=== PATIENT | male | born 1960 | race Two or more races ===

== ENCOUNTER 2022-11-12 06:23 | Outpatient (REF) | payer MEDICARE, MEDICAID, SELFPAY ==
[2022-11-12 06:33] LABS: MANUAL DIFF FLAG NO
[2022-11-12 07:38] LABS: Basophils Percent Auto 0.5 % (0-2); Eosinophils Absolute Auto 0.2 X10*3/uL (0.0-0.4); Eosinophils Percent Auto 2.9 % (0-4); Hematocrit 43.6 % (42.0-52.0); Hemoglobin 14.5 g/dl (14.0-18.0); Imm Gran Abs Auto 0.03 X10*3/uL (0.00-0.03); Imm Gran Pct Auto 0.4 % (0.0-0.4); Lymphocytes Absolute Auto 1.2 X10*3/uL (1.2-4.9); Lymphocytes Percent Auto 14.3 % (20-40); Mean Corpuscular HGB Conc 33.3 g/dl (31.0-36.0); Mean Corpuscular Hemoglobin 29.8 pg (27.0-33.0); Mean Corpuscular Volume 89.5 fL (80.0-98.0); Mean Platelet Volume 11.5 fL (9.4-12.4); Monocytes Absolute Auto 0.8 X10*3/uL (0.1-1.2); Monocytes Percent Auto 9.9 % (2-11); Neutrophils Absolute Auto 6.1 x10*3/uL (2.0-8.3); Platelet Count 221 X10*3/uL (160-400); Red Blood Count 4.87 X10*6/uL (4.60-5.80); Red Cell Distribution Width 12.8 % (11.0-16.0); White Blood Count 8.4 X10*3/uL (4.8-10.8)
[2022-11-12 07:51] LABS: Estimated Average Glucose 131 mg/dL; Hemoglobin A1c % 6.2 %
[2022-11-12 08:23] LABS: Alanine Aminotransferase 27 U/L (0-40); Alkaline Phosphatase 59 U/L (39-117); Anion Gap 17 (12-20); Aspartate Amino Transferase 33 U/L (5-37); Bilirubin Total 0.9 mg/dL (0.0-1.0); Blood Urea Nitrogen 14 mg/dL (9-16); Calcium 9.6 mg/dL (8.4-10.2); Carbon Dioxide 27 mmol/L (22-29); Chloride 103 mmol/L (96-108); Cholesterol 212 mg/dL; Estimated Glomerular Filt Rate 44; Glucose Random 134 mg/dL (60-115); HDL Cholesterol 50 mg/dL; LDL Cholesterol Calculated 118 mg/dl; Sodium 142 mmol/L (135-145); Total Protein 7.6 g/dL (6.5-8.0); Triglycerides 220 mg/dL
[2022-11-12 08:31] LABS: PSA,Total (Free>4and<10) 1.32 ng/mL (0.00-4.00); TSH reflex Free T4 > 100.00 uIU/mL (0.32-4.0); Vitamin D 25-OH Total 23.8 ng/mL (>30)
[2022-11-12 09:23] LABS: Free T4 (Free Thyroxine) < 0.42 ng/dL (0.71-1.85)
== END 2022-11-12 06:24 | disposition home or self-care (01) ==
LOC: HO.LAB 06:23
PROVIDERS: PCP Nurse Practitioner Family; Visit Provider Nurse Practitioner Family
DX: E03.9 Hypothyroidism, unspecified (principal); E55.9 Vitamin D deficiency, unspecified; E78.5 Hyperlipidemia, unspecified; E11.9 Type 2 diabetes mellitus without complications; I10 Essential (primary) hypertension; Z13.0 Encounter for screening for diseases of the blood and blood-forming organs and certain disorders involving the immune mechanism; Z12.5 Encounter for screening for malignant neoplasm of prostate
CPT/HCPCS: 36415; 80053; 80061; 82306; 83036; 84153; 84439; 84443; 85025

== ENCOUNTER 2022-12-10 07:52 | Outpatient (REF) | payer MEDICARE, MEDICAID, SELFPAY ==
[2022-12-10 09:22] LABS: Alanine Aminotransferase 18 U/L (0-40); Albumin Level 4.5 g/dL (3.5-5.0); Alkaline Phosphatase 42 U/L (39-117); Anion Gap 13 (12-20); Aspartate Amino Transferase 20 U/L (5-37); Blood Urea Nitrogen 17 mg/dL (9-16); Calcium 9.3 mg/dL (8.4-10.2); Carbon Dioxide 27 mmol/L (22-29); Chloride 105 mmol/L (96-108); Estimated Glomerular Filt Rate 53; Glucose Random 133 mg/dL (60-115); Potassium 5.1 mmol/L (3.3-5.1); Sodium 140 mmol/L (135-145); TSH reflex Free T4 1.18 uIU/mL (0.32-4.0)
== END 2022-12-10 07:53 | disposition home or self-care (01) ==
LOC: HO.LAB 07:52
PROVIDERS: PCP Nurse Practitioner Family; Visit Provider Nurse Practitioner Family
DX: R79.89 Other specified abnormal findings of blood chemistry (principal); E03.9 Hypothyroidism, unspecified
CPT/HCPCS: 36415; 80053; 84443

== ENCOUNTER → 2023-02-18 13:54 | Outpatient (BNVA) | payer OTHER, SELFPAY | PROVIDERS: PCP Nurse Practitioner Family; Visit Provider Nurse Practitioner Family ==

== ENCOUNTER 2023-02-28 00:27 | Emergency (ER) | payer OTHER, SELFPAY ==
[2023-02-28 00:36] VITALS: BP 111/81; PULSE 92; RESP 24; TEMP 37.1; O2SAT 96; BMI 30.3
--- NOTE | 2023-02-28 01:10 | ECG_ITS ---
Test Reason : SOB Blood Pressure : / mmHG Vent. Rate : 097 BPM Atrial Rate : 097 BPM P-R Int : 146 ms QRS Dur : 074 ms QT Int : 328 ms P-R-T Axes : 064 007 047 degrees QTc Int : 416 ms Normal sinus rhythm Normal ECG No previous ECGs available Referred By: Generic ED Physician Electronically Signed By:Mio Charles
[2023-02-28 01:25] LABS: MANUAL DIFF FLAG NO
[2023-02-28 01:30] LABS: Basophils Percent Auto 0.3 % (0-2); Eosinophils Absolute Auto 0.1 X10*3/uL (0.0-0.4); Eosinophils Percent Auto 1.1 % (0-4); Hematocrit 41.4 % (42.0-52.0); Hemoglobin 13.8 g/dl (14.0-18.0); Imm Gran Abs Auto 0.03 X10*3/uL (0.00-0.03); Imm Gran Pct Auto 0.5 % (0.0-0.4); Lymphocytes Absolute Auto 1.1 X10*3/uL (1.2-4.9); Lymphocytes Percent Auto 16.8 % (20-40); Mean Corpuscular HGB Conc 33.3 g/dl (31.0-36.0); Mean Corpuscular Hemoglobin 28.8 pg (27.0-33.0); Mean Corpuscular Volume 86.3 fL (80.0-98.0); Mean Platelet Volume 10.7 fL (9.4-12.4); Monocytes Absolute Auto 0.6 X10*3/uL (0.1-1.2); Monocytes Percent Auto 9.5 % (2-11); Neutrophils Absolute Auto 4.6 x10*3/uL (2.0-8.3); Neutrophils Percent Auto 71.8 % (45-73); Platelet Count 267 X10*3/uL (160-400); Red Cell Distribution Width 11.7 % (11.0-16.0); White Blood Count 6.4 X10*3/uL (4.8-10.8)
[2023-02-28 01:38] LABS: INTERNATIONAL NORM RATIO 0.8 (0.9-1.1)
[2023-02-28 01:39] LABS: Anion Gap 13 (12-20); Blood Urea Nitrogen 16 mg/dL (9-16); Calcium 9.6 mg/dL (8.4-10.2); Carbon Dioxide 27 mmol/L (22-29); Chloride 105 mmol/L (96-108); Creatinine Clr Calc Pharmacy 57.8; Estimated Glomerular Filt Rate 55; Glucose Random 198 mg/dL (60-115); Potassium 4.3 mmol/L (3.3-5.1); Sodium 141 mmol/L (135-145)
[2023-02-28 01:45] VITALS: BP 140/73; PULSE 90; RESP 15; O2SAT 96
[2023-02-28 01:47] LABS: Troponin-I High Sensitivity 3.3 ng/L (<3.5-35.0)
--- NOTE | 2023-02-28 01:53 | ED.GENADULT ---
HPI - General Adult General Chief complaint: Dyspnea Stated complaint: Acid Reflex issue Time Seen by Provider: 02/28/23 00:37 Source: patient Mode of arrival: ambulatory Limitations: no limitations History of Present Illness HPI narrative: Patient with history of gastric reflux on Protonix lately been acting up had food at 15:30 went to sleep woke with nausea and vomited 3 times with acid feeling in the throat patient has not had endoscopy at no recent illness/urinary complaints no abdominal discomfort Related Data Previous Rx's Medication Instructions Recorded amlodipine 5 mg tablet 5 mg PO DAILY #30 tabs 11/12/22 aspirin 81 mg tablet,delayed 81 mg PO DAILY #30 tabs 11/12/22 release atorvastatin 20 mg tablet 20 mg PO DAILY #30 tabs 11/12/22 clonazepam 1 mg tablet 1 mg PO BEDTIME #14 tabs 11/12/22 fenofibrate 120 mg tablet 120 mg PO DAILY #30 tabs 11/12/22 levothyroxine 150 mcg capsule 150 mcg PO DAILY #30 caps 11/12/22 losartan 100 mg tablet 100 mg PO DAILY #30 tabs 11/12/22 metformin 850 mg tablet 850 mg PO DAILY #30 tabs 11/12/22 tamsulosin 0.4 mg capsule (Flomax) 0.4 mg PO DAILY #30 caps 11/12/22 cyclobenzaprine 5 mg tablet 5 mg PO TID PRN muscle spasm #14 12/12/22 tabs bisacodyl 5 mg tablet,delayed 10 mg PO ONCE 1 day #2 tabs 02/18/23 release (Dulcolax (bisacodyl)) docusate sodium 100 mg capsule 100 mg PO BEDTIME #90 caps 02/18/23 pantoprazole 40 mg tablet,delayed 40 mg PO DAILY #90 tabs 02/18/23 release polyethylene glycol 3350 17 238 g PO ONCE #238 grams 02/18/23 gram/dose oral powder (Miralax) sucralfate 1 gram tablet 1 g PO BID #60 tabs 02/28/23 Allergies Allergy/AdvReac Type Severity Reaction Status Date / Time No Known Allergies Allergy Verified 02/18/23 14:10 [No Known Allergies*] Review of Systems Review of Systems: Yes all other systems are reviewed and are negative PMFSH Past Medical History Medical History Tubular adenoma of colon Vitamin D deficiency Family History Family History Mother Gangrene Father Diabetes Brother Diabetes Sister Diabetes Social History Social History Housing: Apartment Alcohol intake: current Alcohol intake frequency: holidays/special occasions only Patient Tobacco Use Status: Former Tobacco user Tobacco use type: Cigarette Years Smoked: Quit 6 years ago. Smoked in Last 30 Days: No e-Cigarette/Vaping Use: Never Used Use of substances other than those prescribed or required for medical reasons: No Advance Directives: No Advance Directives Information Provided: Yes service: No Current occupational status: retired Cognitive needs: No Hearing needs: No Vision needs: Yes (reading glasses) Physical Exam ED Vital Signs: Vital Signs - 24 hr 02/28/23 00:36 02/28/23 01:45 Temperature 98.7 F Pulse Rate 92 90 Respiratory Rate 24 H 15 Blood Pressure 111/81 140/73 H Pulse Oximetry 96 96 Oxygen Delivery Method Room Air Room Air BMI result Body Mass Index 30.3 Appearance: Alert. Oriented X3. No acute distress. Eyes: PERRLA, No Nystagmus ENT: Pharynx normal. Oral Mucosa moist Neck: Normal inspection. Neck supple. CVS: Normal heart rate and rhythm. Pulses normal. Respiratory: No respiratory distress. Equal air entry bilateral, no wheezing/rales/rhonchi Abdomen: Soft and nontender. Bowel sounds are present, no mass palpable, no CVA tenderness Skin: Skin warm and dry. Normal skin color. Normal skin turgor. Extremities: No lower extremity edema. No calf tenderness Neuro: Oriented X 3. No motor deficit. No sensory deficit.No cerebellar signs , cranial nerves II-XII intact Medications Administered Discontinued Medications Generic Name Dose Route Start Last Admin Trade Name Freq PRN Reason Stop Dose Admin Famotidine 20 mg 02/28/23 02:02 02/28/23 02:34 Famotidine/Pf 20 Mg/2 Ml Vial IVPUSH 02/28/23 02:03 20 mg ONCE ONE Administration Sodium Chloride 1,000 mls @ 999 mls/hr 02/28/23 02:02 02/28/23 02:34 Ns IV 02/28/23 03:02 999 mls/hr .Q1H1M ONE Administration Ondansetron HCl 4 mg 02/28/23 02:02 02/28/23 02:34 Ondansetron Hcl 4 Mg/2 Ml Vial IVPUSH 02/28/23 02:03 4 mg ONCE ONE Administration Medical Decision Making Medical Decision Making [facility] Narrative: Patient has stable labs with chronic gastritis has not seen any public address system mechanic yet plan to see you soon t, will discharge home advised to continue Protonix add sucralfate Differential Diagnosis Differential Diagnoses: The differential diagnosis associated with the presentation includes Gastritis/pancreatitis/gastric ulcer Lab Data [facility] Lab Attestation statement: I reviewed the patient's lab results. 02/28/23 01:21 02/28/23 01:21 Labs: Lab Results 02/28/23 02/28/23 02/28/23 Range/Units 01:21 01:21 01:21 WBC 6.4 (4.8-10.8) X10*3/uL RBC 4.80 (4.60-5.80) X10*6/uL Hgb 13.8 L (14.0-18.0) g/dl Hct 41.4 L (42.0-52.0) % MCV 86.3 (80.0-98.0) fL MCH 28.8 (27.0-33.0) pg MCHC 33.3 (31.0-36.0) g/dl RDW 11.7 (11.0-16.0) % Plt Count 267 (160-400) X10*3/uL MPV 10.7 (9.4-12.4) fL Immature Gran % (Auto) 0.5 H (0.0-0.4) % Neut % (Auto) 71.8 (45-73) % Lymph % (Auto) 16.8 L (20-40) % [place] % (Auto) 9.5 (2-11) % Eos % (Auto) 1.1 (0-4) % Baso % (Auto) 0.3 (0-2) % Lymph # (Auto) 1.1 L (1.2-4.9) X10*3/uL [place] # (Auto) 0.6 (0.1-1.2) X10*3/uL Eos # (Auto) 0.1 (0.0-0.4) X10*3/uL Baso # (Auto) 0.0 (0.0-0.2) X10*3/uL Abs Immat Gran (auto) 0.03 (0.00-0.03) X10*3/uL Absolute Neuts (auto) 4.6 (2.0-8.3) x10*3/uL Absolute Nucleated RBC 0.000 (0.0-0.012) X10*3/uL Nucleated RBC % (auto) 0.0 (0.0-0.2) /100WBC PT 10.0 L (11.1-13.3) SEC INR 0.8 L (0.9-1.1) Sodium 141 (135-145) mmol/L Potassium 4.3 (3.3-5.1) mmol/L Chloride 105 (96-108) mmol/L Carbon Dioxide 27 (22-29) mmol/L Anion Gap 13 (12-20) BUN 16 (9-16) mg/dL Creatinine 1.32 (0.5-1.4) mg/dL Estim Creat Clear Calc 57.8 Estimated GFR 55 Random Glucose 198 H (60-115) mg/dL Calcium 9.6 (8.4-10.2) mg/dL Total Bilirubin 0.3 (0.0-1.0) mg/dL Direct Bilirubin 0.1 (0.0-0.5) mg/dL AST 27 (5-37) U/L ALT 42 H (0-40) U/L Alkaline Phosphatase 45 (39-117) U/L Troponin I High Sens (<3.5-35.0) ng/L Total Protein 7.0 (6.5-8.0) g/dL Albumin 4.3 (3.5-5.0) g/dL Lipase 25 (8-78) U/L 02/28/23 Range/Units 01:21 WBC (4.8-10.8) X10*3/uL RBC (4.60-5.80) X10*6/uL Hgb (14.0-18.0) g/dl Hct (42.0-52.0) % MCV (80.0-98.0) fL MCH (27.0-33.0) pg MCHC (31.0-36.0) g/dl RDW (11.0-16.0) % Plt Count (160-400) X10*3/uL MPV (9.4-12.4) fL Immature Gran % (Auto) (0.0-0.4) % Neut % (Auto) (45-73) % Lymph % (Auto) (20-40) % [place] % (Auto) (2-11) % Eos % (Auto) (0-4) % Baso % (Auto) (0-2) % Lymph # (Auto) (1.2-4.9) X10*3/uL [place] # (Auto) (0.1-1.2) X10*3/uL Eos # (Auto) (0.0-0.4) X10*3/uL Baso # (Auto) (0.0-0.2) X10*3/uL Abs Immat Gran (auto) (0.00-0.03) X10*3/uL Absolute Neuts (auto) (2.0-8.3) x10*3/uL Absolute Nucleated RBC (0.0-0.012) X10*3/uL Nucleated RBC % (auto) (0.0-0.2) /100WBC PT (11.1-13.3) SEC INR (0.9-1.1) Sodium (135-145) mmol/L Potassium (3.3-5.1) mmol/L Chloride (96-108) mmol/L Carbon Dioxide (22-29) mmol/L Anion Gap (12-20) BUN (9-16) mg/dL Creatinine (0.5-1.4) mg/dL Estim Creat Clear Calc Estimated GFR Random Glucose (60-115) mg/dL Calcium (8.4-10.2) mg/dL Total Bilirubin (0.0-1.0) mg/dL Direct Bilirubin (0.0-0.5) mg/dL AST (5-37) U/L ALT (0-40) U/L Alkaline Phosphatase (39-117) U/L Troponin I High Sens 3.3 (<3.5-35.0) ng/L Total Protein (6.5-8.0) g/dL Albumin (3.5-5.0) g/dL Lipase (8-78) U/L Discharge Plan Discharge Clinical Impression: Chronic gastritis Patient Disposition: Home, Self-Care Instructions: Gastritis (ED) Additional Instructions: Continue medications as prescribed by your PCP Start taking sucralfate 1 tablet half an hour before you have meals Follow with PCP/public address system mechanic for endoscopy Prescriptions: New sucralfate 1 gram tablet 1 g PO BID Qty: 60 0RF No Action amlodipine 5 mg tablet 5 mg PO DAILY Qty: 30 3RF aspirin 81 mg tablet,delayed release (DR/EC) 81 mg PO DAILY Qty: 30 3RF atorvastatin 20 mg tablet 20 mg PO DAILY Qty: 30 3RF clonazepam 1 mg tablet 1 mg PO BEDTIME Qty: 14 0RF Rx Instructions: administer 30 minutes before bedtime fenofibrate 120 mg tablet 120 mg PO DAILY Qty: 30 3RF levothyroxine 150 mcg capsule 150 mcg PO DAILY Qty: 30 3RF losartan 100 mg tablet 100 mg PO DAILY Qty: 30 3RF metformin 850 mg tablet 850 mg PO DAILY Qty: 30 3RF tamsulosin [Flomax] 0.4 mg capsule 0.4 mg PO DAILY Qty: 30 3RF cyclobenzaprine 5 mg tablet 5 mg PO TID PRN (Reason: muscle spasm) Qty: 14 0RF pantoprazole 40 mg tablet,delayed release (DR/EC) 40 mg PO DAILY Qty: 90 2RF Rx Instructions: take one tablet half an hour before breakfast bisacodyl [Dulcolax (bisacodyl)] 5 mg tablet,delayed release (DR/EC) 10 mg PO ONCE 1 Days Qty: 2 0RF Rx Instructions: take 2 tabs at noon the day before your colonoscopy polyethylene glycol 3350 [Miralax] 17 gram/dose powder 238 g PO ONCE Qty: 238 0RF Rx Instructions: As directed by gastroenterology department at [facility] docusate sodium 100 mg capsule 100 mg PO BEDTIME Qty: 90 3RF Referrals: Thanh Nwoak MD [Physician] - 2 weeks Print Language: Czech
[2023-02-28 02:15] LABS: Alanine Aminotransferase 42 U/L (0-40); Albumin Level 4.3 g/dL (3.5-5.0); Alkaline Phosphatase 45 U/L (39-117); Aspartate Amino Transferase 27 U/L (5-37); Bilirubin Direct 0.1 mg/dL (0.0-0.5); Bilirubin Total 0.3 mg/dL (0.0-1.0); Lipase 25 U/L (8-78)
[2023-02-28] MEDS: Famotidine/PF 20 MG/2 ML VIAL IVPUSH (02:34)
[2023-02-28] MEDS: ondansetron HCL 4 MG/2 ML VIAL IVPUSH (02:34)
[2023-02-28] MEDS: 0.9 % Sodium Chloride 1,000 ML 999 ML IV (02:34)
== END 2023-02-28 03:54 | disposition home or self-care (01) ==
PROVIDERS: Emergency Provider Internal Medicine; PCP Nurse Practitioner Family
DX: K29.50 Unspecified chronic gastritis without bleeding (principal); R11.2 Nausea with vomiting, unspecified; I10 Essential (primary) hypertension; E78.5 Hyperlipidemia, unspecified; Z79.82 Long term (current) use of aspirin; Z79.899 Other long term (current) drug therapy
CPT/HCPCS: 36415; 80048; 80076; 83690; 84484; 85025; 85610; 93005; 96361; 96374; 96375; 99284; 99285; J2405

== ENCOUNTER → 2023-02-28 01:10 | Outpatient (BNV) | payer OTHER, SELFPAY | PROVIDERS: Emergency Provider Internal Medicine; PCP Nurse Practitioner Family; Visit Provider Internal Medicine Cardiovascular Disease | DX: R06.02 Shortness of breath (principal) | CPT/HCPCS: 93010 ==

== ENCOUNTER 2023-03-05 10:00 | Outpatient (RCR) | payer OTHER, SELFPAY ==
--- NOTE | 2023-02-11 15:19 | MHC.PT.EP ---
[facility] [place] Office [place] Office [place] Office [address] Jessica Jefferson [address] [phone] F: [phone] F: [phone] F: [phone] F: [phone] Physical Therapy Plan of Care Date of Evaluation: Date of Surgery: Diagnosis: LUMBAR BACK PAIN WITH RADICULOPATHY LEFT LE Assessment: 62 YO MALE REF TO PT W PROGRESSIVE H/O LBP AND MORE RECENT RADIC SXS INTO Lt LE. HE RESIDES W HIS DTR IN AN APT AND LEADS A VERY SEDENTARY LIFESTYLE. THE Pt HAS SIGNIF SOFT TISSUE TIGHTNESS IN SHAD HIPS AND POSTERIOR CHAIN, W DECR LUMBOPELVIC AND PROX LEs STRENGTH, AND LIMITED FUNCT MOB TOLERANCE. HE BENEFITTED FROM INITIATING A HEP AND EDUC RE GRADUAL INTRO TO MOVEMENT THROUGHTOUT HIS DAY. HE IS A GOOD CANDIDATE FOR PT TO ADDRESS THE ABOVE FINDINGS , PAIN MGMT, AND DEV A HEP. Frequency and Duration: The patient will be seen 2x WK x 5 WKS Short Term Goals: *INITIATE HEP TO ADDRESS HIP HYPOFLEXIBILITY *Pt'S LBP AND Lt LE RADIC SXS WILL DECR TO -09/27 *Pt DEMON APPROP POSTURE/ BODY MECH W BED MOB/ POSITIONING/ SIT <-> STAND/ CAR TRANSFERS *Pt DISPLAY WFL RANGE W FUNCTIONAL SQUAT MECHANICS Fpc Goals: *Pt WILL IMPROVE LUMBOPELVIC/ Lt LE STRENGTH TO AT LEAST 5-/5 *Pt DEMON WFL HS/ HIP FLEXIB *Pt IMPROVE FUNCTIONAL MOBILITY AND FITNESS WALKING EVIDENT W IMPROVED OSWESTRY SCORE (AT EVAL 33/45 ) *Pt INDEP W PROGR HEP AND SELF-SX MGMT TECHN Treatment Plan: Modalities to reduce pain, spasms and effusion. Manual therapy to restore motion and function. Therapeutic exercise to improve strength and flexibility. Neuromuscular re-education for posture and balance. Therapeutic activities to return to functional activities of daily living. Electronically signed by: MONROE HSIEH,PT Please sign and return to therapist. Thank you for your referral.
--- NOTE | 2023-05-08 07:46 | MHC.PT.DC ---
[facility] [place] Office [place] Office [place] Office [address] Jessica Jefferson [address] [phone] F: [phone] F: [phone] F: [phone] F: [phone] Physical Therapy Discharge Report Diagnosis: LUMBAR BACK PAIN WITH RADICULOPATHY LEFT LE Date of Surgery: Date of Evaluation: 02/11/23 Date of Discharge: 05/08/23 Treatments to Date: 7 Cancellations to Date: 0 No Shows to Date: 0 Discharge Status: Improved Function Independent with HEP Patient Elected to Stop Discharge Summary: THE Pt PROGRESSED IN PT EVIDENT WITH HIS REDUCED LUMBOSACRAL TISSUE TENSION, DECR SUBJECTIVE PAIN, AND IMPROVED FUNCTIONAL MOBILITY TOLERANCE. HE WAS INDEP W HIS HEP. HE RECEIVED 7 VISITS IN PT AND HE DID NOT BOOK ADDITIONAL APPTS. Electronically signed by: MONROE HSIEH,PT Please sign and return to therapist. Thank you for your referral.
== END 2023-05-08 07:46 | disposition home or self-care (01) ==
LOC: HO.PT 10:00
PROVIDERS: PCP Nurse Practitioner Family; Visit Provider Nurse Practitioner Family
DX: M54.16 Radiculopathy, lumbar region (principal)
CPT/HCPCS: 97110; 97140; 97162

== ENCOUNTER 2023-03-17 13:43 | Outpatient (AMB) | payer OTHER, SELFPAY ==
[2023-03-17 14:09] VITALS: BP 126/68; PULSE 67; O2SAT 97; BMI 30.6
--- NOTE | 2023-03-17 14:09 | MHC.PC.OV ---
Vital Signs 03/17/23 14:09 Height 5 ft 6 in Weight 189 lb 8 oz BMI 30.6 BP 126/68 Blood Pressure Location Lt brachial Position Sitting Pulse 67 Pulse Source Pulse Oximeter Pulse Oximetry (%) 97 Oxygen Delivery Method Room Air Intake Visit Reasons: DM, HTN, Hypothyroid Intake Note: Patient is here to follow up on DMII, HTN and Hypothyroid. Emergency Management Program Specialist Required: Yes Emergency Management Program Specialist Language: E Commerce Marketing Analyst Name: [id number] Gilles Information Interpreted: non-clinical & clinical Accompanied by: Self / Same As Patient Allergies No Known Allergies [No Known Allergies*] Allergy (Verified 03/17/23 14:17) Tobacco use date assessed: 12/12/22 Fall risk assessment: No Falls in past year Last assessed Fall Risk: 03/17/23 Dental Screening Dental Screen Date: 03/17/23 Did you have a dental visit in the last 12 months?: No Did you have a dental problem in the last 6 months where you did not have access to dental care?: No Was dental information given to patient?: Yes HPI HPI Comments History of Present Illness Details 62 year old male has a history significant for hyperlipidemia, hypertension, hypothyroidism, DM and lumbar back pain. Presents today for follow up visit. HGB A1C 5.9%. Patient's blood pressure below goal today. Patient reports completed physical therapy continues to side lumbar back pain with lumbar radiculopathy down left leg. Patient reports has difficulty climbing stairs and his has a 3rd floor apartment, patient requesting a letter for 1st floor apartment. Letter given. Review of notes patient was seen in the emergency room for gastritis was started on sulcrafate b.i.d., patient reports still waiting for a call from Gastroenterology for an appointment. [facility] Medical History Tubular adenoma of colon Vitamin D deficiency Family History Mother Gangrene Father Diabetes Brother Diabetes Sister Diabetes Social History Housing: Apartment Alcohol intake: current Alcohol intake frequency: holidays/special occasions only Patient Tobacco Use Status: Former Tobacco user Tobacco use type: Cigarette Years Smoked: Quit 6 years ago. e-Cigarette/Vaping Use: Never Used service: No Current occupational status: retired Cognitive needs: No Hearing needs: No Vision needs: Yes (reading glasses) Questionnaire Thrive Questionnaire Date Thrive assessed: 11/11/22 SANDRA-7 AMB Questionnaire SANDRA-7 Date SANDRA - 7 assessed: 11/11/22 Source: Developed by Drs. Palmer Corona, Lucila Samuels, Trevon Francisco and colleagues, with an educational ryder from [employer]. Review of Systems Const Denies chills, Denies fatigue, Denies fever(s) and Denies poor appetite Eyes Denies no additional complaints ENT Reports Normal hearing present Card Denies chest pain, Denies syncope, Denies rapid heart rate and Denies dyspnea Resp Denies cough and Denies dyspnea GI Denies change in stool character, Denies constipation, Denies diarrhea, Denies nausea and Denies vomiting Denies dysuria, Denies urinary frequency and Denies urinary urgency Musc Reports back pain, Reports numbness (down left leg ), Reports radiating pain into limb and Reports stiffness Neuro Reports Normal hearing present, Denies confusion, Denies syncope and Reports numbness (down left leg ) Psych Denies confusion Endo Denies fatigue Physical exam (Primary Care) Vital Signs: Last Vital Signs Pulse 67 03/17/23 14:09 BP 126/68 03/17/23 14:09 Pulse Ox 97 03/17/23 14:09 Oxygen Delivery Method Room Air 03/17/23 14:09 BMI result Body Mass Index 30.6 Tobacco/Smoking Status: Tobacco use Status Tobacco use date assessed 12/12/22 03/17/23 14:20 Patient Tobacco Use Status Former Tobacco user 03/17/23 14:20 Tobacco use type Cigarette 03/17/23 14:20 e-Cigarette/Vaping Use Never Used 03/17/23 14:20 Thrive Assessment: Date of Thrive Assessment Date Thrive assessed 11/11/22 03/17/23 14:20 Const General: No confusion Orientation/consciousness: No confusion HENMT Head: Yes normocephalic and Yes atraumatic Eyes Conjunctivae: conjunctivae normal Chest Chest palpation & inspection: normal inspection of the chest Resp Effort & Inspection: normal respiratory effort Auscultation: clear to auscultation bilaterally, no crackles, no rhonchi and no wheezes Cardio Rate: regular rate Rhythm: regular rhythm Heart sounds: S1 normal heart sound present and S2 normal heart sound present GI Inspection: Yes normal to inspection Back/Spine/Pelvis Thoracic/Lumbar Spine: thoracic and lumbar spine normal to inspection, paraspinal muscle tenderness on the left, thoracic spinal tenderness and No lumbar spinal tenderness Neuro General: No confusion Cranial nerves: Yes Normal hearing present Extrem General: No edema Results AMB Hemoglobin A1c AMB Hemoglobin A1c 5.9 % Last Edit by OTF Murillo on 03/17/23 14:22 Results Reviewed Results Reviewed: Laboratory Last Values Hgb A1c (Clinic) 5.9 % (4.0-6.0) 03/17/23 14:21 Assessment and Plan Assessment & Plan (1) Hyperlipidemia: Code(s): E78.5 - Hyperlipidemia, unspecified Plan: Continue on atorvastatin 20 mg daily. Follow low-cholesterol diet. (2) Hypertension: Code(s): I10 - Essential (primary) hypertension Plan: Continue on amlodipine 5 mg daily and losartan 100 mg daily. Follow low-salt diet exercise. Blood pressure goal less than 140/90. (3) Hypothyroidism: Code(s): E03.9 - Hypothyroidism, unspecified Plan: Continue on levothyroxine 150 mcg daily. (4) Type 2 diabetes mellitus: Code(s): E11.9 - Type 2 diabetes mellitus without complications Plan: Continue on metformin 850 mg daily. Patient educated to decrease the amount of carbohydrate intake such as pasta, bread, rice and potatoes are all sugar in addition to the sweet stuff. Remember that fruits are good but they also have sugar.Hemoglobin A1c goal of less than 6.5% (5) Lumbar back pain with radiculopathy affecting left lower extremity: Code(s): M54.16 - Radiculopathy, lumbar region Plan: Given patient continues to experiencing left-sided low back pain with radiculopathy the symptoms stone left lower leg will proceed with lumbar spine x-ray symptoms continue to persist following completion of physical therapy will proceed with further imaging. Lumbar spine x-ray ordered. Can continue to take [id number] Tylenol as needed for pain or ibuprofen. Lidoderm patches sent to patient's pharmacy. Follow-up in 1 month (6) Gastritis: Code(s): K29.70 - Gastritis, unspecified, without bleeding Plan: Continue on sulcrafate. Patient awaiting on appointment with Gastroenterology. Plan Follow-up in 3 months. Orders: Orders Comprehensive [place]. Panel Fast Today E11.9 - Type 2 diabetes mellitus without complications Lipid Panel Today Z13.220 - Encounter for screening for lipoid disorders TSH reflex Free T4 Today Z13.29 - Encounter for screening for other suspected endocrine disorder Microalbumin, Random (w Creat) Today E11.9 - Type 2 diabetes mellitus without complications XR lumbar spine 2-3V Today M54.16 - Radiculopathy, lumbar region AMB Hemoglobin A1c Today E11.9 - Type 2 diabetes mellitus without complications Medications: New lidocaine 5% (Lidoderm) leave on most painful area for up to 12 hrs 1 patch topical DAILY 15 ea 0RF Coding Level of Care Code Est Pt Level 4 (52024) Diagnoses Hyperlipidemia E78.5 Hypertension I10 Hypothyroidism E03.9 Type 2 diabetes mellitus E11.9 Lumbar back pain with radiculopathy affecting left lower extremity M54.16 Gastritis K29.70
== END 2023-03-17 14:49 | disposition home or self-care (01) ==
PROVIDERS: Visit Provider Nurse Practitioner Family
DX: E78.5 Hyperlipidemia, unspecified (principal); I10 Essential (primary) hypertension; E03.9 Hypothyroidism, unspecified; E11.9 Type 2 diabetes mellitus without complications; M54.16 Radiculopathy, lumbar region; K29.70 Gastritis, unspecified, without bleeding
CPT/HCPCS: 83036; 99214

== ENCOUNTER 2023-03-19 07:58 | Outpatient (REF) | payer OTHER, MEDICAID, SELFPAY ==
--- NOTE | ~2023-03-19 | XR_ITS ---
EXAMINATION: XR LUMBOSACRAL SPINE CLINICAL INFORMATION: Radiculopathy, pain in the left side. COMPARISON: None available. TECHNIQUE: Three views of the lumbosacral spine. FINDINGS: No acute compression deformity or subluxation. Pars defects at L5-S1. Mild intervertebral disc height loss and facet arthropathy at L5-S1 with minimal grade 1 degenerative anterolisthesis and some degree of neural foraminal encroachment. SI joints are symmetric. Pubic symphysis is maintained. No significant paraspinal soft tissue abnormality. XR/XR lumbar spine 2-3V IMPRESSION: 1. No acute compression deformity or subluxation. 2. Discogenic degenerative disc abnormality, facet arthropathy and neural foraminal encroachment at L5-S1. Recommend further evaluation with an MRI of the lumbar spine if clinically deemed appropriate.
[2023-03-19 09:15] LABS: Alanine Aminotransferase 35 U/L (0-40); Albumin Level 4.4 g/dL (3.5-5.0); Alkaline Phosphatase 41 U/L (39-117); Anion Gap 13 (12-20); Aspartate Amino Transferase 26 U/L (5-37); Bilirubin Total 0.5 mg/dL (0.0-1.0); Blood Urea Nitrogen 12 mg/dL (9-16); Calcium 9.6 mg/dL (8.4-10.2); Carbon Dioxide 27 mmol/L (22-29); Chloride 107 mmol/L (96-108); Cholesterol 144 mg/dL (<200); Estimated Glomerular Filt Rate 58; Glucose Fasting 116 mg/dL (60-99); HDL Cholesterol 40 mg/dL (>40); LDL Cholesterol Calculated 78 mg/dL (<100); Potassium 4.7 mmol/L (3.3-5.1); Sodium 142 mmol/L (135-145); Triglycerides 132 mg/dL (<150)
[2023-03-19 09:31] LABS: TSH reflex Free T4 0.09 uIU/mL (0.32-4.0)
[2023-03-19 09:41] LABS: Creatinine Urine 188.49 mg/dL; Microalbum/Creatinine Ratio Ur 14.8 ug/mg cr (<30)
[2023-03-19 10:06] LABS: Free T4 (Free Thyroxine) 1.21 ng/dL (0.71-1.85)
== END 2023-03-19 07:59 | disposition home or self-care (01) ==
LOC: HO.LAB 07:58
PROVIDERS: PCP Nurse Practitioner Family; Visit Provider Nurse Practitioner Family
DX: E11.9 Type 2 diabetes mellitus without complications (principal); M54.16 Radiculopathy, lumbar region; Z13.220 Encounter for screening for lipoid disorders; Z13.29 Encounter for screening for other suspected endocrine disorder
CPT/HCPCS: 36415; 72100; 80053; 80061; 82043; 84439; 84443

== ENCOUNTER 2023-04-17 10:54 | Outpatient (AMB) | payer OTHER, SELFPAY ==
--- NOTE | 2023-04-17 10:57 | A.OFFPC_ITS ---
Vital Signs 04/17/23 10:58 Height 5 ft 6 in Weight 191 lb 4 oz BMI 30.9 BP 126/70 Blood Pressure Location Lt brachial Position Sitting Respiration 12 Pulse 86 Pulse Source Pulse Oximeter Pulse Oximetry (%) 97 Oxygen Delivery Method Room Air Intake Visit Reasons: Lumbar radiculopathy Chief Design Drafter Required: No Accompanied by: Self / Same As Patient Allergies No Known Allergies [No Known Allergies*] Allergy (Verified 04/17/23 11:03) Tobacco use date assessed: 12/12/22 Fall risk assessment: No Falls in past year Last assessed Fall Risk: 04/17/23 Dental Screening Dental Screen Date: 04/17/23 Did you have a dental visit in the last 12 months?: No Did you have a dental problem in the last 6 months where you did not have access to dental care?: No Was dental information given to patient?: Yes HPI HPI Comments History of Present Illness Details 62 year old male has a history significa nt for hyperlipidemia, hypertension, hypothyroidism, DM and lumbar back pain. Presents today for follow up visit. HGB A1C 5.9% in February. Patient's blood pressure below goal today. Patient reports completed physical therapy continues to side lumbar back pain with lumbar radiculopathy down left leg. Patient states pain has improved since last OV. Patient states has lumbar spine MRI scheduled in April. Patient denies the need for any refills. [facility] Medical History Tubular adenoma of colon Vitamin D deficiency Surgical History (Updated 04/17/23 @ 11:04 by Erica Dickson MA) No pertinent past surgical history Family History Mother Gangrene Father Diabetes Brother Diabetes Sister Diabetes Social History Housing: Apartment Alcohol intake: current Alcohol intake frequency: holidays/special occasions only Patient Tobacco Use Status: Former Tobacco user Tobacco use type: Cigarette Years Smoked: Quit 6 years ago. e-Cigarette/Vaping Use: Never Used service: No Current occupational status: retired Cognitive needs: No Hearing needs: No Vision needs: Yes (reading glasses) Questionnaire Thrive Questionnaire Date Thrive assessed: 11/11/22 SANDRA-7 AMB Questionnaire SANDRA-7 Date SANDRA - 7 assessed: 11/11/22 Source: Developed by Drs. Palmer Corona, Lucila Samuels, Trevon Francisco and colleagues, with an educational ryder from [employer]. Review of Systems Const Denies chills, Denies fatigue, Denies fever(s) and Denies poor appetite Eyes Denies no additional complaints ENT Reports Normal hearing present Card Denies chest pain, Denies syncope, Denies rapid heart rate and Denies dyspnea Resp Denies cough and Denies dyspnea GI Denies change in stool character, Denies constipation, Denies diarrhea, Denies nausea and Denies vomiting Denies dysuria, Denies urinary frequency and Denies urinary urgency Neuro Reports Normal hearing present, Denies confusion and Denies syncope Psych Denies confusion Endo Denies fatigue Physical exam (Primary Care) Vital Signs: Last Vital Signs Pulse 86 04/17/23 10:58 Resp 12 04/17/23 10:58 BP 126/70 04/17/23 10:58 Pulse Ox 97 04/17/23 10:58 Oxygen Delivery Method Room Air 04/17/23 10:58 BMI result Body Mass Index 30.9 Tobacco/Smoking Status: Tobacco use Status Tobacco use date assessed 12/12/22 04/17/23 11:05 Patient Tobacco Use Status Former Tobacco user 04/17/23 11:05 Tobacco use type Cigarette 04/17/23 11:05 e-Cigarette/Vaping Use Never Used 04/17/23 11:05 Thrive Assessment: Date of Thrive Assessment Date Thrive assessed 11/11/22 04/17/23 11:05 Const General: No confusion Orientation/consciousness: No confusion HENIA Head: Yes normocephalic and Yes atraumatic Eyes Conjunctivae: conjunctivae normal Chest Chest palpation & inspection: normal inspection of the chest Resp Effort & Inspection: normal respiratory effort Auscultation: clear to auscultation bilaterally, no crackles, no rhonchi and no wheezes Cardio Rate: regular rate Rhythm: regular rhythm Heart sounds: S1 normal heart sound present and S2 normal heart sound present GI Inspection: Yes normal to inspection Back/Spine/Pelvis Thoracic/Lumbar Spine: thoracic and lumbar spine normal to inspection, No paraspinal muscle tenderness, No thoracic spinal tenderness and No lumbar spinal tenderness Pelvis: no sciatic notch tenderness Neuro General: No confusion Cranial nerves: Yes Normal hearing present Extrem General: No edema Assessment and Plan Assessment & Plan (1) Type 2 diabetes mellitus: Code(s): E11.9 - Type 2 diabetes mellitus without complications Plan: Continue on metformin. Patient educated to decrease the amount of carbohydrate intake such as pasta, bread, rice and potatoes are all sugar in addition to the sweet stuff. Remember that fruits are good but they also have sugar. (2) Hyperlipidemia: Code(s): E78.5 - Hyperlipidemia, unspecified Plan: Continue atorvastatin 20 mg daily. Avoid fried foods, chicken skin, eggs, butter,margarine, pastries and?? red meat. (3) Hypertension: Code(s): I10 - Essential (primary) hypertension Plan: Continue on amlodipine 5 mg daily and losartan 100 mg daily. Blood pressure below goal today 126/70. Follow low-salt diet and exercise. (4) Hypothyroidism: Code(s): E03.9 - Hypothyroidism, unspecified Plan: Continue on levothyroxine 125 mcg daily. (5) Lumbar back pain with radiculopathy affecting left lower extremity: Code(s): M54.16 - Radiculopathy, lumbar region Plan: Lumbar spine MRI scheduled April. Can continue to use Lidoderm patches as needed for pain for [id number] Tylenol or ibuprofen with food to prevent GI upset. Plan Keep scheduled follow-up in May. Coding Level of Care Code Est Pt Level 4 (11955) Diagnoses Type 2 diabetes mellitus E11.9 Hyperlipidemia E78.5 Hypertension I10 Hypothyroidism E03.9 Lumbar back pain with radiculopathy affecting left lower extremity M54.16
[2023-04-17 10:58] VITALS: BP 126/70; PULSE 86; RESP 12; O2SAT 97; BMI 30.9
== END 2023-04-17 11:19 | disposition home or self-care (01) ==
PROVIDERS: PCP Nurse Practitioner Family; Visit Provider Nurse Practitioner Family
DX: E11.9 Type 2 diabetes mellitus without complications (principal); E78.5 Hyperlipidemia, unspecified; I10 Essential (primary) hypertension; E03.9 Hypothyroidism, unspecified; M54.16 Radiculopathy, lumbar region
CPT/HCPCS: 99214

== ENCOUNTER 2023-05-05 11:07 | Outpatient (REF) | payer OTHER, SELFPAY ==
--- NOTE | ~2023-05-05 | MR_ITS ---
EXAMINATION: Lumbar spine MRI. CLINICAL INDICATION: Radiculopathy, lumbar region. MR/MR lumbar spine wo con FINDINGS AND IMPRESSION: The patient attempted the exam and sagittal T2 and sagittal T1 sequences were acquired. However, due to severe discomfort, the examination was subsequently terminated. The lumbar vertebral bodies maintain normal heights. There is grade 1 anterolisthesis of L5 on S1 related to bilateral pars defects. There is moderate disc height loss at L5-S1. There is no significant narrowing of the spinal canal. There is significant neural foraminal stenosis on the right more than left at L5-S1 with compression of both exiting L5 nerve roots. There is no compression of the distal spinal cord.
== END 2023-05-05 11:08 | disposition home or self-care (01) ==
LOC: HO.MRI 11:07
PROVIDERS: PCP Nurse Practitioner Family; Visit Provider Nurse Practitioner Family
DX: M54.16 Radiculopathy, lumbar region (principal)
CPT/HCPCS: 72148

== ENCOUNTER 2023-05-29 10:40 | Outpatient (AMB) | payer OTHER, SELFPAY ==
--- NOTE | 2023-05-29 10:50 | MHC.OFFVIS ---
Intake Intake Visit Reasons: Low back pain Water Quality Assistant Required: Yes Allergies No Known Allergies [No Known Allergies*] Allergy (Verified 04/17/23 11:03) PFSH Medical History (Updated 05/29/23 @ 11:13 by MARÍA Stout) Tubular adenoma of colon Vitamin D deficiency Surgical History (Updated 04/17/23 @ 11:04 by Erica Dickson MA) No pertinent past surgical history Family History Mother Gangrene Father Diabetes Brother Diabetes Sister Diabetes Social History Housing: Apartment Alcohol intake: current Alcohol intake frequency: holidays/special occasions only Patient Tobacco Use Status: Former Tobacco user Tobacco use type: Cigarette Years Smoked: Quit 6 years ago. e-Cigarette/Vaping Use: Never Used service: No Current occupational status: retired Cognitive needs: No Hearing needs: No Vision needs: Yes (reading glasses) Assessment & Plan Assessment & Plan (1) Lumbar radiculopathy: Code(s): M54.16 - Radiculopathy, lumbar region Plan Dear Emily, Thank you for referring Mr Camejo to our office today. He is a 63-year-old Australian-speaking gentleman who has had a multiyear history of left leg pain going down into his outer thigh and his outer calf. He does not have much in the way of back pain. It comes and goes throughout the day. It is worse with walking. It is not severe. He has tried physical therapy and Tylenol. At this point it is not bad enough that he is considering surgery but is here today to get some information about an MRI which showed he had nerve pinching at L5-S1 and disc erosion. PMH: He has a history of hypothyroidism, diabetes, his A1c is around 7,, vitamin-D deficiency, hypertension, high cholesterol, gastritis, BPH Social hx: He does not smoke Medications: Amlodipine, aspirin, atorvastatin, Klonopin, cyclobenzaprine, Colace, fenofibrate, levothyroxine, losartan, metformin, sucralfate, Flomax Allergies: None Physical exam: He is awake alert oriented, of video ship's pilot was used for this visit, is normal strength of the lower extremities. Gait is normal. Imaging review: He has a lumbar MRI done at [facility] showing a pars defect at L5-S1 with slight spondylolisthesis at L5-S1 with neuroforaminal narrowing. There is only a sagittal image, I cannot see axial cuts to view any other image sequence because apparently the patient was in too much pain to continue. Impression: 63-year-old Australian-speaking gentleman seen here today in the office for primarily left leg pain going down to his outer calf consistent with L5 dermatome. He has an L5-S1 degenerative spondylolisthesis secondary to spondylolysis/pars defects. His pain is intermittent, it is not bad enough to require surgery at this point. He is not interested in surgery. We discussed the natural history of this condition. I did tell him that there are other options like cortisone injections which can be temporary but can be helpful at the pain starts to escalate. He was not very interested in these. If the pain gets worse, we could consider L5-S1 fusion surgery which is generally they standard operation to correct this problem. We would need a new MRI with axial cuts so we can evaluate the vasculature in the area. I told him he should speak with you about the possibility of using Motrin if it is not contraindicated with his other medical problems. I told him to make a 6 month follow-up Ng we can check in on him at that time. He has no specific limitations with his activity. Thank you for allowing us to care for your patient. The total time spent with this visit with this patient was 45 minutes reviewing history, physical exam, lumbar imaging review, and implementation of treatment plan or further diagnostic testing Stephen Clemente MD,PhD [facility] Coding Level of Care Code New Pt Level 4 (77400) Diagnoses Lumbar radiculopathy M54.16
== END 2023-05-29 11:17 | disposition home or self-care (01) ==
PROVIDERS: PCP Nurse Practitioner Family; Referring Provider Nurse Practitioner Family; Visit Provider Physician Assistant
DX: M54.16 Radiculopathy, lumbar region (principal)
CPT/HCPCS: 99204

== ENCOUNTER → 2023-05-29 10:40 | Outpatient (BNVA) | payer OTHER, SELFPAY | PROVIDERS: PCP Nurse Practitioner Family; Referring Provider Nurse Practitioner Family; Visit Provider Physician Assistant | DX: M54.16 Radiculopathy, lumbar region (principal) | CPT/HCPCS: 99202 ==

== ENCOUNTER 2023-06-17 10:36 | Outpatient (AMB) | payer OTHER, SELFPAY ==
--- NOTE | 2023-06-17 10:55 | MHC.PC.OV ---
Vital Signs 06/17/23 10:57 06/17/23 11:07 Height 5 ft 6 in Weight 194 lb 6 oz BMI 31.4 BP 150/82 H 130/70 Blood Pressure Location Lt brachial Lt brachial Position Sitting Sitting Pulse 87 Pulse Source Pulse Oximeter Pulse Oximetry (%) 97 Oxygen Delivery Method Room Air Intake Visit Reasons: HTN,DM,HLD Intake Note: Patient is here to follow up on HTN, DM, HLD. Director Of State Required: Yes Director Of State Language: Gas Pumper Name: [id number] [employer] Information Interpreted: non-clinical & clinical Lead Infrastructure Architect: Not Required per policy Accompanied by: Self / Same As Patient Allergies No Known Allergies [No Known Allergies*] Allergy (Verified 06/17/23 11:15) Medication List - Last Reconciled 06/17/23 by CHRISTINA Clark amlodipine 5 mg PO DAILY aspirin 81 mg PO DAILY atorvastatin 20 mg PO DAILY clonazepam 1 mg PO BEDTIME cyclobenzaprine 5 mg PO TID PRN docusate sodium 100 mg PO BEDTIME fenofibrate micronized 134 mg PO DAILY levothyroxine 125 mcg PO DAILY lidocaine 5% (Lidoderm) 1 patch topical DAILY losartan 100 mg PO DAILY metformin 850 mg PO DAILY pantoprazole 40 mg PO DAILY polyethylene glycol 3350 (Miralax) 238 grams PO ONCE sucralfate 1 g PO BID tamsulosin (Flomax) 0.4 mg PO DAILY Tobacco use date assessed: 06/17/23 Fall risk assessment: No Falls in past year Last assessed Fall Risk: 06/17/23 Dental Screening Dental Screen Date: 06/17/23 Did you have a dental visit in the last 12 months?: Yes Did you have a dental problem in the last 6 months where you did not have access to dental care?: No Was dental information given to patient?: Patient has dentist HPI HPI Comments History of Present Illness Details 62 year old male has a history significant for hyperlipidemia, hypertension, hypothyroidism, DM and lumbar back pain. Presents today for follow up visit. HGB A1C 6.8% .Patient's blood pressure initially elevated 150/82, repeat b/p below goal. Pateint reports nail fungus on all fingernails of left hand except pinky. Will refer to dermatology. Refills sent on medications. Patient requesting refill on Lidoderm patches for his lumbar back pain, lumbar spine MRI completed on April noting compression on L5 nerve roots bilaterally. Patient was referred to Neurospine for furthure evaluation of this. [facility] Medical History (Updated 06/17/23 @ 11:24 by CHRISTINA Clark) Tubular adenoma of colon Vitamin D deficiency Surgical History No pertinent past surgical history Family History Mother Gangrene Father Diabetes Brother Diabetes Sister Diabetes Housing: Apartment Alcohol intake: current Alcohol intake frequency: holidays/special occasions only Patient Tobacco Use Status: Former Tobacco user Tobacco use type: Cigarette Years Smoked: Quit 6 years ago. e-Cigarette/Vaping Use: Never Used Second Hand Smoke Exposure: No service: No Current occupational status: retired Cognitive needs: No Hearing needs: No Vision needs: Yes (reading glasses) Questionnaire Thrive Questionnaire Date Thrive assessed: 11/11/22 SANDRA-7 AMB Questionnaire SANDRA-7 Date SANDRA - 7 assessed: 11/11/22 Source: Developed by Drs. Palmer Corona, Lucila Samuels, Trevon Francisco and colleagues, with an educational ryder from [employer]. Review of Systems Const Denies chills, Denies fatigue, Denies fever(s) and Denies poor appetite Eyes Denies no additional complaints ENT Reports Normal hearing present Card Denies chest pain, Denies syncope, Denies rapid heart rate and Denies dyspnea Resp Denies cough and Denies dyspnea GI Denies change in stool character, Denies constipation, Denies diarrhea, Denies nausea and Denies vomiting Denies dysuria, Denies urinary frequency and Denies urinary urgency Neuro Reports Normal hearing present, Denies confusion and Denies syncope Psych Denies confusion Endo Denies fatigue Physical exam (Primary Care) Vital Signs: Last Vital Signs Pulse 87 06/17/23 10:57 BP 130/70 06/17/23 11:07 Pulse Ox 97 06/17/23 10:57 Oxygen Delivery Method Room Air 06/17/23 10:57 BMI result Body Mass Index 31.4 Tobacco/Smoking Status: Tobacco use Status Tobacco use date assessed 06/17/23 06/17/23 11:08 Patient Tobacco Use Status Former Tobacco user 06/17/23 10:55 Tobacco use type Cigarette 06/17/23 10:55 e-Cigarette/Vaping Use Never Used 06/17/23 10:55 Thrive Assessment: Date of Thrive Assessment Date Thrive assessed 11/11/22 06/17/23 10:55 Const General: No confusion Orientation/consciousness: No confusion HENMT Head: Yes normocephalic and Yes atraumatic Eyes Conjunctivae: conjunctivae normal Chest Chest palpation & inspection: normal inspection of the chest Resp Effort & Inspection: normal respiratory effort Auscultation: clear to auscultation bilaterally, no crackles, no rhonchi and no wheezes Cardio Rate: regular rate Rhythm: regular rhythm Heart sounds: S1 normal heart sound present and S2 normal heart sound present GI Inspection: Yes normal to inspection Neuro General: No confusion Cranial nerves: Yes Normal hearing present Extrem General: No edema Results AMB Hemoglobin A1c AMB Hemoglobin A1c 6.8 % Last Edit by MELA Arthur on 06/17/23 11:10 Results Reviewed Results Reviewed: Laboratory Last Values Hgb A1c (Clinic) 6.8 % (4.0-6.0) H 06/17/23 10:56 Assessment and Plan Assessment & Plan (1) Hypertension: Code(s): I10 - Essential (primary) hypertension Plan: Continue on amlodipine 5 mg daily and losartan 100 mg daily. Blood pressure below goal today 126/70. Follow low-salt diet and exercise. (2) Type 2 diabetes mellitus: Code(s): E11.9 - Type 2 diabetes mellitus without complications Plan: Continue on metformin. Patient educated to decrease the amount of carbohydrate intake such as pasta, bread, rice and potatoes are all sugar in addition to the sweet stuff. Remember that fruits are good but they also have sugar. (3) Hyperlipidemia: Code(s): E78.5 - Hyperlipidemia, unspecified Plan: Continue atorvastatin 20 mg daily. Avoid fried foods, chicken skin, eggs, butter,margarine, pastries and?? red meat. (4) Onychomycosis: Code(s): B35.1 - Tinea unguium Plan: Referral entered to [facility]. (5) Hypothyroidism: Code(s): E03.9 - Hypothyroidism, unspecified Plan: Continue on levothyroxine 125 mcg daily. (6) Lumbar back pain with radiculopathy affecting left lower extremity: Code(s): M54.16 - Radiculopathy, lumbar region Plan: Lumbar spine MRI completed April MR/MR lumbar spine wo con FINDINGS AND IMPRESSION: The patient attempted the exam and sagittal T2 and sagittal T1 sequences were acquired. However, due to severe discomfort, the examination was subsequently terminated. The lumbar vertebral bodies maintain normal heights. There is grade 1 anterolisthesis of L5 on S1 related to bilateral pars defects. There is moderate disc height loss at L5-S1. There is no significant narrowing of the spinal canal. There is significant neural foraminal stenosis on the right more than left at L5-S1 with compression of both exiting L5 nerve roots. There is no compression of the distal spinal cord. Patient was referred to [facility] Neuro spine for this, has not yet seen them Refill sent on Lidoderm patches. Plan Keep scheduled follow-up in May. Orders: Orders AMB Hemoglobin A1c Today E11.9 - Type 2 diabetes mellitus without complications Comprehensive [place]. Panel Fast Today E11.9 - Type 2 diabetes mellitus without complications, I10 - Essential (primary) hypertension Lipid Panel Today E78.5 - Hyperlipidemia, unspecified Referrals Dermatology Referral B35.1 - Tinea unguium Medications: Refilled lidocaine 5% (Lidoderm) leave on most painful area for up to 12 hrs 1 patch topical DAILY 15 ea 0RF atorvastatin 20 mg PO DAILY 30 tabs 3RF levothyroxine 125 mcg PO DAILY 30 tabs 3RF E03.9 - Hypothyroidism, unspecified losartan 100 mg PO DAILY 30 tabs 3RF metformin 850 mg PO DAILY 30 tabs 3RF amlodipine 5 mg PO DAILY 30 tabs 3RF aspirin 81 mg PO DAILY 30 tabs 3RF fenofibrate micronized 134 mg PO DAILY 30 caps 3RF tamsulosin (Flomax) 0.4 mg PO DAILY 30 caps 3RF Coding Level of Care Code Est Pt Level 4 (99900) Diagnoses Hypertension I10 Type 2 diabetes mellitus E11.9 Hyperlipidemia E78.5 Onychomycosis B35.1 Hypothyroidism E03.9 Lumbar back pain with radiculopathy affecting left lower extremity M54.16
[2023-06-17 10:57] VITALS: BP 150/82; PULSE 87; O2SAT 97; BMI 31.4
[2023-06-17 11:07] VITALS: BP 130/70
== END 2023-06-17 11:28 | disposition home or self-care (01) ==
PROVIDERS: PCP Nurse Practitioner Family; Visit Provider Nurse Practitioner Family
DX: I10 Essential (primary) hypertension (principal); E11.9 Type 2 diabetes mellitus without complications; E78.5 Hyperlipidemia, unspecified; B35.1 Tinea unguium; E03.9 Hypothyroidism, unspecified; M54.16 Radiculopathy, lumbar region
CPT/HCPCS: 83036; 99214

== ENCOUNTER 2023-06-19 08:14 | Outpatient (REF) | payer OTHER, SELFPAY ==
[2023-06-19 09:37] LABS: Alanine Aminotransferase 52 U/L (0-40); Albumin Level 4.4 g/dL (3.5-5.0); Alkaline Phosphatase 37 U/L (39-117); Anion Gap 13 (12-20); Aspartate Amino Transferase 39 U/L (5-37); Bilirubin Total 0.5 mg/dL (0.0-1.0); Blood Urea Nitrogen 8 mg/dL (9-16); Calcium 9.5 mg/dL (8.4-10.2); Carbon Dioxide 29 mmol/L (22-29); Chloride 104 mmol/L (96-108); Cholesterol 153 mg/dL (<200); Estimated Glomerular Filt Rate 60; Glucose Fasting 126 mg/dL (60-99); HDL Cholesterol 41 mg/dL (>40); LDL Cholesterol Calculated 94 mg/dL (<100); Potassium 4.5 mmol/L (3.3-5.1); Sodium 141 mmol/L (135-145); Total Protein 7.1 g/dL (6.5-8.0); Triglycerides 93 mg/dL (<150)
[2023-06-19 09:55] LABS: TSH reflex Free T4 1.09 uIU/mL (0.32-4.0)
== END 2023-06-19 08:15 | disposition home or self-care (01) ==
LOC: HO.LAB 08:14
PROVIDERS: PCP Nurse Practitioner Family; Visit Provider Nurse Practitioner Family
DX: E11.9 Type 2 diabetes mellitus without complications (principal); E03.9 Hypothyroidism, unspecified; E78.5 Hyperlipidemia, unspecified; I10 Essential (primary) hypertension
CPT/HCPCS: 36415; 80053; 80061; 84443

== ENCOUNTER 2023-07-08 09:30 | Day surgery (SDC) | payer OTHER, SELFPAY ==
[2023-07-04 13:42] VITALS: BMI 31.3
--- NOTE | 2023-07-07 13:11 | P.CONAN_ITS ---
Documented by User: Mariam Coffey NP 07/07/23 13:16 HPI - Anesthesia Eval Consult details Narrative: 63yo F for Upper Endoscopy and Colonoscopy PMFSH Active Problems Active Problems: All Active Problems (Updated 07/04/23 @ 13:09 by Darya Swenson RN) Onychomycosis (Acute) Lumbar degenerative disc disease (Acute) Lumbar radiculopathy (Acute) Gastritis (Acute) Screening for colon cancer (Acute) Lumbar back pain with radiculopathy affecting left lower extremity (Acute) Creatinine elevation (Acute) Type 2 diabetes mellitus (Acute) Hypothyroidism (Acute) Hypertension (Acute) Hyperlipidemia (Acute) Vitamin D deficiency (Acute) Past Medical History Medical History GERD (gastroesophageal reflux disease) Lumbar degenerative disc disease Hypothyroid Diabetes Elevated cholesterol HTN (hypertension) Tubular adenoma of colon Vitamin D deficiency Family History Family History Mother Gangrene Father Diabetes Brother Diabetes Sister Diabetes Surgical History Surgical History H/O colonoscopy Social History Social History Housing: Apartment Alcohol intake: current Alcohol intake frequency: holidays/special occasions only Patient Tobacco Use Status: Former Tobacco user Tobacco use type: Cigarette Years Smoked: Quit 6 years ago. e-Cigarette/Vaping Use: Never Used Second Hand Smoke Exposure: No Are you DNR?: No Advance Directives: No Advance Directives Information Provided: Yes Nutrition Risks: No Nutritional Risk service: No Current occupational status: retired Cognitive needs: No Hearing needs: No Vision needs: Yes (reading glasses) Meds Allergies Allergy/AdvReac Type Severity Reaction Status Date / Time No Known Allergies Allergy Verified 07/08/23 10:26 [No Known Allergies*] Home Medications Medication Instructions Recorded Confirmed Last Taken Type pantoprazole 40 mg tablet,delayed 40 mg PO DAILY 06/17/23 07/04/23 Unknown History release Exam Height,Weight and Vital Signs: Height 5 ft 6 in Weight 87.997 kg Pertinent Lab Results Pertinent Lab Results: Laboratory Tests 02/28/23 06/19/23 06/19/23 01:21 08:31 08:31 WBC 6.4 Hgb 13.8 L Hct 41.4 L Plt Count 267 Sodium 141 Potassium 4.5 Chloride 104 Carbon Dioxide 29 BUN 8 L Creatinine 1.22 Narrative Narrative: EKG 2022 Vent. Rate : 097 BPM Atrial Rate : 097 BPM P-R Int : 146 ms QRS Dur : 074 ms QT Int : 328 ms P-R-T Axes : 064 007 047 degrees QTc Int : 416 ms Normal sinus rhythm Normal ECG No previous ECGs available Assessment and Plan Assessment Anesthesia Assessment: Chart Reviewed Documented by User: Almita Teran MD 07/08/23 10:28 [facility] Past Medical History Medical History GERD (gastroesophageal reflux disease) Lumbar degenerative disc disease Hypothyroid Diabetes Elevated cholesterol HTN (hypertension) Tubular adenoma of colon Vitamin D deficiency Family History Family History Mother Gangrene Father Diabetes Brother Diabetes Sister Diabetes Family history of problems with anesthesia: No Surgical History Surgical History H/O colonoscopy History of Problems with Anesthesia: No Social History Social History Housing: Apartment Alcohol intake: current Alcohol intake frequency: holidays/special occasions only Patient Tobacco Use Status: Former Tobacco user Tobacco use type: Cigarette Years Smoked: Quit 6 years ago. e-Cigarette/Vaping Use: Never Used Second Hand Smoke Exposure: No Are you DNR?: No Advance Directives: No Advance Directives Information Provided: Yes Nutrition Risks: No Nutritional Risk service: No Current occupational status: retired Cognitive needs: No Hearing needs: No Vision needs: Yes (reading glasses) Meds Allergies Allergy/AdvReac Type Severity Reaction Status Date / Time No Known Allergies Allergy Verified 07/08/23 10:26 [No Known Allergies*] Home Medications Medication Instructions Recorded Confirmed Last Taken Type pantoprazole 40 mg tablet,delayed 40 mg PO DAILY 06/17/23 07/04/23 Unknown History release Exam Airway Mallampati Class: III TM Dist: <=3cm Neck ROM: Limited Heart: cta Lungs: rrr Assessment and Plan Assessment Anesthesia Assessment: Anesthesia Plan Discussed Final Anesthetic Review Family History of Problems with Anesthesia: No History of Problems with Anesthesia: No NPO: Yes ASA Class: III Final Preanesthetic Review: No Changes in Pt Med Stat, Meds/Allgs Chart Reviewed, Consent Obtained/Reviewed and Anes Risks/Benef Reviewed Patient Risk: Intermediate Procedure Risk: Low Anesthetic Plan Anesthetic Plan: MAC: Disposition: Standard PACU
[2023-07-08 10:19] VITALS: BMI 30.9
[2023-07-08 10:25] VITALS: BP 145/75; PULSE 73; RESP 18; TEMP 36.6; O2SAT 98
[2023-07-08] MEDS: Lactated Ringers 1,000 ML 100 ML IVCONT (10:25)
[2023-07-08 10:41] LABS: Glucose, Whole Blood 117 mg/dL (60-115)
--- NOTE | 2023-07-08 10:50 | MHC.SHP ---
Pre-Procedural Eval Section A Date of Service: 07/08/23 Section B Chief Complaint: gerd,screening Relevant Family History (Specify if Yes): No Relevant Social History: None Present Medications: see Short Stay Collaborative assessment Medical History: Significant History (GERD (gastroesophageal reflux disease) Lumbar degenerative disc disease Hypothyroid Diabetes Elevated cholesterol HTN (hypertension) Tubular adenoma of colon Vitamin D deficiency) History of Previous Operations: Relevant previous surgery/procedure and date(s) (colonoscopy) Allergies: Allergies Allergy/AdvReac Type Severity Reaction Status Date / Time No Known Allergies Allergy Verified 07/08/23 10:26 [No Known Allergies*] Review of Systems Sugical H&P ROS: Negative: Constitution, Cardiovascular, Respiratory, Neurological, Psychiatric, Hem-Onc, Allergic/Immunologic, Gastrointestinal, Genitourinary, Musculoskeletal, Integumentary, Endocrine and Eyes/Ears/Nose/Throat Exam Surgical H&P Exam: Normal: HEENT, Normal: Heart, Normal: Lungs, Normal: Extremities, Normal: Abdomen, Normal: Skin and Normal: Neurological Plan Diagnosis/Plan: Unchanged I have reviewed the history and physical and performed a pertinent physical examination on my patient. No changes have occurred unless specified. Time Spent With Patient Time: Total time managing care of this patient today ____ minutes.
--- NOTE | 2023-07-08 11:25 | W.PM.OPN ---
Operative Note Operative Note Date of Service: 07/08/23 Narrative: Operative Information Procedure Description: EGD, Colonoscopy Indication: GERD, screening Anesthesia: MAC FLEXIBLE TRANSORAL UPPER GASTROINTESTINAL ENDOSCOPY AND COLONOSCOPY PROCEDURE NOTE UPPER ENDOSCOPY Consent: Indications for the procedure and potential complications of bleeding, perforation, reaction to medications and missed diagnosis were discussed with the patient and informed consent was obtained. Instrument: Olympus GIF H 190 J mid size upper endoscope Monitoring: Vital signs and clinical assessment, continuous EKG monitoring, Pulse oximetry, Carbon Dioxide monitoring and blood pressure monitoring were done throughout the procedure. Procedure: The patient was placed in the left lateral decubitis position and pre-procedure medications were administered and a bite block was placed. The endoscope was inserted into the mouth and advanced under direct vision to the third part of duodenum. A careful inspection was made as the upper endoscope was withdrawn including a retroflexed examination of the proximal stomach; Findings and interventions are described below. Findings: Larynx:normal Esophagus: GE junction at 35 cm, diaphragm hiatus at 39 cm, consistent with 4 cm hiatal hernia, seemed fixed. schatzki ring noted and possible tongues of short segment barretts, bx taken from GEJ. Stomach: Patchy erythem and some erosions noted. Biopsies were obtained. Grade 2 flap valve on retroflexed examination of the cardia. Duodenum: Normal bulb and descending duodenum, Intervention: Biopsies as noted above COLONOSCOPY Instrument: Olympus variable stiffness pediatric scope 190L Colonoscopy Monitoring: Vital signs and clinical assessment, continuous EKG monitoring, Pulse oximetry, Carbon Dioxide monitoring and blood pressure monitoring were done throughout the procedure. Colon withdrawal time was 8 minutes. Procedure: The patient was placed in the left lateral decubitis position and pre-procedure medications were administered. After a digital rectal examination of the ano-rectum, the video colonoscope was inserted into the rectum and advanced through the colon to the cecum/TI. The colonoscope was slowly withdrawn in a retrograde panoramic fashion and the colon mucosa was carefully examined including a retroflexed view of the rectum. Findings and interventions are described below. Procedure Difficulty: easy Findings: Terminal Ileum-normal Cecum:normal Ascending Colon: normal Transverse Colon - 8-10 mm sessile polypm removed with cold snare Descending Colon:normal Sigmoid Colon: normal Rectum: Retroflexion with small internal hemorrhoids, grade I Anorectum - normal Colon preparation: [place] Bowel Preparation Scale Right colon; 2 Transverse colon: 3 Left colon; 3 (0 = Unprepared colon segment with mucosa not seen due to solid stool that cannot be cleared. 1 = Portion of mucosa of the colon segment seen, but other areas of the colon segment not well seen due to staining, residual stool and/or opaque liquid. 2 = Minor amount of residual staining, small fragments of stool and/or opaque liquid, but mucosa of colon segment seen well. 3 = Entire mucosa of colon segment seen well with no residual staining, small fragments of stool or opaque liquid) Impression and Post Procedure Diagnosis: Endoscopy Findings: erosive gastritis hiatal hernia schatzki ring possible barretts Colonoscopy Findings: polyp internal hemorrhoids Plan: Await Pathology results Repeat Colonoscopy in 5-7 years if adenomatous polyp, 10 yrs if benign or earlier if clinically indicated High fiber diet leaflet avoid straining at stool, epsom salts and sitz bath, anusol supps or cream Reflux precautions, if ongoing sx then refer for repair of hernia Above findings were reviewed with the patient and relevant handouts were provided if indicated.
[2023-07-08 12:15] VITALS: BP 124/69; PULSE 74; RESP 17; TEMP 36.6; O2SAT 98
[2023-07-08 12:30] VITALS: BP 113/77; PULSE 61; RESP 16; TEMP 36.1; O2SAT 97
== END 2023-07-08 13:48 | disposition home or self-care (01) ==
PROVIDERS: PCP Nurse Practitioner Family; Visit Provider Internal Medicine Gastroenterology
PROC: (CPT 43239; principal; 2023-07-08 12:10)
DX: K29.60 Other gastritis without bleeding (principal); K22.2 Esophageal obstruction; K44.9 Diaphragmatic hernia without obstruction or gangrene; K21.9 Gastro-esophageal reflux disease without esophagitis; Z12.11 Encounter for screening for malignant neoplasm of colon; D12.3 Benign neoplasm of transverse colon; K64.0 First degree hemorrhoids; E11.9 Type 2 diabetes mellitus without complications; I10 Essential (primary) hypertension; E78.5 Hyperlipidemia, unspecified; E55.9 Vitamin D deficiency, unspecified; E66.9 Obesity, unspecified; Z68.31 Body mass index [BMI] 31.0-31.9, adult; Z86.010 Personal history of colon polyps; Z87.891 Personal history of nicotine dependence; Z79.82 Long term (current) use of aspirin; Z79.02 Long term (current) use of antithrombotics/antiplatelets; Z79.84 Long term (current) use of oral hypoglycemic drugs
CPT/HCPCS: 43239; 45385; 82947; 88305; 88342; J1100; J2704

== ENCOUNTER → 2023-07-08 09:30 | Outpatient (BNV) | payer OTHER, SELFPAY | PROVIDERS: PCP Nurse Practitioner Family; Visit Provider Internal Medicine Gastroenterology | DX: Z12.11 Encounter for screening for malignant neoplasm of colon (principal); K21.00 Gastro-esophageal reflux disease with esophagitis, without bleeding; K22.2 Esophageal obstruction; D12.3 Benign neoplasm of transverse colon; K64.0 First degree hemorrhoids | CPT/HCPCS: 43239; 45385 ==

== ENCOUNTER 2023-08-27 09:45 | Outpatient (AMB) | payer OTHER, SELFPAY ==
[2023-08-27 10:19] VITALS: BP 153/66; PULSE 87; TEMP 36; O2SAT 97; BMI 33.3
--- NOTE | 2023-08-27 10:20 | MHC.OFFVISWM ---
Intake VS Expanded 08/27/23 10:19 08/27/23 10:27 BP 153/66 H Blood Pressure Location Rt brachial Blood Pressure Position Sitting Pulse 87 Pulse Source Pulse Oximeter Temp 96.8 F Temperature Source Tympanic Pulse Oximetry 97 Oxygen Delivery Method Room Air Height 5 ft 3.5 in Weight 191 lb BMI 33.3 33.3 Body Fat % 30.9 Body Fat Mass 59.0 Fat Free Mass 131.8 Visceral Fat Rating 18.0 Body Water % 49.1 Body Water Mass 93.6 Muscle Mass/Score 125.2 Basal Metabolic Rate/Score 1,753 Intake Visit Reasons: OV Hernia Repair - Dr. 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 Nowak for a hiatal hernia repair and persistent GERD despite continuous use of Pantoprazole PFSH Medical History GERD (gastroesophageal reflux disease) Lumbar degenerative disc disease Hypothyroid Diabetes Elevated cholesterol HTN (hypertension) Tubular adenoma of colon Vitamin D deficiency Surgical History H/O colonoscopy Family History Mother Gangrene Father Diabetes Brother Diabetes Sister Diabetes Social History Housing: Apartment Alcohol intake: current Alcohol intake frequency: holidays/special occasions only Patient Tobacco Use Status: Former Tobacco user Tobacco use type: Cigarette Years Smoked: Quit 6 years ago. e-Cigarette/Vaping Use: Never Used Second Hand Smoke Exposure: No service: No Current occupational status: retired Cognitive needs: No Hearing needs: No Vision needs: Yes (reading glasses) Physical Exam Vital Signs: Last Vital Signs Temp 96.8 F 08/27/23 10:19 Pulse 87 08/27/23 10:19 BP 153/66 H 08/27/23 10:19 Pulse Ox 97 08/27/23 10:19 Oxygen Delivery Method Room Air 08/27/23 10:19 BMI result Body Mass Index 33.3 GI Inspection: Yes normal to inspection (android body habitus) and Yes obesity Palpation (GI): Soft to palpation Extrem Right lower extremity: normal to inspection Left lower extremity: normal to inspection Assessment & Plan Assessment & Plan (1) Hiatal hernia: Code(s): K44.9 - Diaphragmatic hernia without obstruction or gangrene Plan: 1. We discussed the potential etiology of the hernia that could be of traumatic etiology worsened by his weight. We discussed the details of the diaphragmatic hernia repair and the potential technical challenges such as being able to achieve enough mobilization of the esophagus back in the abdomen and being able to close the diaphragmatic muscle (crura) primarily with sutures. We also discussed the possibility of using a biologic mesh to close the hernia defect if the crura cannot be adequately re-approximated primarily with sutures. We also discussed the option of doing a gastropexy or a fundoplication to prevent postoperative reflux and prevent hernia recurrence. As we discussed, I favor the gastropexy as the fundoplication can cause several distrurbing symptoms such as gas-bloating, flatulence, inability to burp which can be bothersome to patients especially for him with a history of IBS. Also we discussed the complexity of a potential hernia recurrence in association with a hernia recurrence. He was in agreement not to have a fundoplication. 2. Due to his weight and comorbidities, he would benefit from a combined approach addressing the diaphragmatic hernia and his weight concomitantly. Addressing the weight issue, will improve his intra-abdominal pressure and reduce the risk of postoperative residual reflux or hernia recurrence. He was in agreement to proceed with both procedures concomitantly. The patient was agreeable to follow a nutritional plan. 3. Please buy a body composition scale and send me weight measurements weekly. 4. Start Melatonin to improve the difficulty sleeping. 5. Nutritional counseling. Start with 2 CELEBRATE REBUILD protein (buy at hospital[facility] gift shop) shakes (HALF scoop EACH in 8oz low fat unsweetened almond milk each) at 6am-8am and 9am-11am, 1 protein bar (CELEBRATE protein bars, buy at [facility] gift [facility]) at 12pm-2pm, another Celebrate Rebuild protein shake with HALF scoop in almond milk at 3pm-5pm, dinner at 6pm (8 forks of protein and 8 forks of salad/vegetables) AND one more protein bar after dinner at 8pm-10pm. So you do 3 protein shakes, 2.5 protein bars and one meal per day. Orders: Orders CT chest wo IV con Today E11.9 - Type 2 diabetes mellitus without complications, E78.5 - Hyperlipidemia, unspecified, I10 - Essential (primary) hypertension, K44.9 - Diaphragmatic hernia without obstruction or gangrene CA lexiscan stress w toni Today E11.9 - Type 2 diabetes mellitus without complications, E78.5 - Hyperlipidemia, unspecified, I10 - Essential (primary) hypertension, K44.9 - Diaphragmatic hernia without obstruction or gangrene CA echo transthorac w con Today E11.9 - Type 2 diabetes mellitus without complications, E78.5 - Hyperlipidemia, unspecified, I10 - Essential (primary) hypertension, K44.9 - Diaphragmatic hernia without obstruction or gangrene CT abdomen pelvis wo IV con Today E11.9 - Type 2 diabetes mellitus without complications, E78.5 - Hyperlipidemia, unspecified, I10 - Essential (primary) hypertension, K44.9 - Diaphragmatic hernia without obstruction or gangrene Coding Level of Care Code Est Pt Level 4 (45214) Diagnoses Hiatal hernia K44.9 Time Spent (min) 45 Comment With a Green[place]ic speaking interpeter
[2023-08-27 10:27] VITALS: BMI 33.3
== END 2023-08-27 11:59 | disposition home or self-care (01) ==
PROVIDERS: PCP Nurse Practitioner Family; Visit Provider Surgery
DX: K44.9 Diaphragmatic hernia without obstruction or gangrene (principal)
CPT/HCPCS: 99214

== ENCOUNTER → 2023-08-27 09:45 | Outpatient (BNVA) | payer OTHER, SELFPAY | PROVIDERS: PCP Nurse Practitioner Family; Visit Provider Surgery | DX: K44.9 Diaphragmatic hernia without obstruction or gangrene (principal) | CPT/HCPCS: 99212 ==

== ENCOUNTER → 2023-09-30 07:50 | Outpatient (REF) | payer OTHER, SELFPAY ==
--- NOTE | 2023-09-30 | CA_ITS ---
Acquisition Time: 2023-09-30 08:52:58 Total Exercise Time: 00:02:00 Test Indications: Abnormal ECG Medications: ASA AMLODIPINE ATORVASTATIN FENOFIBRATE LEVOTHYROXINE LOSARTAN PANTOPRAZOLE TAMSULOSIN Protocol: LEXISCAN Max HR: 122 BPM 78% of Pred: 155 BPM Max BP: 136/064 mmHG Max Work Load: 1.0 METS Pharmacological stress test with Lexiscan injection while sitting and kicking his legs, without anginal symptoms, without arrhythmais, with normotensive response to injection, with nondiagnostic EKGs. Aminophylline 75mg IVP given to reverse Lexiscan. Nuclear images pending. Test reviewed with Dr. Meyer Referred By: Shane Packer Overread By: Erinn Talley
--- NOTE | ~2023-09-30 | NM_ITS ---
Myocardial perfusion study Indication: Evaluate for myocardial ischemia Technique: The patient was brought in for a Lexiscan perfusion study on 09/30/2023. Patient performed low-level exercise and was injected 0.4 mg of Lexiscan intravenously. Within a minute of injection, 30 mCi of sestamibi was given intravenously. Images were obtained using the SPECT gamma camera interlaced with the gating device. Images were obtained in supine position. Resting perfusion study was performed on 10/02/2023. Patient was administered 30 mCi of sestamibi intravenously at rest. Images were then obtained in supine position. Images obtained with and without CT attenuation. Total DLP 85 mGy-cm Images were processed with the software and compared side to side in short axis, horizontal long axis and vertical long axis views. Findings: The stress perfusion study showed non attenuated images show minimal reduced uptake in the anterior wall and mildly reduced uptake in the apex of the LV myocardium. Attenuation corrected images are somewhat suboptimal with diffuse reduced uptake in multiple segments of LV myocardium. The gated study shows normal LV systolic function with calculated LVEF of 64%. LV cavity is mildly dilated size. The gated study shows normal systolic wall thickening and contraction of segments. Resting study shows nontender images show improved uptake in the apex of the LV myocardium. Gating at rest reveals normal systolic wall motion with ejection fraction at 69%. The findings are consistent with small area of possible reversible defect of the apex suggestive of ischemia.. NM/NM toni perf SPECT rest & str Impression: 1. Myocardial perfusion imaging study shows possible apical ischemia 2. Gated LVEF is 64% 3. Transient ischemic dilatation not present EKG is nondiagnostic for ischemia
== END ==
LOC: HO.CARD 07:50
PROVIDERS: PCP Nurse Practitioner Family; Visit Provider Surgery
DX: K44.9 Diaphragmatic hernia without obstruction or gangrene (principal); E11.9 Type 2 diabetes mellitus without complications; I10 Essential (primary) hypertension
CPT/HCPCS: 78452; 93017; A9500; J0280; J2785; Q9957

== ENCOUNTER → 2023-09-30 08:52 | Outpatient (BNV) | payer OTHER, SELFPAY | PROVIDERS: PCP Nurse Practitioner Family; Visit Provider Nurse Practitioner | DX: K44.9 Diaphragmatic hernia without obstruction or gangrene (principal); I10 Essential (primary) hypertension | CPT/HCPCS: 78452; 93016; 93018; 93306 ==

== ENCOUNTER 2023-10-03 08:45 | Outpatient (REF) | payer OTHER, SELFPAY ==
--- NOTE | 2023-09-30 07:53 | CA_ITS ---
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 Left Ventricle Normal left ventricular size, thickness, and systolic function. The visually estimated ejection fraction is between 60-65%. Spectral Doppler is indicative of a normal filling pattern. Right Ventricle Normal right ventricular cavity size and systolic function. Atria The left atrium is normal in size. Interatrial shunt cannot be excluded. The right atrium was not well visualized. Aortic Valve There is no aortic valve stenosis. There is no aortic valve regurgitation. Mitral Valve Normal mitral valve structure and function. There is trace mitral valve regurgitation. There is no mitral valve stenosis. Pulmonic Valve The pulmonic valve was not well visualized. Tricuspid Valve Likely normal tricuspid valve structure and function. There is trace tricuspid valve regurgitation. The right ventricular systolic pressure is normal. The right ventricular systolic pressure is 22 mmHg. Normal right atrial pressure. There is no evidence of pulmonary hypertension. Great Vessels All visible segments of the aorta are normal in size. The pulmonary artery was not well visualized. There is no dilatation of the ascending aorta measuring 3.10 cm. Venous The inferior vena cava is normal in size and collapses greater than 50% with inspiration. Pericardium/Pleural There is no evidence of pericardial effusion. Prior Study Comparison No prior study available for comparison. Measurements 2D Linear Measurements IVSd: 0.92 0.6-0.9/0.6-1.0 cm LVIDd: 4.66 3.9-5.3/4.2-5.9 cm LVIDd Index: 2.38 2.4-3.2/2.2-3.1 cm/m2 LVIDs: 3.37 2.0-3.6 cm LVPWd: 0.77 0.7-1.1 cm LA Diam: 3.50 2.7-3.8/3.0-4.0 cm LAIDs Index: 1.79 1.5-2.3 cm/m2 LV Mass: 161.30 67-162/88-224 g LV Mass Index: 82.30 43-95/49-115 g/m2 LVOT Diam: 2.00 3.0+(-)1.3 cm 2D Systolic Function EF 4C: 58.40 >55% EF 2C: 61.70 >55% EF BiP: 61.10 >55% Mitral Valve MV Pk E: 0.70 MV PK A: 0.65 MV Decel Time: 213.00 E/A: 1.10 E'Lateral: 9.25 E'Medial: 6.20 E/E' Med: 11.30 E/E' Lat: 7.60 PHT: 62.00 MVA PHT: 3.55 Decel [place]: 3.31 Aortic Valve AoV Pk Matt: 1.32 AoV Mn Matt: 1.01 AoV VTI: 0.30 AoV Pk Grad: 7.00 Aov Mn Grad: 4.00 DELROY Cont.VTI: 2.48 LVOT LVOT Pk Matt: 1.13 LVOT Mn Matt: 0.78 LVOT VTI: 0.23 LVOT Pk Grad: 5.00 LVOT Mn Grad: 3.00 LVOT Diam: 2.00 LVOT Area: 3.14 Diastolic Function MV Pk E: 0.70 MV Pk A: 0.65 E/A: 1.10 E'Medial: 6.20 E/E' Med: 11.30 E' Laterial: 9.25 E/E' Lat: 7.60 Right Ventricle TAPSE (mm): 22.10 TVS' Matt: 10.90 Tricuspid Valve TR Pk Matt: 2.17 TR Pk Grad: 19.00 RA Press: 3.00 RVSP: 22.00 Great Vessels Aorta Sinus of Valsalva: 2.95 2.0-3.5 cm Ao Asc: 3.10 2.1-3.4 cm Ao Arch: 2.80 Updated in Other Vendor System with Status of Final Sunday Meyer MD electronically signed on 10/01/2023 2:59:04 PM with status of Final
--- NOTE | ~2023-10-03 | CT_ITS ---
EXAMINATION: CT CHEST, ABDOMEN AND PELVIS WITHOUT CONTRAST CLINICAL INFORMATION: Diaphragmatic hernia without obstruction or gangrene COMPARISON: None. TECHNIQUE: Multidetector volumetric CT imaging of the chest, abdomen, and pelvis was performed. Axial MIP volume rendering provided. Sagittal and coronal reformatted images were obtained. This CT examination was performed using dose optimization techniques as appropriate, variously including the following: *Automated exposure control *Adjustment of mA and/or kV according to patient size (this includes techniques or standardized protocols for targeted exams where dose is matched to indication/reason for exam; i.e. extremities or head) *Use of iterative reconstruction technique DLP: 716 mGy-cm. FINDINGS: CHEST: LUNGS/PLEURA: 4 mm nodular focus along the lateral margin the right upper lobe (series 5, image 320) 10 mm nodular focus in the lateral aspect of the right lower lobe (series 5, image 331). Nodular thickening along the medial margin of the left major fissure measuring 5 mm and 4 mm respectively (series 5, image 301) potentially representing intrafissural lymph nodes. 2 mm subpleural nodule along the posterior aspect left lower lobe (series 5, image 330). Central airways are patent. No pneumothorax. No large pleural effusion. MEDIASTINUM: Heart is not enlarged. No pericardial effusion. Aorta is nonaneurysmal and demonstrates atherosclerotic calcifications. Main pulmonary artery is not enlarged. No enlarged lymph nodes per size criteria. Visualized portions of the thyroid are unremarkable. AXILLA: No lymphadenopathy. ABDOMEN AND PELVIS: LIVER, GALLBLADDER, AND BILIARY TREE: The liver is normal in size, shape, and attenuation. No focal hepatic lesion or biliary ductal dilatation is present. The gallbladder is unremarkable with no evidence of radiopaque gallstones, gallbladder wall thickening, or obvious pericholecystic inflammatory changes. PANCREAS: Unremarkable. SPLEEN: Unremarkable. ADRENAL GLANDS: Unremarkable. KIDNEYS AND URETERS: The kidneys are normal in size, shape, and attenuation. No hydronephrosis, hydroureter, or calculi seen. No perinephric stranding. BLADDER: Unremarkable. GASTROINTESTINAL TRACT: Small hiatal hernia. Very slight colonic diverticulosis without acute diverticulitis. The small and large bowel are unremarkable. The appendix is unremarkable. ABDOMINAL WALL: Tiny fat filled umbilical hernia. LYMPH NODES: No enlarged lymph nodes per size criteria. VASCULAR: Abdominal aorta is nonaneurysmal. PELVIC VISCERA: Prostate measures 4.7 x 3 mm with coarse calcification along the right lateral margin. OSSEOUS STRUCTURES: Grade 1 anterolisthesis of L5 and S1 with bilateral L5 pars defects. Multilevel degenerative changes of the thoracolumbar and lumbosacral spine. Sclerotic focus in the T12 vertebral body potentially representing a bone island. CT/CT abdomen pelvis wo IV con IMPRESSION: 1. Multiple bilateral pulmonary nodules the largest measuring up to 10 mm in the lateral aspect of the right lower lobe. Follow-up as per Fleischner criteria. 2. Small hiatal hernia. 3. Very slight colonic diverticulosis without acute diverticulitis. 4. Grade 1 anterolisthesis of L5 and S1 with bilateral L5 pars defects. Various management parameters for solitary pulmonary nodules are in the literature. According to the Fleischner Society, recommendations for pulmonary nodules are as follows: According to the UPDATED 2017 Fleischner Society recommendations, the advised follow-up imaging for multiple solid nodules, the largest measuring 6 mm or greater, is: HIGH RISK PATIENT: CT at 3-6 months, then at 18-24 months.
[2023-10-03] MEDS: Barium Sulfate Oral (Vanilla) 450 ML ORAL.SUSP 900 ML PO (13:29)
== END 2023-10-03 08:46 | disposition home or self-care (01) ==
LOC: HO.CT 08:45
PROVIDERS: PCP Nurse Practitioner Family; Visit Provider Surgery
DX: K44.9 Diaphragmatic hernia without obstruction or gangrene (principal); E11.9 Type 2 diabetes mellitus without complications; I10 Essential (primary) hypertension; E78.5 Hyperlipidemia, unspecified
CPT/HCPCS: 71250; 74176; 93017; 93306

== ENCOUNTER 2023-10-10 08:03 | Outpatient (REF) | payer OTHER, SELFPAY ==
[2023-10-10 08:20] LABS: MANUAL DIFF FLAG NO
[2023-10-10 08:54] LABS: Basophils Percent Auto 0.6 % (0-2); Eosinophils Absolute Auto 0.2 X10*3/uL (0.0-0.4); Eosinophils Percent Auto 3.5 % (0-4); Hemoglobin 15.1 g/dl (14.0-18.0); Imm Gran Abs Auto 0.04 X10*3/uL (0.00-0.03); Imm Gran Pct Auto 0.6 % (0.0-0.4); Lymphocytes Absolute Auto 1.4 X10*3/uL (1.2-4.9); Lymphocytes Percent Auto 21.2 % (20-40); Mean Corpuscular HGB Conc 34.3 g/dl (31.0-36.0); Mean Corpuscular Hemoglobin 29.8 pg (27.0-33.0); Mean Platelet Volume 11.5 fL (9.4-12.4); Monocytes Absolute Auto 0.7 X10*3/uL (0.1-1.2); Monocytes Percent Auto 10.7 % (2-11); Neutrophils Absolute Auto 4.2 x10*3/uL (2.0-8.3); Neutrophils Percent Auto 63.4 % (45-73); Platelet Count 266 X10*3/uL (160-400); Red Blood Count 5.06 X10*6/uL (4.60-5.80); Red Cell Distribution Width 11.9 % (11.0-16.0); White Blood Count 6.7 X10*3/uL (4.8-10.8)
[2023-10-10 09:00] LABS: Estimated Average Glucose 117 mg/dL; Hemoglobin A1c % 5.7 % (<6.0)
[2023-10-10 09:11] LABS: Alanine Aminotransferase 24 U/L (0-40); Albumin Level 4.3 g/dL (3.5-5.0); Alkaline Phosphatase 60 U/L (39-117); Anion Gap 12 (12-20); Aspartate Amino Transferase 23 U/L (5-37); Bilirubin Total 0.5 mg/dL (0.0-1.0); Blood Urea Nitrogen 10 mg/dL (9-16); Calcium 9.7 mg/dL (8.4-10.2); Carbon Dioxide 29 mmol/L (22-29); Chloride 102 mmol/L (96-108); Cholesterol 171 mg/dL (<200); Estimated Glomerular Filt Rate > 60; Glucose Random 148 mg/dL (60-115); HDL Cholesterol 46 mg/dL (>40); LDL Cholesterol Calculated 99 mg/dL (<100); Potassium 4.2 mmol/L (3.3-5.1); Sodium 139 mmol/L (135-145); Total Protein 7.4 g/dL (6.5-8.0); Triglycerides 130 mg/dL (<150)
[2023-10-10 09:29] LABS: Prostate Specific Antigen Scr 2.01 ng/mL (<0.05-4.0)
[2023-10-10 09:55] LABS: Creatinine Urine 173.99 mg/dL; Microalbum/Creatinine Ratio Ur 6.3 ug/mg cr (<30)
[2023-10-12 22:28] LABS: TS Negative Control Passed; TS Panel A 0; TS Panel B 3; TS Positive Control Passed; TSpotTB Negative (Negative)
== END 2023-10-10 08:04 | disposition home or self-care (01) ==
LOC: HO.LAB 08:03
PROVIDERS: PCP Internal Medicine; Visit Provider Internal Medicine
DX: Z00.00 Encounter for general adult medical examination without abnormal findings (principal); E03.8 Other specified hypothyroidism; E11.9 Type 2 diabetes mellitus without complications; E78.2 Mixed hyperlipidemia; I10 Essential (primary) hypertension; K44.9 Diaphragmatic hernia without obstruction or gangrene; N40.0 Benign prostatic hyperplasia without lower urinary tract symptoms; Z86.010 Personal history of colon polyps; Z12.5 Encounter for screening for malignant neoplasm of prostate
CPT/HCPCS: 36415; 80053; 80061; 82043; 82570; 83036; 84153; 85025; 86481

== ENCOUNTER 2023-11-07 08:00 | Outpatient (AMB) | payer OTHER, SELFPAY ==
--- NOTE | 2023-11-08 01:21 | MHC.OFFVISWM ---
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*: Details: Start time: 2.41pm, End time: 3.01pm ?I spent 15 minutes speaking with the patient on the phone plus an additional 5 minutes reviewing and updating records for a total of 20 minutes HPI Comments Details: Recent stress test was equivocal and a stress echo was ordered Echo was ok [facility] Medical History GERD (gastroesophageal reflux disease) Lumbar degenerative disc disease Hypothyroid Diabetes Elevated cholesterol HTN (hypertension) Tubular adenoma of colon Vitamin D deficiency Surgical History H/O colonoscopy Family History Mother Gangrene Father Diabetes Brother Diabetes Sister Diabetes Social History Housing: Apartment Alcohol intake: current Alcohol intake frequency: holidays/special occasions only Patient Tobacco Use Status: Former Tobacco user Tobacco use type: Cigarette Years Smoked: Quit 6 years ago. e-Cigarette/Vaping Use: Never Used Second Hand Smoke Exposure: No service: No Current occupational status: retired Cognitive needs: No Hearing needs: No Vision needs: Yes (reading glasses) Telehealth Telehealth Location of provider rendering services: practice address Location of patient: address on file Patient Identification confirmed using: Name, : Yes Telehealth method: voice only Patient verbally consented to treatment: Yes Patient verbally consented to billing insurance company: Yes Patient informed of any privacy concerns related to visit: Yes Minutes spent on Phone/Video with Pt.: 20 Assessment & Plan Assessment & Plan (1) Hiatal hernia: Code(s): K44.9 - Diaphragmatic hernia without obstruction or gangrene Category: Medical Plan: Patient expressed concern about having the surgery. He asked if there any alternative treatments other than surgery. I explained to him that there is no alternative treatment and only surgery would address his problem. I explained to him that the hiatal hernia will always be there unless it is repaired. I did also tell him that although there is no absolute emergency to repair the hernia, it will continue to bother him and worsen over time. The patient chose to wait for now and he does not wish to have surgery. I asked him to reach out to me should he change his mind.
[2023-11-08 01:22] VITALS: BMI 33.1
== END 2023-11-08 01:31 | disposition home or self-care (01) ==
LOC: HO.HBS 08:00
PROVIDERS: PCP Internal Medicine; Visit Provider Surgery
DX: K44.9 Diaphragmatic hernia without obstruction or gangrene (principal)
CPT/HCPCS: 99442

== ENCOUNTER → 2023-11-07 08:00 | Outpatient (BNVA) | payer OTHER, SELFPAY | PROVIDERS: PCP Internal Medicine; Visit Provider Surgery ==

== ENCOUNTER 2023-11-28 11:00 | Outpatient (AMB) | payer OTHER, SELFPAY ==
--- NOTE | 2023-11-28 12:06 | A.SPINEOV_ITS ---
Intake Visit Reasons: 6 months f/up Intake Note: Mr. Camejo is here today for a 6 month F/u. Information And Data Architect Analyst Required: Yes Information And Data Architect Analyst Name: Tablet Allergies No Known Allergies [No Known Allergies*] Allergy (Verified 11/28/23 12:07) Assessment & Plan Assessment & Plan (1) Lumbar radiculopathy: Code(s): M54.16 - Radiculopathy, lumbar region Category: Medical Plan Mr Camejo is back in the office today to review the issues with his back pain going down his left leg. It is still bothering him significantly when he walks, and he has been getting more symptoms than he had last time he saw me. It has not yet at the point where he thinks he wants to undergo surgery but just wanted to check in today has how he has been feeling. He is interested in trying some different medicines, but not sure which wants to take. I reviewed his imaging with him again, he has a MRI done here at [place] only with sagittal cuts. There is an abdominal CT which was done in September which I correlated to the MRI showing the pars defects and the bilateral neural foraminal stenosis. I reviewed the imaging with Dr. Clemente as well. If the gentleman gets to the point of needing surgery probably would be best to do an anterior lumbar interbody fusion as opposed to a trans Kambin because of the disc height. Right now the patient does not wish to consider surgery so we will just follow up with him in 6 months and see how he is doing. Total amount of time spent in this visit was 20 minutes in discussion of symptoms, lumbar MRI and CT imaging results and subsequent plan of care Stephen Clemente MD,PhD [facility] Coding Level of Care Code Est Pt Level 3 (78984) Diagnoses Lumbar radiculopathy M54.16
== END 2023-11-28 12:23 | disposition home or self-care (01) ==
PROVIDERS: PCP Nurse Practitioner Family; Visit Provider Physician Assistant
DX: M54.16 Radiculopathy, lumbar region (principal)
CPT/HCPCS: 99213

== ENCOUNTER → 2023-11-28 11:00 | Outpatient (BNVA) | payer OTHER, SELFPAY | PROVIDERS: PCP Nurse Practitioner Family; Visit Provider Physician Assistant | DX: M54.16 Radiculopathy, lumbar region (principal); M48.00 Spinal stenosis, site unspecified | CPT/HCPCS: 99212 ==

== ENCOUNTER 2024-03-15 14:24 | Outpatient (AMB) | payer OTHER, SELFPAY ==
--- NOTE | 2024-03-15 15:21 | AM.OFFWIN_ITS ---
Intake Vital Signs 03/15/24 15:26 Height 5 ft 3.5 in Weight 190 lb BMI 33.1 BP 130/80 Blood Pressure Location Lt brachial Position Sitting Pulse 79 Pulse Source Pulse Oximeter Pulse Oximetry (%) 97 Oxygen Delivery Method Room Air Intake Visit Reasons: EP- burning and pain when urinating Intake Note: Patient here for burning and pain when urinating which has been present for about 3 days. Patient Tobacco Use Status: Former Tobacco user Allergies No Known Allergies [No Known Allergies*] Allergy (Verified 03/15/24 15:36) Do you need a note to return to daycare/school/sports/work: No HPI EP- burning and pain when urinating HPI Details This note is constructed using voice recognition software. While every effort has been made to ensure accuracy, sluice tender errors may have been included. The patient is a 63 year old male who presents to the clinic today with dysuria. He reports urgency and burning on urination since yesterday. He denies back pain, fever, suprapubic pain, penis discharge. He had a prostate surgery in 2021 and remains on flomax. He denies colicky pain, but does report pain in the tip of the penis with voiding only. [facility] Medical History GERD (gastroesophageal reflux disease) Lumbar degenerative disc disease Hypothyroid Diabetes Elevated cholesterol HTN (hypertension) Tubular adenoma of colon Vitamin D deficiency Surgical History H/O colonoscopy Family History Mother Gangrene Father Diabetes Brother Diabetes Sister Diabetes Social History Housing: Apartment Alcohol intake: current Alcohol intake frequency: holidays/special occasions only Patient Tobacco Use Status: Former Tobacco user Tobacco use type: Cigarette Years Smoked: Quit 6 years ago. e-Cigarette/Vaping Use: Never Used Second Hand Smoke Exposure: No service: No Current occupational status: retired Cognitive needs: No Hearing needs: No Vision needs: Yes (reading glasses) Review of Systems Const All systems reviewed & are unremarkable except as noted in HPI and below Physical Exam Vital Signs: Last Vital Signs Pulse 79 03/15/24 15:26 BP 130/80 03/15/24 15:26 Pulse Ox 97 03/15/24 15:26 Oxygen Delivery Method Room Air 03/15/24 15:26 BMI result Body Mass Index 33.1 Const General: cooperative, healthy appearing, comfortable, no acute distress and alert Orientation/consciousness: patient oriented x3 Limitations: no limitations Resp Effort & Inspection: normal respiratory effort and able to speak in complete sentences Auscultation: clear to auscultation bilaterally Cardio Jugular venous distension: no JVD Palpation: normal PMI Rate: regular rate Heart sounds: S1 normal heart sound present, S2 normal heart sound present, no click, no gallops, no murmurs and no rubs General: Yes no CVA tenderness Back/Spine/Pelvis Back: no CVA tenderness Skin General skin exam: no rashes or lesions noted, elasticity normal and turgor normal Neuro General: patient oriented x3 Psych Appearance: grossly normal Mental Status: mental status grossly normal Speech and movement: Normal speech and movement present Affect: normal affect Results AMB Urinalysis, Automated UA Leukoctes 0 Sally/uL Last Edit by Erika Hughes [facility] on 03/15/24 15:42 UA Nitrite Negative Last Edit by Erika Hughes [facility] on 03/15/24 15:42 UA Urobilinogen 0.2 mg/dL Last Edit by Erika Hughes [facility] on 03/15/24 15:42 UA Protein 0 mg/dL Last Edit by Erika Hughes [facility] on 03/15/24 15:42 UA pH 6.0 Last Edit by Erika Hughes [facility] on 03/15/24 15:42 UA Blood 80 Yeyo/uL Last Edit by Erika Hughes [facility] on 03/15/24 15:42 UA Specific [place] 1.010 Last Edit by Erika Hughes [facility] on 03/15/24 15:42 UA Ketone Negative Last Edit by Erika Hughes [facility] on 03/15/24 15:42 UA Bilirubin 0 mg/dL Last Edit by Erika Hughes [facility] on 03/15/24 15:42 UA Glucose 0 mg/dL Last Edit by OTF Cuellar on 03/15/24 15:42 Assessment & Plan Assessment & Plan (1) UTI (urinary tract infection): Code(s): N39.0 - Urinary tract infection, site not specified Qualifiers: Urinary tract infection type: acute cystitis Hematuria presence: with hematuria Qualified Code(s): N30.01 - Acute cystitis with hematuria Plan: Blood present on urinalysis with questionable UTI results. Treatment with m arobid sent. advised patient to monitor for resolution of symptoms and sudden worsening including colicky pain which would be more consistant with stones over UTI. Advised follow up with failure to resolve. Plan See above for full details and plan. Orders: Orders AMB Urinalysis Automated Today Z13.9 - Encounter for screening, unspecified Medications: New nitrofurantoin monohyd/m-cryst 100 mg must administer with a meal/food 100 mg PO Q12H 5 days 10 caps 0RF Coding Level of Care Code Est Pt Level 3 (10348) Diagnoses Acute cystitis with hematuria N30.01 Urinary tract infection type: acute cystitis Hematuria presence: with hematuria
[2024-03-15 15:26] VITALS: BP 130/80; PULSE 79; O2SAT 97; BMI 33.1
== END 2024-03-15 15:54 | disposition home or self-care (01) ==
PROVIDERS: PCP Nurse Practitioner Family; Visit Provider Registered Nurse
DX: N30.01 Acute cystitis with hematuria (principal); Z13.9 Encounter for screening, unspecified
CPT/HCPCS: 81003; 99213

== ENCOUNTER 2024-03-15 19:59 | Emergency (ER) | payer OTHER, SELFPAY ==
[2024-03-15 20:02] VITALS: BP 128/68; PULSE 88; RESP 16; TEMP 36.8; O2SAT 97; BMI 30.8
--- NOTE | 2024-03-15 20:06 | ED_ITS ---
HPI - General Adult General Chief complaint: Urogenital-Male Stated complaint: ?uti Time Seen by Provider: 03/16/24 01:35 Related Data Home Medications ?Medication ?Instructions ?Recorded ?Confirmed pantoprazole 40 mg tablet,delayed 40 mg PO DAILY 06/17/23 08/27/23 release Previous Rx's ?Medication ?Instructions ?Recorded amlodipine 5 mg tablet 5 mg PO DAILY #30 tabs 06/17/23 atorvastatin 20 mg tablet 20 mg PO DAILY #30 tabs 06/17/23 fenofibrate micronized 134 mg 134 mg PO DAILY #30 caps 06/17/23 capsule levothyroxine 125 mcg tablet 125 mcg PO DAILY #30 tabs 06/17/23 losartan 100 mg tablet 100 mg PO DAILY #30 tabs 06/17/23 metformin 850 mg tablet 850 mg PO DAILY #30 tabs 06/17/23 tamsulosin 0.4 mg capsule (Flomax) 0.4 mg PO DAILY #30 caps 10/06/23 aspirin 81 mg tablet,delayed 81 mg PO DAILY #30 tabs 12/05/23 release nitrofurantoin 100 mg PO Q12H 5 days #10 caps 03/15/24 monohydrate/macrocrystals 100 mg capsule Allergies Allergy/AdvReac Type Severity Reaction Status Date / Time No Known Allergies Allergy Verified 03/15/24 20:05 [No Known Allergies*] [facility] Past Medical History Medical History GERD (gastroesophageal reflux disease) Lumbar degenerative disc disease Hypothyroid Diabetes Elevated cholesterol HTN (hypertension) Tubular adenoma of colon Vitamin D deficiency Surgical History H/O colonoscopy Family History Family History Mother Gangrene Father Diabetes Brother Diabetes Sister Diabetes Social History Social History Housing: Apartment Alcohol intake: current Alcohol intake frequency: holidays/special occasions only Patient Tobacco Use Status: Former Tobacco user Tobacco use type: Cigarette Years Smoked: Quit 6 years ago. Smoked in Last 30 Days: No e-Cigarette/Vaping Use: Never Used Second Hand Smoke Exposure: No Use of substances other than those prescribed or required for medical reasons: No Advance Directives: No Advance Directives Information Provided: No Do you have a plan to hurt others: No Plan service: No Current occupational status: retired Cognitive needs: No Hearing needs: No Vision needs: Yes (reading glasses) Physical Exam ED Vital Signs: Vital Signs - 24 hr 03/15/24 20:02 03/15/24 23:56 03/16/24 03:48 Temperature 98.3 F Pulse Rate 88 74 71 Respiratory Rate 16 17 18 Blood Pressure 128/68 140/82 H 136/71 Pulse Oximetry 97 97 98 Oxygen Delivery Method Room Air Room Air Room Air BMI result Body Mass Index 30.8 Course Course Course Narrative: RME performed by Coretta Pena PA-C. Patient is a 63 year old assigned male at presenting to the emergency department with increased urination and pain with urination. Patient states that he was seen at the clinic today and told he has a UTI, started on Macrobid. Patient states that he continues to have pain and is seeing something in his urine. Detailed physical exam and review of systems are deferred to the residential advisor. Labs ordered. Patient placed back in the waiting room pending room availability and results. Reevaluation(s) Reevaluation #1: 14 icelandic carmichael placed, 500cc drained Time: 03:53 Reevaluation #2: based on the difficulty the problem seems to lie with the urethra Time: 03:54 Medications Administered Discontinued Medications Generic Name Dose Route Start Last Admin Trade Name Freq PRN Reason Stop Dose Admin Lidocaine HCl 10 ml 03/16/24 02:26 03/16/24 02:36 Lidocaine Hcl 2 % Urojet 10 Ml Jel.Pf.Grace TOPICAL 03/16/24 02:27 10 ml ONCE ONE Administration Medical Decision Making Differential Diagnosis Differential Diagnoses: The differential diagnosis associated with the presentation includes (urethral stricture, prostate hypertrophy, urinary obstruction) Admission/Observation Consideration of admission/observation: Escalation of care including admission/observation considered Consult Healthcare Provider Management of the patient was discussed with: Supply Chain Director (Dr. Diego urology) Lab Data 03/15/24 20:19 03/15/24 20:19 Labs: Lab Results 03/15/24 03/16/24 Range/Units 20:19 00:00 WBC 9.2 (4.8-10.8) X10*3/uL RBC 4.50 L (4.60-5.80) X10*6/uL Hgb 13.5 L (14.0-18.0) g/dl Hct 39.2 L (42.0-52.0) % MCV 87.1 (80.0-98.0) fL MCH 30.0 (27.0-33.0) pg MCHC 34.4 (31.0-36.0) g/dl RDW 12.2 (11.0-16.0) % Plt Count 299 (160-400) X10*3/uL MPV 10.6 (9.4-12.4) fL Immature Gran % (Auto) 0.2 (0.0-0.4) % Neut % (Auto) 72.8 (45-73) % Lymph % (Auto) 18.5 L (20-40) % Cedar % (Auto) 7.7 (2-11) % Eos % (Auto) 0.5 (0-4) % Baso % (Auto) 0.3 (0-2) % Lymph # (Auto) 1.7 (1.2-4.9) X10*3/uL Cedar # (Auto) 0.7 (0.1-1.2) X10*3/uL Eos # (Auto) 0.1 (0.0-0.4) X10*3/uL Baso # (Auto) 0.0 (0.0-0.2) X10*3/uL Abs Immat Gran (auto) 0.02 (0.00-0.03) X10*3/uL Absolute Neuts (auto) 6.7 (2.0-8.3) x10*3/uL Absolute Nucleated RBC 0.000 (0.0-0.012) X10*3/uL Nucleated RBC % (auto) 0.0 (0.0-0.2) /100WBC Sodium 140 (135-145) mmol/L Potassium 3.9 (3.3-5.1) mmol/L Chloride 104 (96-108) mmol/L Carbon Dioxide 28 (22-29) mmol/L Anion Gap 12 (12-20) BUN 15 (9-16) mg/dL Creatinine 1.69 H (0.5-1.4) mg/dL Estim Creat Clear Calc 44.9 Estimated GFR 41 Random Glucose 166 H (60-115) mg/dL Calcium 9.5 (8.4-10.2) mg/dL Magnesium 2.2 (1.6-2.6) mg/dL Total Bilirubin 0.5 (0.0-1.0) mg/dL AST 30 (5-37) U/L ALT 34 (0-40) U/L Alkaline Phosphatase 43 (39-117) U/L Total Protein 7.3 (6.5-8.0) g/dL Albumin 4.7 (3.5-5.0) g/dL Urine Color Yellow Urine Appearance Cloudy Urine pH 7.5 (5.0-9.0) Ur Specific [place] 1.020 (1.005-1.025) Urine Protein Trace (Neg-Trace) mg/dL Urine Glucose (UA) Negative (Negative) mg/dL Urine Ketones Trace (Negative) mg/dL Urine Blood Negative (Negative) Urine Nitrite Negative (Negative) Ur Leukocyte Esterase Small (1+) H (Negative) Urine RBC 3-5 H (0-2) /HPF Urine WBC 11-20 H (0-5) /HPF Ur Squamous Epith Cells 6-10 (0-2) /HPF Urine Bacteria None Seen (None Seen) Hyaline Casts 0-2 (0-2) /LPF Independent Interpretation Interpretation: bladder scan showed 400cc Prescription Management I considered prescription management with: Antibiotic (no evidence of UTI found) Chronic Conditions Patient?s care impacted by: Other (prior prostate surgery) Discharge Plan Discharge Clinical Impression: Acute retention of urine, Acute urinary obstruction Patient Disposition: Home, Self-Care Instructions: Urinary Retention in Men (ED), Carmichael Catheter Placement and Care (ED) Prescriptions: No Action tamsulosin [Flomax] 0.4 mg capsule 0.4 mg PO DAILY Qty: 30 3RF aspirin 81 mg tablet,delayed release (DR/EC) 81 mg PO DAILY Qty: 30 3RF pantoprazole 40 mg tablet,delayed release (DR/EC) 40 mg PO DAILY amlodipine 5 mg tablet 5 mg PO DAILY Qty: 30 3RF atorvastatin 20 mg tablet 20 mg PO DAILY Qty: 30 3RF fenofibrate micronized 134 mg capsule 134 mg PO DAILY Qty: 30 3RF levothyroxine 125 mcg tablet 125 mcg PO DAILY Qty: 30 3RF losartan 100 mg tablet 100 mg PO DAILY Qty: 30 3RF metformin 850 mg tablet 850 mg PO DAILY Qty: 30 3RF nitrofurantoin monohyd/m-cryst 100 mg capsule 100 mg PO Q12H 5 Days Qty: 10 0RF Rx Instructions: must administer with a meal/food Referrals: Faisal Diego MD [Physician] - 3 days Print Language: Icelandic
[2024-03-15 20:24] LABS: MANUAL DIFF FLAG NO
[2024-03-15 20:26] LABS: Basophils Percent Auto 0.3 % (0-2); Eosinophils Absolute Auto 0.1 X10*3/uL (0.0-0.4); Eosinophils Percent Auto 0.5 % (0-4); Hematocrit 39.2 % (42.0-52.0); Hemoglobin 13.5 g/dl (14.0-18.0); Imm Gran Abs Auto 0.02 X10*3/uL (0.00-0.03); Imm Gran Pct Auto 0.2 % (0.0-0.4); Lymphocytes Absolute Auto 1.7 X10*3/uL (1.2-4.9); Lymphocytes Percent Auto 18.5 % (20-40); Mean Corpuscular HGB Conc 34.4 g/dl (31.0-36.0); Mean Corpuscular Volume 87.1 fL (80.0-98.0); Mean Platelet Volume 10.6 fL (9.4-12.4); Monocytes Absolute Auto 0.7 X10*3/uL (0.1-1.2); Monocytes Percent Auto 7.7 % (2-11); Neutrophils Absolute Auto 6.7 x10*3/uL (2.0-8.3); Neutrophils Percent Auto 72.8 % (45-73); Platelet Count 299 X10*3/uL (160-400); Red Cell Distribution Width 12.2 % (11.0-16.0); White Blood Count 9.2 X10*3/uL (4.8-10.8)
[2024-03-15 20:42] LABS: Alanine Aminotransferase 34 U/L (0-40); Albumin Level 4.7 g/dL (3.5-5.0); Alkaline Phosphatase 43 U/L (39-117); Anion Gap 12 (12-20); Aspartate Amino Transferase 30 U/L (5-37); Bilirubin Total 0.5 mg/dL (0.0-1.0); Blood Urea Nitrogen 15 mg/dL (9-16); Calcium 9.5 mg/dL (8.4-10.2); Carbon Dioxide 28 mmol/L (22-29); Chloride 104 mmol/L (96-108); Creatinine Clr Calc Pharmacy 44.9; Estimated Glomerular Filt Rate 41; Glucose Random 166 mg/dL (60-115); Magnesium 2.2 mg/dL (1.6-2.6); Potassium 3.9 mmol/L (3.3-5.1); Sodium 140 mmol/L (135-145); Total Protein 7.3 g/dL (6.5-8.0)
[2024-03-15 23:56] VITALS: BP 140/82; PULSE 74; RESP 17; O2SAT 97
[2024-03-16 00:08] LABS: Appearance Urine Cloudy; Color Urine Yellow; Glucose Urine UA Negative (Negative); Leukocyte Esterase Urine Small (1+) (Negative); Nitrite Urine Negative (Negative); PH 7.5 (5.0-9.0); UMIC TRIGGER UACC YES; Urine Blood Negative (Negative); Urine Ketones Trace mg/dL (Negative); Urine Protein Trace mg/dL (Neg-Trace)
[2024-03-16 00:23] LABS: Bacteria Urine None Seen (None Seen); Hyaline Casts Urine 0-2 /LPF (0-2); UACC Culture Trigger YES
--- NOTE | 2024-03-16 01:06 | PC.NURSE ---
Pt ca&ox4, no signs of distress. Pt reports dysuria only. Pt ambulates to restroom with a steady gait. Plan of care ongoing.
[2024-03-16] MEDS: Lidocaine HCl 2 % Urojet 10 ML JEL.PF.APP TOPICAL (02:36)
[2024-03-16 03:48] VITALS: BP 136/71; PULSE 71; RESP 18; O2SAT 98
[2024-03-16 04:10] VITALS: BP 136/71; PULSE 71; RESP 18; TEMP 36.7; O2SAT 98
[2024-03-16 04:12] VITALS: TEMP 36.7
== END 2024-03-16 04:20 | disposition home or self-care (01) ==
PROVIDERS: Physician Assistant Medical; Emergency Provider Emergency Medicine
DX: R33.9 Retention of urine, unspecified (principal); N13.9 Obstructive and reflux uropathy, unspecified; Z79.899 Other long term (current) drug therapy; Z87.891 Personal history of nicotine dependence
CPT/HCPCS: 36415; 51702; 51798; 80053; 81001; 83735; 85025; 87086; 99284; 99285

== ENCOUNTER 2024-04-02 09:39 | Outpatient (AMB) | payer OTHER, SELFPAY ==
--- NOTE | 2024-04-02 10:02 | A.OFFVIS_ITS ---
Intake Visit Reasons: Voiding trial Intake Note: Patient is present for VOIDING TRAIL Urology Medication:TAMSULOSIN Antibiotic Allergy:NONE Blood Thinner:ASPIRIN Jig Grinder Set Up Operator Required: No Allergies No Known Allergies [No Known Allergies*] Allergy (Verified 04/02/24 10:03) HPI Comments Details: Edd is a pleasant male. He is seen for the following urologic conditions. - urinary retention Lower urinary tract symptoms Episode of urinary retention - had thought it may have been part of urinary tract infection however culture negative. On alpha-lyndon Successful voiding trial Three-month follow-up PVR PFSH Medical History GERD (gastroesophageal reflux disease) Lumbar degenerative disc disease Hypothyroid Diabetes Elevated cholesterol HTN (hypertension) Tubular adenoma of colon Vitamin D deficiency Surgical History H/O colonoscopy Family History Mother Gangrene Father Diabetes Brother Diabetes Sister Diabetes Social History Housing: Apartment Alcohol intake: current Alcohol intake frequency: holidays/special occasions only Patient Tobacco Use Status: Former Tobacco user Tobacco use type: Cigarette Years Smoked: Quit 6 years ago. e-Cigarette/Vaping Use: Never Used Second Hand Smoke Exposure: No service: No Current occupational status: retired Cognitive needs: No Hearing needs: No Vision needs: Yes (reading glasses) Review of Systems Const Denies chills and Denies fever(s) Card Reports no additional complaints and Denies syncope Resp Denies cough GI Denies abdominal pain and Denies heartburn Reports as per HPI and Denies change in libido Neuro Denies syncope Psych Denies change in libido Endo Denies change in libido Physical Exam Const General: cooperative, healthy appearing, comfortable and no acute distress Orientation/consciousness: patient oriented x3 HEENT Face and sinus: Yes normal facial exam Mouth: moist mucous membranes Neck Neck: Yes normal visual inspection, Yes full ROM and Yes trachea midline Chest Chest palpation & inspection: normal inspection of the chest Resp Effort & Inspection: normal respiratory effort, able to speak in complete sentences and no respiratory distress GI Inspection: Yes normal to inspection Back/Spine/Pelvis Cervical Spine: normal cervical lordosis Thoracic/Lumbar Spine: thoracic and lumbar spine normal to inspection Skin General skin exam: no rashes or lesions noted Neuro General: patient oriented x3, gait normal, tone normal and moves all extremities Extrem General: Yes normal to inspection and Yes capillary refill normal Office Procedures Bladder/Catheter Procedure Details: Patient presents to office for VT. 120 mls sterile water instilled through catheter, patient tolerated well. Removed 14 fr carmichael catheter, patient t olerated well. Patient able to void approximately 180mls. Bladder scanned for 64 mls. 13684-[id number] of Bladder Procedure code (CPT) selection complete Post Void Residual Post Residual Void Post Void Residual (PVR): 64 [id number] Void Residual by ultrasound Assessment & Plan Assessment & Plan (1) Complicated urinary tract infection: Code(s): N39.0 - Urinary tract infection, site not specified Category: Medical (2) Bladder outlet obstruction: Code(s): N32.0 - Bladder-neck obstruction Category: Medical Plan Remain on tamsulosin Follow-up three-month PVR Orders: Orders AMB Post Void Residual by ultrasound 04/02/24 N39.0 - Urinary tract infection, site not specified US bladder 3 Months N39.0 - Urinary tract infection, site not specified AMB Bladder/Catheter Procedure 04/02/24 N39.0 - Urinary tract infection, site not specified Medications: New tamsulosin 0.4 mg PO BEDTIME 90 days 90 caps 1RF N13.8 - Other obstructive and reflux uropathy, N39.0 - Urinary tract infection, site not specified, N40.1 - Benign prostatic hyperplasia with lower urinary tract symptoms Patient Instructions: Imaging studies, laboratory and physical exam results were discussed and reviewed in detail. No major barriers to patient understanding were identified. An opportunity to ask questions regarding the treatment plan was provided. All questions were answered. The patient expressed understanding and agreement with the above treatment plan. The patient is aware they should contact our office by phone for worsening of their current condition or the appearance of new urologic symptoms. Compliance is encouraged with any medications and followup testing that is ordered. It is a privilege to participate in the urologic care of your patient. If you have any questions or concerns regarding treatment for the above conditions, or other urologic issues, please do not hesitate to contact me. The office telephone contact is [phone]. This note is constructed using voice recognition software. While every effort has been made to ensure accuracy safety officer errors may have been included. Yours sincerely, Dr Faisal Diego MD, [facility] - Urology Providers of Expert, Compassionate Care for the Genitourinary System Coding Level of Care Code New Pt Level 4 (28861) Diagnoses Complicated urinary tract infection N39.0 Bladder outlet obstruction N32.0 CPT Codes Bladder/Catheter Procedure - CPT: 95458-Bnveenjlwu of Bladder ([id number]) Post Residual Void - PVR CPT Code: 23881-Jvae Void Residual by ultrasound ([id number])
== END 2024-04-02 10:57 | disposition home or self-care (01) ==
PROVIDERS: Visit Provider Urology
DX: N39.0 Urinary tract infection, site not specified (principal); N32.0 Bladder-neck obstruction
CPT/HCPCS: 51700; 99204

== ENCOUNTER → 2024-04-02 09:39 | Outpatient (BNVA) | payer OTHER, SELFPAY | PROVIDERS: Visit Provider Urology | DX: N39.0 Urinary tract infection, site not specified (principal); N32.0 Bladder-neck obstruction | CPT/HCPCS: 51700; 51798; 99202 ==

== ENCOUNTER 2024-04-07 07:23 | Outpatient (REF) | payer OTHER, SELFPAY ==
[2024-04-07 09:08] LABS: Alanine Aminotransferase 17 U/L (0-40); Albumin Level 4.4 g/dL (3.5-5.0); Alkaline Phosphatase 36 U/L (39-117); Anion Gap 11 (12-20); Aspartate Amino Transferase 20 U/L (5-37); Bilirubin Total 0.4 mg/dL (0.0-1.0); Blood Urea Nitrogen 12 mg/dL (9-16); Calcium 9.6 mg/dL (8.4-10.2); Carbon Dioxide 30 mmol/L (22-29); Chloride 103 mmol/L (96-108); Cholesterol 145 mg/dL (<200); Estimated Glomerular Filt Rate > 60; Glucose Random 130 mg/dL (60-115); HDL Cholesterol 42 mg/dL (>40); LDL Cholesterol Calculated 82 mg/dL (<100); Potassium 3.7 mmol/L (3.3-5.1); Sodium 140 mmol/L (135-145); Total Protein 7.4 g/dL (6.5-8.0); Triglycerides 108 mg/dL (<150)
[2024-04-07 09:28] LABS: Thyroid Stimulating Hormone 5.61 uIU/mL (0.32-4.0)
== END 2024-04-07 07:24 | disposition home or self-care (01) ==
LOC: HO.LAB 07:23
PROVIDERS: PCP Internal Medicine; Visit Provider Internal Medicine
DX: E03.8 Other specified hypothyroidism (principal); E11.9 Type 2 diabetes mellitus without complications; E78.2 Mixed hyperlipidemia; I10 Essential (primary) hypertension
CPT/HCPCS: 36415; 80053; 80061; 84443

== ENCOUNTER 2024-04-08 12:15 | Outpatient (REF) | payer OTHER, SELFPAY ==
--- NOTE | ~2024-04-08 | US_ITS ---
EXAMINATION: US PELVIS LIMITED (BLADDER) CLINICAL INFORMATION: UTI. COMPARISON: None available. TECHNIQUE: Real-time imaging of the bladder. FINDINGS: BLADDER: Well distended and normal. Bilateral ureteral jets are demonstrated. Prevoid bladder volume is 342 mL. Postvoid bladder volume is 12 mL. Prostate is enlarged with an estimated volume of 54.4 mL US/US bladder IMPRESSION: Prostatomegaly. No significant postvoid residual. Electronically signed by: Laurie Richey MD 04/10/2024 12:20 AM EDT
== END 2024-04-08 12:16 | disposition home or self-care (01) ==
LOC: HO.US 12:15
PROVIDERS: PCP Internal Medicine; Visit Provider Urology
DX: N39.0 Urinary tract infection, site not specified (principal)
CPT/HCPCS: 76857

== ENCOUNTER 2024-05-28 11:14 | Outpatient (AMB) | payer OTHER, SELFPAY ==
--- NOTE | 2024-05-28 11:27 | A.SPINEOV_ITS ---
Intake Visit Reasons: 6 months f/up Intake Note: Mr. Bashir Camejo is here today for a 6month F/u. Broadcast Designer Required: No Allergies No Known Allergies [No Known Allergies*] Allergy (Verified 05/28/24 11:27) Assessment & Plan Assessment & Plan (1) Lumbar degenerative disc disease: Code(s): M51.36 - Other intervertebral disc degeneration, lumbar region Category: Medical Plan Mr Camejo came back in the office today to see us. He is just doing a routine follow-up today. Please see my previous notes for the specifics of his problem. He has been developing a bit more back pain now. It does continue to shoot down his left leg when he is standing and walking. We discussed the nature of the anatomy with the spondylolysis and the foraminal narrowing. Right now, the pain is not at a point where he wants to consider surgery but it is probably getting closer than it was last time he saw 6 months ago. We completely support this decision, and when the time is right in the pain is bad enough certainly we would be happy to help fix the issue at the L5-S1 level. Specifically, Dr. Clemente plan was an L5-S1 anterior lumbar interbody fusion. He can follow-up at this point on an as-needed basis. Total amount of time spent in this visit was 20 minutes in discussion of symptoms, lumbar imaging results and subsequent plan of care Stephen Clemente MD,PhD [facility] Coding Level of Care Code Est Pt Level 3 (70305) Diagnoses Lumbar degenerative disc disease M51.36
== END 2024-05-28 11:38 | disposition home or self-care (01) ==
PROVIDERS: PCP Nurse Practitioner Family; Visit Provider Physician Assistant
DX: M51.369 Other intervertebral disc degeneration, lumbar region without mention of lumbar back pain or lower extremity pain (principal)
CPT/HCPCS: 99213

== ENCOUNTER → 2024-05-28 11:14 | Outpatient (BNVA) | payer OTHER, SELFPAY | PROVIDERS: PCP Nurse Practitioner Family; Visit Provider Physician Assistant | DX: M51.360 Other intervertebral disc degeneration, lumbar region with discogenic back pain only (principal) | CPT/HCPCS: 99212 ==

== ENCOUNTER 2024-06-05 18:35 | Emergency (ER) | payer OTHER, SELFPAY ==
[2024-06-05 19:23] VITALS: BP 129/72; PULSE 105; RESP 18; TEMP 37.2; O2SAT 97; BMI 29.8
--- NOTE | 2024-06-05 19:29 | ED_ITS ---
HPI - Male Genitourinary General Chief complaint: Urogenital-Male Stated complaint: unable to urinate Time Seen by Provider: 06/05/24 22:35 Source: patient Mode of arrival: ambulatory Limitations: no limitations History of Present Illness ED Provider: Dr. Marjorie Carrillo HPI Narrative: Patient comes to the emergency room complaining of urinary retention. Patient states that earlier today he forced himself to urinate, states that a flapping piece of tissue broke off and then he was able to urinate. Patient denies any suprapubic pain. Patient states that earlier today when he could not urinate he called his PCP, prescribed antibiotics and started ciprofloxacin today. Patient denies any flank pain. Related Data Home Medications ?Medication ?Instructions ?Recorded ?Confirmed pantoprazole 40 mg tablet,delayed 40 mg PO DAILY 06/17/23 08/27/23 release Previous Rx's ?Medication ?Instructions ?Recorded amlodipine 5 mg tablet 5 mg PO DAILY #30 tabs 06/17/23 atorvastatin 20 mg tablet 20 mg PO DAILY #30 tabs 06/17/23 fenofibrate micronized 134 mg 134 mg PO DAILY #30 caps 06/17/23 capsule levothyroxine 125 mcg tablet 125 mcg PO DAILY #30 tabs 06/17/23 losartan 100 mg tablet 100 mg PO DAILY #30 tabs 06/17/23 metformin 850 mg tablet 850 mg PO DAILY #30 tabs 06/17/23 tamsulosin 0.4 mg capsule (Flomax) 0.4 mg PO DAILY #30 caps 10/06/23 aspirin 81 mg tablet,delayed 81 mg PO DAILY #30 tabs 12/05/23 release tamsulosin 0.4 mg capsule 0.4 mg PO BEDTIME 90 days #90 caps 04/02/24 ciprofloxacin HCl 500 mg tablet 500 mg PO BID #14 tabs 06/05/24 Allergies Allergy/AdvReac Type Severity Reaction Status Date / Time No Known Allergies Allergy Verified 06/05/24 19:28 [No Known Allergies*] Review of Systems 2 Review of Systems: Constitutional : No Weight loss, No Fever, No Chills, No Night Sweats, No Fatigue, No Malaise ENT/Mouth : No Hearing loss, No Ear Pain, No Nasal Congestion, No Sinus Pain, No Hoarseness, No sore throat, No Rhinorrhea, No Swallowing Difficulty Eyes: No Eye Pain, No Swelling, No Redness, No Foreign Body, No Discharge, No Vision Changes Cardiovascular : No Chest Pain, No SOB, No Dyspnea on Exertion, No Orthopnea, No Edema, No Palpitations Respiratory : No Cough, No Sputum, No Wheezing, No Smoke Exposure, No Dyspnea Gastrointestinal : No Nausea, No Vomiting, No Diarrhea, No Constipation, No abdominal Pain, No Hematochezia, No Melena Genitourinary complaining of intermittent urinary retention. No Dysuria, No Urinary Frequency, No Hematuria, No Urinary Incontinence, No Urgency, No Flank Pain, No Urinary Flow Changes, No Hesitancy Musculoskeletal : No joint pain, No Myalgias, No Joint Swelling Skin : No Skin Lesions, No rash Neuro : No Weakness, No Numbness, No Paresthesias, No Loss of Consciousness, No Dizziness, No Headache Psych : No Anxiety/Panic, No Depression, No SI/HI/AH/VH, No Social Issues, Heme/Lymph: No Bruising, No Bleeding,No Lymphadenopathy Endocrine : No Polyuria, No Polydipsia, No Temperature Intolerance [facility] Past Medical History Medical History GERD (gastroesophageal reflux disease) Lumbar degenerative disc disease Hypothyroid Diabetes Elevated cholesterol HTN (hypertension) Tubular adenoma of colon Vitamin D deficiency Surgical History H/O colonoscopy Family History Family History Mother Gangrene Father Diabetes Brother Diabetes Sister Diabetes Social History Social History Housing: Apartment Alcohol intake: current Alcohol intake frequency: holidays/special occasions only Patient Tobacco Use Status: Former Tobacco user Tobacco use type: Cigarette Years Smoked: Quit 6 years ago. e-Cigarette/Vaping Use: Never Used Second Hand Smoke Exposure: No Advance Directives: No Advance Directives Information Provided: No Do you have a plan to hurt others: No Plan service: No Current occupational status: retired Cognitive needs: No Hearing needs: No Vision needs: Yes (reading glasses) Physical Exam 2 Vital Signs: Vital Signs: Last Vital Signs Temp 99.1 F 06/05/24 22:56 Pulse 95 06/05/24 22:56 Resp 16 06/05/24 22:56 BP 108/49 L 06/05/24 22:56 Pulse Ox 96 06/05/24 22:56 O2 Del Method Room Air 06/05/24 22:56 BMI result Body Mass Index 29.8 Const: Other: Appearance: Alert. Oriented X3. No acute distress. Well-appearing Eyes: Pupils equal, round and reactive to light. ENT: Pharynx normal. Neck: Normal inspection. Neck supple. No lymph nodes noted. No crepitus CVS: Normal heart rate and rhythm. Pulses normal. Normal S1 and S2 Respiratory: No respiratory distress. Breath sounds normal. No Wheezing. No rales Abdomen: Soft and nontender. No rigidity. No distention. No suprapubic distention Skin: Skin warm and dry. Normal skin color. Normal skin turgor. Extremities: No lower extremity edema. No Lacerations. No Rash Neuro: Oriented X 3. No motor deficit. No sensory deficit. Moving all extremities. No slurred speech. CN 2 through 12 grossly intact Psych: calm, cooperative, normal affect Course Course Course Narrative: This is an RME: Additional HPI, ROS, PE not included below will be deferred to primary provider. RME assessment and note performed by: Paz Silver PA-C This is a 64-year-old vietnamese speaking male who presents to the ER with complaints of urinary retention. Reports that yesterday Plan: Labs, UA, Medical Decision Making Medical Decision Making MDM Narrative: My interpretation of labs, normal hematology, normal chemistry. Urine positive for leukocyte esterase and white blood cells, no bacteria. Patient is already on ciprofloxacin. -patient was able to urinate without any difficulty. I discussed with the patient that we could insert a Temple catheter and have him follow-up with Urology early in the week. However, since patient was able to urinate by himself, the other option is that he can go home, if he experiences any further urinary retention, he may return to the emergency room. Patient prefers to go home without a Temple. Patient states that he takes tamsulosin at bedtime Lab Data 06/05/24 20:04 06/05/24 20:04 Labs: Lab Results 06/05/24 06/05/24 Range/Units 20:04 23:22 WBC 9.2 (4.8-10.8) X10*3/uL RBC 4.67 (4.60-5.80) X10*6/uL Hgb 13.8 L (14.0-18.0) g/dl Hct 40.1 L (42.0-52.0) % MCV 85.9 (80.0-98.0) fL MCH 29.6 (27.0-33.0) pg MCHC 34.4 (31.0-36.0) g/dl RDW 11.9 (11.0-16.0) % Plt Count 356 (160-400) X10*3/uL MPV 10.5 (9.4-12.4) fL Immature Gran % (Auto) 0.4 (0.0-0.4) % Neut % (Auto) 71.8 (45-73) % Lymph % (Auto) 17.2 L (20-40) % [place] % (Auto) 8.9 (2-11) % Eos % (Auto) 1.1 (0-4) % Baso % (Auto) 0.6 (0-2) % Lymph # (Auto) 1.6 (1.2-4.9) X10*3/uL [place] # (Auto) 0.8 (0.1-1.2) X10*3/uL Eos # (Auto) 0.1 (0.0-0.4) X10*3/uL Baso # (Auto) 0.1 (0.0-0.2) X10*3/uL Abs Immat Gran (auto) 0.04 H (0.00-0.03) X10*3/uL Absolute Neuts (auto) 6.6 (2.0-8.3) x10*3/uL Absolute Nucleated RBC 0.000 (0.0-0.012) X10*3/uL Nucleated RBC % (auto) 0.0 (0.0-0.2) /100WBC Sodium 138 (135-145) mmol/L Potassium 4.1 (3.3-5.1) mmol/L Chloride 101 (96-108) mmol/L Carbon Dioxide 29 (22-29) mmol/L Anion Gap 12 (12-20) BUN 18 H (9-16) mg/dL Creatinine 1.41 H (0.5-1.4) mg/dL Estim Creat Clear Calc 52.3 Estimated GFR 50 Random Glucose 117 H (60-115) mg/dL Calcium 9.5 (8.4-10.2) mg/dL Total Bilirubin 0.4 (0.0-1.0) mg/dL Direct Bilirubin 0.2 (0.0-0.5) mg/dL AST 28 (5-37) U/L ALT 25 (0-40) U/L Alkaline Phosphatase 38 L (39-117) U/L Troponin I High Sens 4.1 (<3.5-35.0) ng/L Total Protein 7.5 (6.5-8.0) g/dL Albumin 4.6 (3.5-5.0) g/dL Urine Color Yellow Urine Appearance Clear Urine pH 6.5 (5.0-9.0) Ur Specific [place] 1.020 (1.005-1.025) Urine Protein Negative (Neg-Trace) mg/dL Urine Glucose (UA) Negative (Negative) mg/dL Urine Ketones Negative (Negative) mg/dL Urine Blood Negative (Negative) Urine Nitrite Negative (Negative) Ur Leukocyte Esterase Moderate (2+) H (Negative) Urine RBC 0-2 (0-2) /HPF Urine WBC >50 H (0-5) /HPF Ur Squamous Epith Cells 3-5 (0-2) /HPF Urine Bacteria None Seen (None Seen) Hyaline Casts 0-2 (0-2) /LPF Discharge Plan Discharge Clinical Impression: Acute urinary retention Patient Disposition: Home, Self-Care Instructions: Urinary Retention in Men (ED) Additional Instructions: Please follow-up with your primary care physician tomorrow. If you have any worsening or new symptoms, please return to the emergency room or call 911 Prescriptions: No Action tamsulosin [Flomax] 0.4 mg capsule 0.4 mg PO DAILY Qty: 30 3RF aspirin 81 mg tablet,delayed release (DR/EC) 81 mg PO DAILY Qty: 30 3RF ciprofloxacin HCl 500 mg tablet 500 mg PO BID Qty: 14 0RF pantoprazole 40 mg tablet,delayed release (DR/EC) 40 mg PO DAILY amlodipine 5 mg tablet 5 mg PO DAILY Qty: 30 3RF atorvastatin 20 mg tablet 20 mg PO DAILY Qty: 30 3RF fenofibrate micronized 134 mg capsule 134 mg PO DAILY Qty: 30 3RF levothyroxine 125 mcg tablet 125 mcg PO DAILY Qty: 30 3RF losartan 100 mg tablet 100 mg PO DAILY Qty: 30 3RF metformin 850 mg tablet 850 mg PO DAILY Qty: 30 3RF tamsulosin 0.4 mg capsule 0.4 mg PO BEDTIME 90 Days Qty: 90 1RF Print Language: Slovak
[2024-06-05 20:19] LABS: MANUAL DIFF FLAG NO
[2024-06-05 20:20] LABS: Basophils Absolute Auto 0.1 X10*3/uL (0.0-0.2); Basophils Percent Auto 0.6 % (0-2); Eosinophils Absolute Auto 0.1 X10*3/uL (0.0-0.4); Eosinophils Percent Auto 1.1 % (0-4); Hematocrit 40.1 % (42.0-52.0); Hemoglobin 13.8 g/dl (14.0-18.0); Imm Gran Abs Auto 0.04 X10*3/uL (0.00-0.03); Imm Gran Pct Auto 0.4 % (0.0-0.4); Lymphocytes Absolute Auto 1.6 X10*3/uL (1.2-4.9); Lymphocytes Percent Auto 17.2 % (20-40); Mean Corpuscular HGB Conc 34.4 g/dl (31.0-36.0); Mean Corpuscular Hemoglobin 29.6 pg (27.0-33.0); Mean Corpuscular Volume 85.9 fL (80.0-98.0); Mean Platelet Volume 10.5 fL (9.4-12.4); Monocytes Absolute Auto 0.8 X10*3/uL (0.1-1.2); Monocytes Percent Auto 8.9 % (2-11); Neutrophils Absolute Auto 6.6 x10*3/uL (2.0-8.3); Neutrophils Percent Auto 71.8 % (45-73); Platelet Count 356 X10*3/uL (160-400); Red Blood Count 4.67 X10*6/uL (4.60-5.80); Red Cell Distribution Width 11.9 % (11.0-16.0); White Blood Count 9.2 X10*3/uL (4.8-10.8)
[2024-06-05 20:37] LABS: Alanine Aminotransferase 25 U/L (0-40); Albumin Level 4.6 g/dL (3.5-5.0); Alkaline Phosphatase 38 U/L (39-117); Anion Gap 12 (12-20); Aspartate Amino Transferase 28 U/L (5-37); Bilirubin Direct 0.2 mg/dL (0.0-0.5); Bilirubin Total 0.4 mg/dL (0.0-1.0); Blood Urea Nitrogen 18 mg/dL (9-16); Calcium 9.5 mg/dL (8.4-10.2); Carbon Dioxide 29 mmol/L (22-29); Chloride 101 mmol/L (96-108); Creatinine Clr Calc Pharmacy 52.3; Estimated Glomerular Filt Rate 50; Glucose Random 117 mg/dL (60-115); Potassium 4.1 mmol/L (3.3-5.1); Sodium 138 mmol/L (135-145); Total Protein 7.5 g/dL (6.5-8.0)
[2024-06-05 20:44] LABS: Troponin-I High Sensitivity 4.1 ng/L (<3.5-35.0)
[2024-06-05 22:56] VITALS: BP 108/49; PULSE 95; RESP 16; TEMP 37.3; O2SAT 96
--- NOTE | 2024-06-05 23:23 | MHC.EDTECH ---
Patient urine sample collected and sent to lab ,bladder scan done ,vitals taken .
[2024-06-05 23:26] LABS: Appearance Urine Clear; Color Urine Yellow; Glucose Urine UA Negative (Negative); Leukocyte Esterase Urine Moderate (2+) (Negative); Nitrite Urine Negative (Negative); PH 6.5 (5.0-9.0); UMIC TRIGGER UACC YES; Urine Blood Negative (Negative); Urine Ketones Negative (Negative); Urine Protein Negative (Neg-Trace)
[2024-06-05 23:31] LABS: Bacteria Urine None Seen (None Seen); Hyaline Casts Urine 0-2 /LPF (0-2); RBC Urine 0-2 /HPF (0-2); UACC Culture Trigger YES; WBC Urine >50 /HPF (0-5)
[2024-06-06 00:41] VITALS: BP 123/55; PULSE 91; RESP 16; TEMP 36.9; O2SAT 96
[2024-06-06 01:03] VITALS: BP 123/55; PULSE 91; RESP 16; TEMP 36.9; O2SAT 96
== END 2024-06-06 01:04 | disposition home or self-care (01) ==
PROVIDERS: Physician Assistant Medical; Emergency Provider Emergency Medicine; PCP Internal Medicine
DX: R33.9 Retention of urine, unspecified (principal); E11.9 Type 2 diabetes mellitus without complications; I10 Essential (primary) hypertension; E78.5 Hyperlipidemia, unspecified; E03.9 Hypothyroidism, unspecified; Z79.02 Long term (current) use of antithrombotics/antiplatelets; Z79.84 Long term (current) use of oral hypoglycemic drugs; Z79.82 Long term (current) use of aspirin; Z79.899 Other long term (current) drug therapy; Z87.891 Personal history of nicotine dependence
CPT/HCPCS: 36415; 51798; 80048; 80076; 81001; 84484; 85025; 87086; 99284

== ENCOUNTER 2024-06-11 15:19 | Outpatient (AMB) | payer OTHER, SELFPAY ==
--- NOTE | 2024-06-11 15:24 | MHC.OFFVIS ---
Intake Visit Reasons: Urinary retention Intake Note: Patient is present for ER Follow up for Urinary Retention Urology Med: Tamsulosin Antibiotic Allergy: None Blood Thinner: Aspirin Bladder Ultrasound: 04/08/2024 Patient went to [facility] ER on 06/06 for urinary rentention. No catheter was placed patient was able to void while at the ER PVR:35mkl Patient reports that the tip of his penis is very sore states that on Friday the skin on tip of penis had popped and is causing him a lot of burning and pain Head Insulation Board Saw Operator Required: Yes Head Insulation Board Saw Operator Language: Ambulatory Care Services: Head Insulation Board Saw Operator Present Accompanied by: Self / Same As Patient Allergies No Known Allergies [No Known Allergies*] Allergy (Verified 06/11/24 15:31) HPI Comments Details: Edd is a pleasant male. He is seen for the following urologic conditions. - urinary retention Good effect with combination therapy finasteride plus alpha-lyndon Does have recurrent issues with tip of penis Medication provided Follow-up as planned Lower urinary tract symptoms Episode of urinary retention - had thought it may have been part of urinary tract infection however culture negative. On alpha-lyndon Successful voiding trial [facility] Medical History GERD (gastroesophageal reflux disease) Lumbar degenerative disc disease Hypothyroid Diabetes Elevated cholesterol HTN (hypertension) Tubular adenoma of colon Vitamin D deficiency Surgical History H/O colonoscopy Family History Mother Gangrene Father Diabetes Brother Diabetes Sister Diabetes Social History Housing: Apartment Alcohol intake: current Alcohol intake frequency: holidays/special occasions only Patient Tobacco Use Status: Former Tobacco user Tobacco use type: Cigarette Years Smoked: Quit 6 years ago. e-Cigarette/Vaping Use: Never Used Second Hand Smoke Exposure: No service: No Current occupational status: retired Cognitive needs: No Hearing needs: No Vision needs: Yes (reading glasses) Review of Systems Const Denies chills and Denies fever(s) Card Reports no additional complaints and Denies syncope Resp Denies cough GI Denies abdominal pain and Denies heartburn Reports as per HPI and Denies change in libido Neuro Denies syncope Psych Denies change in libido Endo Denies change in libido Physical Exam Const General: cooperative, healthy appearing, comfortable and no acute distress Orientation/consciousness: patient oriented x3 HEENT Face and sinus: Yes normal facial exam Mouth: moist mucous membranes Neck Neck: Yes normal visual inspection, Yes full ROM and Yes trachea midline Chest Chest palpation & inspection: normal inspection of the chest Resp Effort & Inspection: normal respiratory effort, able to speak in complete sentences and no respiratory distress GI Inspection: Yes normal to inspection Back/Spine/Pelvis Cervical Spine: normal cervical lordosis Thoracic/Lumbar Spine: thoracic and lumbar spine normal to inspection Skin General skin exam: no rashes or lesions noted Neuro General: patient oriented x3, gait normal, tone normal and moves all extremities Extrem General: Yes normal to inspection and Yes capillary refill normal Office Procedures Post Void Residual Post Residual Void Post Void Residual (PVR): 35 [id number] Void Residual by ultrasound Assessment & Plan Assessment & Plan (1) Urethral meatal stenosis: Code(s): N35.919 - Unspecified urethral stricture, male, unspecified site Category: Medical Plan Topical therapy Check T for lichen sclerosis Orders: Orders Prostate Specific Antigen 06/11/24 E11.69 - Type 2 diabetes mellitus with other specified complication, N35.919 - Unspecified urethral stricture, male, unspecified site, N52.1 - Erectile dysfunction due to diseases classified elsewhere Testosterone, Free/Total 06/11/24 N35.919 - Unspecified urethral stricture, male, unspecified site, R68.82 - Decreased libido AMB Post Void Residual by ultrasound 06/11/24 N32.0 - Bladder-neck obstruction Medications: New clotrimazole-betamethasone 1-0.05 % Apply thin coat 2 times per day 1 appl topical BID 45 grams 0RF 4 weeks N35.919 - Unspecified urethral stricture, male, unspecified site, N48.1 - Balanitis Patient Instructions: Imaging studies, laboratory and physical exam results were discussed and reviewed in detail. No major barriers to patient understanding were identified. An opportunity to ask questions regarding the treatment plan was provided. All questions were answered. The patient expressed understanding and agreement with the above treatment plan. The patient is aware they should contact our office by phone for worsening of their current condition or the appearance of new urologic symptoms. Compliance is encouraged with any medications and followup testing that is ordered. It is a privilege to participate in the urologic care of your patient. If you have any questions or concerns regarding treatment for the above conditions, or other urologic issues, please do not hesitate to contact me. The office telephone contact is [phone]. This note is constructed using voice recognition software. While every effort has been made to ensure accuracy logistics project manager errors may have been included. Yours sincerely, Dr Faisal Diego MD, [facility] - Urology Providers of Expert, Compassionate Care for the Genitourinary System Coding Level of Care Code Est Pt Level 4 (62554) Diagnoses Urethral meatal stenosis N35.919 CPT Codes Post Residual Void - PVR CPT Code: 34576-Jsdi Void Residual by ultrasound ([id number])
== END 2024-06-11 16:23 | disposition home or self-care (01) ==
PROVIDERS: PCP Internal Medicine; Visit Provider Urology
DX: N35.919 Unspecified urethral stricture, male, unspecified site (principal)
CPT/HCPCS: 99214

== ENCOUNTER → 2024-06-11 15:19 | Outpatient (BNVA) | payer OTHER, SELFPAY | PROVIDERS: PCP Internal Medicine; Visit Provider Urology | DX: R33.9 Retention of urine, unspecified (principal); N35.919 Unspecified urethral stricture, male, unspecified site | CPT/HCPCS: 51798; 99212 ==

== ENCOUNTER 2024-07-02 08:42 | Outpatient (AMB) | payer OTHER, SELFPAY ==
--- NOTE | 2024-07-02 09:00 | MHC.OFFVIS ---
Intake Visit Reasons: 3m/US/PVR Intake Note: Patient is present for 3M/US/PVR Urology Medication:COTRIMAZOLE,TAMSULOSIN Antibiotic Allergy:NONE Blood Thinner:ASPIRIN Last PVR:35ML'S Todays PVR:0ML'S Water Treatment Plant Operator Required: No Allergies No Known Allergies [No Known Allergies*] Allergy (Verified 07/02/24 09:02) HPI Comments Details: Edd is a pleasant male. He is seen for the following urologic conditions. - urinary retention - lichen sclerosis Emptying effective Penile tip with narrowing presumed lichen sclerosis Had stopped using combination topical medication Repeat with just betamethasone Lower urinary tract symptoms Episode of urinary retention - had thought it may have been part of urinary tract infection however culture negative. Prior prostate procedure 2021 Retrograde ejaculation Lichen sclerosis penile tip Prior betamethasone [facility] Medical History GERD (gastroesophageal reflux disease) Lumbar degenerative disc disease Hypothyroid Diabetes Elevated cholesterol HTN (hypertension) Tubular adenoma of colon Vitamin D deficiency Surgical History H/O colonoscopy Family History Mother Gangrene Father Diabetes Brother Diabetes Sister Diabetes Social History Housing: Apartment Alcohol intake: current Alcohol intake frequency: holidays/special occasions only Patient Tobacco Use Status: Former Tobacco user Tobacco use type: Cigarette Years Smoked: Quit 6 years ago. e-Cigarette/Vaping Use: Never Used Second Hand Smoke Exposure: No service: No Current occupational status: retired Cognitive needs: No Hearing needs: No Vision needs: Yes (reading glasses) Review of Systems Const Denies chills and Denies fever(s) Card Reports no additional complaints and Denies syncope Resp Denies cough GI Denies abdominal pain and Denies heartburn Reports as per HPI and Denies change in libido Neuro Denies syncope Psych Denies change in libido Endo Denies change in libido Physical Exam Const General: cooperative, healthy appearing, comfortable and no acute distress Orientation/consciousness: patient oriented x3 HEENT Face and sinus: Yes normal facial exam Mouth: moist mucous membranes Neck Neck: Yes normal visual inspection, Yes full ROM and Yes trachea midline Chest Chest palpation & inspection: normal inspection of the chest Resp Effort & Inspection: normal respiratory effort, able to speak in complete sentences and no respiratory distress GI Inspection: Yes normal to inspection Back/Spine/Pelvis Cervical Spine: normal cervical lordosis Thoracic/Lumbar Spine: thoracic and lumbar spine normal to inspection Skin General skin exam: no rashes or lesions noted Neuro General: patient oriented x3, gait normal, tone normal and moves all extremities Extrem General: Yes normal to inspection and Yes capillary refill normal Office Procedures Post Void Residual Post Residual Void Post Void Residual (PVR): 0 31809-Nitc Void Residual by ultrasound Results AMB Urinalysis, Automated UA Leukoctes 0 Sally/uL Last Edit by OTF Zabala on 07/02/24 09:25 UA Nitrite Negative Last Edit by OTF Zabala on 07/02/24 09:25 UA Urobilinogen 0.2 mg/dL Last Edit by OTF Zabala on 07/02/24 09:25 UA Protein 15 mg/dL Last Edit by OTF Zabala on 07/02/24 09:25 UA pH 6.0 Last Edit by OTF Zabala on 07/02/24 09:25 UA Blood 0 Yeyo/uL Last Edit by OTF Zabala on 07/02/24 09:25 UA Specific [place] 1.030 Last Edit by OTF Zabala on 07/02/24 09:25 UA Ketone Negative Last Edit by OTF Zabala on 07/02/24 09:25 UA Bilirubin 1 mg/dL Last Edit by OTF Zabala on 07/02/24 09:25 UA Glucose 0 mg/dL Last Edit by OTF Zabala on 07/02/24 09:25 Results Reviewed Results Reviewed: Laboratory Last Values Urine pH (Auto) 6.0 07/02/24 09:24 Specific [place] (Auto) 1.030 07/02/24 09:24 Urine Protein (Auto) 15 mg/dL 07/02/24 09:24 Glucose (UA)(Auto) 0 mg/dL 07/02/24 09:24 Urine Ketones (Auto) Negative 07/02/24 09:24 Urine Blood (Auto) 0 Yeyo/uL 07/02/24 09:24 Urine Nitrite (Auto) Negative 07/02/24 09:24 Urine Bilirubin (Auto) 1 mg/dL 07/02/24 09:24 Urine Urobilinogen (Auto) 0.2 mg/dL 07/02/24 09:24 Leukocyte Esterase (Auto) 0 Sally/uL 07/02/24 09:24 Assessment & Plan Assessment & Plan (1) Bladder outlet obstruction: Code(s): N32.0 - Bladder-neck obstruction Category: Medical (2) Urethral meatal stenosis: Code(s): N35.919 - Unspecified urethral stricture, male, unspecified site Category: Medical Plan Six-month follow-up Orders: Orders AMB Urinalysis Automated Today Z13.9 - Encounter for screening, unspecified Prostate Specific Antigen 6 Months N32.0 - Bladder-neck obstruction Testosterone, Total 6 Months N35.919 - Unspecified urethral stricture, male, unspecified site Medications: New betamethasone dipropionate 0.05% Thin coat 2 times per day 1 appl topical BID 15 grams 0RF N35.919 - Unspecified urethral stricture, male, unspecified site, Q55.69 - Other congenital malformation of penis Discontinued tamsulosin (Flomax) Discontinued Reason: Patient Completed Course 0.4 mg PO DAILY 30 caps 3RF clotrimazole-betamethasone 1-0.05 % Apply thin coat 2 times per day Discontinued Reason: Patient Completed Course 1 appl topical BID 4 weeks 45 grams 0RF N35.919 - Unspecified urethral stricture, male, unspecified site, N48.1 - Balanitis Patient Instructions: Imaging studies, laboratory and physical exam results were discussed and reviewed in detail. No major barriers to patient understanding were identified. An opportunity to ask questions regarding the treatment plan was provided. All questions were answered. The patient expressed understanding and agreement with the above treatment plan. The patient is aware they should contact our office by phone for worsening of their current condition or the appearance of new urologic symptoms. Compliance is encouraged with any medications and followup testing that is ordered. It is a privilege to participate in the urologic care of your patient. If you have any questions or concerns regarding treatment for the above conditions, or other urologic issues, please do not hesitate to contact me. The office telephone contact is [phone]. This note is constructed using voice recognition software. While every effort has been made to ensure accuracy dealer development manager errors may have been included. Yours sincerely, Dr Faisal Diego MD, [facility] - Urology Providers of Expert, Compassionate Care for the Genitourinary System Coding Level of Care Code Est Pt Level 4 (55252) Diagnoses Bladder outlet obstruction N32.0 Urethral meatal stenosis N35.919 CPT Codes Post Residual Void - PVR CPT Code: 47673-Pnsa Void Residual by ultrasound ([id number])
== END 2024-07-02 09:34 | disposition home or self-care (01) ==
PROVIDERS: Visit Provider Urology
DX: N32.0 Bladder-neck obstruction (principal); N35.919 Unspecified urethral stricture, male, unspecified site; Z13.9 Encounter for screening, unspecified
CPT/HCPCS: 99214

== ENCOUNTER → 2024-07-02 08:42 | Outpatient (BNVA) | payer OTHER, SELFPAY | PROVIDERS: Visit Provider Urology | DX: N32.0 Bladder-neck obstruction (principal); N35.919 Unspecified urethral stricture, male, unspecified site | CPT/HCPCS: 51798; 81003; 99212 ==

== ENCOUNTER 2024-07-06 08:05 | Outpatient (REF) | payer OTHER, SELFPAY ==
[2024-07-06 11:10] LABS: Estimated Average Glucose 126 mg/dL; Hemoglobin A1C 151.5393 umol/L; Total Hemoglobin (HGBA1C) 3556.9599 umol/L
[2024-07-06 11:18] LABS: Alanine Aminotransferase 36 U/L (0-40); Albumin Level 4.6 g/dL (3.5-5.0); Alkaline Phosphatase 37 U/L (39-117); Anion Gap 10 (12-20); Aspartate Amino Transferase 32 U/L (5-37); Bilirubin Total 0.6 mg/dL (0.0-1.0); Blood Urea Nitrogen 13 mg/dL (9-16); Calcium 9.3 mg/dL (8.4-10.2); Carbon Dioxide 30 mmol/L (22-29); Chloride 101 mmol/L (96-108); Cholesterol 140 mg/dL (<200); Estimated Glomerular Filt Rate 59; Glucose Random 125 mg/dL (60-115); HDL Cholesterol 47 mg/dL (>40); LDL Cholesterol Calculated 73 mg/dL (<100); Sodium 137 mmol/L (135-145); Total Protein 7.3 g/dL (6.5-8.0); Triglycerides 102 mg/dL (<150)
[2024-07-06 11:36] LABS: Thyroid Stimulating Hormone 5.23 uIU/mL (0.32-4.0)
== END 2024-07-06 08:06 | disposition home or self-care (01) ==
LOC: HO.10HDL 08:05
PROVIDERS: Visit Provider Internal Medicine
DX: E03.8 Other specified hypothyroidism (principal); E11.9 Type 2 diabetes mellitus without complications; E78.2 Mixed hyperlipidemia; I10 Essential (primary) hypertension
CPT/HCPCS: 36415; 80053; 80061; 83036; 84443

== ENCOUNTER 2024-09-02 08:28 | Outpatient (REF) | payer OTHER, SELFPAY ==
[2024-09-02 10:50] LABS: Prostate Specific Antigen 1.61 ng/mL (<0.05-4.0)
[2024-09-08 16:32] LABS: Testosterone, Free 70.9 pg/mL (35.0-155.0); Testosterone, Total 510 ng/dL (250-1100)
== END 2024-09-02 08:29 | disposition home or self-care (01) ==
LOC: HO.10HDL 08:28
PROVIDERS: Visit Provider Urology
DX: Z12.5 Encounter for screening for malignant neoplasm of prostate (principal); R68.82 Decreased libido; N52.1 Erectile dysfunction due to diseases classified elsewhere; N35.919 Unspecified urethral stricture, male, unspecified site; E11.69 Type 2 diabetes mellitus with other specified complication
CPT/HCPCS: 36415; 84153; 84402; 84403

== ENCOUNTER 2024-09-09 11:34 | Outpatient (AMB) | payer OTHER, SELFPAY ==
--- NOTE | 2024-09-09 11:38 | MHC.OFFVIS ---
Intake Visit Reasons: PSA/Testo/PVR(Pending) Intake Note: Patient is present for PSA/TESTO/PVR Urology Medication:TAMSULOSIN Antibiotic Allergy:NONE Blood Thinner:ASPIRIN Last PVR:0ML'S Todays PVR:49ML'S Unit Operator Required: No Allergies No Known Allergies [No Known Allergies*] Allergy (Verified 09/09/24 11:39) HPI Comments Details: Edd is a pleasant male. He is seen for the following urologic conditions. - urinary retention - lichen sclerosis Emptying effective Penile tip with continued narrowing presumed lichen sclerosis On examination is tight Would recommend meatal advancement May have been related to ischemia during prior prostate procedure Lower urinary tract symptoms Episode of urinary retention - had thought it may have been part of urinary tract infection however culture negative. Prior prostate procedure 2021 Retrograde ejaculation Lichen sclerosis penile tip Prior betamethasone PFSH Medical History GERD (gastroesophageal reflux disease) Lumbar degenerative disc disease Hypothyroid Diabetes Elevated cholesterol HTN (hypertension) Tubular adenoma of colon Vitamin D deficiency Surgical History H/O colonoscopy Family History Mother Gangrene Father Diabetes Brother Diabetes Sister Diabetes Social History Housing: Apartment Alcohol intake: current Alcohol intake frequency: holidays/special occasions only Patient Tobacco Use Status: Former Tobacco user Tobacco use type: Cigarette Years Smoked: Quit 6 years ago. e-Cigarette/Vaping Use: Never Used Second Hand Smoke Exposure: No service: No Current occupational status: retired Cognitive needs: No Hearing needs: No Vision needs: Yes (reading glasses) Review of Systems Const Denies chills and Denies fever(s) Card Reports no additional complaints and Denies syncope Resp Denies cough GI Denies abdominal pain and Denies heartburn Reports as per HPI and Denies change in libido Neuro Denies syncope Psych Denies change in libido Endo Denies change in libido Physical Exam Const General: cooperative, healthy appearing, comfortable and no acute distress Orientation/consciousness: patient oriented x3 HEENT Face and sinus: Yes normal facial exam Mouth: moist mucous membranes Neck Neck: Yes normal visual inspection, Yes full ROM and Yes trachea midline Chest Chest palpation & inspection: normal inspection of the chest Resp Effort & Inspection: normal respiratory effort, able to speak in complete sentences and no respiratory distress GI Inspection: Yes normal to inspection Back/Spine/Pelvis Cervical Spine: normal cervical lordosis Thoracic/Lumbar Spine: thoracic and lumbar spine normal to inspection Skin General skin exam: no rashes or lesions noted Neuro General: patient oriented x3, gait normal, tone normal and moves all extremities Extrem General: Yes normal to inspection and Yes capillary refill normal Office Procedures Post Void Residual Post Residual Void Post Void Residual (PVR): 49 77451-Uroh Void Residual by ultrasound Results AMB Urinalysis, Automated UA Leukoctes 0 Sally/uL Last Edit by OTF Zabala on 09/09/24 11:52 UA Nitrite Negative Last Edit by Amarilis Peraza CCM on 09/09/24 11:52 UA Urobilinogen 0.2 mg/dL Last Edit by Amarilis Peraza CCM on 09/09/24 11:52 UA Protein 0 mg/dL Last Edit by Amarilis Peraza [facility] on 09/09/24 11:52 UA pH 8.0 Last Edit by Amarilis Peraza [facility] on 09/09/24 11:52 UA Blood 0 Yeyo/uL Last Edit by Amarilis Peraza [facility] on 09/09/24 11:52 UA Specific [place] 1.010 Last Edit by Amarilis Peraza CCM on 09/09/24 11:52 UA Ketone Negative Last Edit by Amarilis Peraza CCM on 09/09/24 11:52 UA Bilirubin 0 mg/dL Last Edit by Amarilis Peraza [facility] on 09/09/24 11:52 UA Glucose 0 mg/dL Last Edit by Amarilis Peraza [facility] on 09/09/24 11:52 Assessment & Plan Assessment & Plan (1) Urethral meatal stenosis: Code(s): N35.919 - Unspecified urethral stricture, male, unspecified site Category: Medical Plan Risks, benefits and alternatives to therapy were discussed. These include but are not limited to infection, bleeding, damage to local organs and tissues, need for further interventions. Anesthetic risks regarding cardiac arrhythmia, blood clots, and potential mortality were discussed. The patient understands the typical recovery time and the outpatient nature of the procedure. After consideration of these risks the patient gives full informed consent and they wish to move ahead with the procedure. Meatotomy - meatal advancement Orders: Orders AMB Urinalysis Automated Today Z13.9 - Encounter for screening, unspecified Patient Instructions: This note is constructed using voice recognition software. While every effort has been made to ensure accuracy plant changer errors may have been included. Imaging studies, laboratory and physical exam results were discussed and reviewed in detail. No major barriers to patient understanding were identified. An opportunity to ask questions regarding the treatment plan was provided. All questions were answered. The patient expressed understanding and agreement with the above treatment plan. The patient is aware they should contact our office by phone for worsening of their current condition or the appearance of new urologic symptoms. Compliance is encouraged with any medications and followup testing that is ordered. It is a privilege to participate in the urologic care of your patient. If you have any questions or concerns regarding treatment for the above conditions, or other urologic issues, please do not hesitate to contact me. The office telephone contact is [phone]. Sincerely, Dr Faisal Diego MD, [facility] - Urology Compassionate Specialist Care for the Genitourinary System Coding Level of Care Code Est Pt Level 4 (98882) Diagnoses Urethral meatal stenosis N35.919 CPT Codes Post Residual Void - PVR CPT Code: 81265-Sbtl Void Residual by ultrasound ([id number])
== END 2024-09-09 11:58 | disposition home or self-care (01) ==
PROVIDERS: Visit Provider Urology
DX: N35.919 Unspecified urethral stricture, male, unspecified site (principal); Z13.9 Encounter for screening, unspecified
CPT/HCPCS: 99214

== ENCOUNTER → 2024-09-09 11:34 | Outpatient (BNVA) | payer OTHER, SELFPAY | PROVIDERS: Visit Provider Urology | DX: N35.919 Unspecified urethral stricture, male, unspecified site (principal) | CPT/HCPCS: 51798; 81003; 99212 ==

== ENCOUNTER 2024-09-30 08:08 | Outpatient (REF) | payer OTHER, SELFPAY ==
[2024-09-30 10:49] LABS: Estimated Average Glucose 131 mg/dL; Hemoglobin A1c % 6.2 % (<6.0)
[2024-09-30 10:58] LABS: Alanine Aminotransferase 38 U/L (0-40); Albumin Level 4.6 g/dL (3.5-5.0); Alkaline Phosphatase 33 U/L (39-117); Anion Gap 15 (12-20); Aspartate Amino Transferase 34 U/L (5-37); Bilirubin Total 0.5 mg/dL (0.0-1.0); Blood Urea Nitrogen 12 mg/dL (9-16); Calcium 9.3 mg/dL (8.4-10.2); Carbon Dioxide 27 mmol/L (22-29); Chloride 103 mmol/L (96-108); Estimated Glomerular Filt Rate > 60; Glucose Random 142 mg/dL (60-115); Sodium 141 mmol/L (135-145); Total Protein 7.6 g/dL (6.5-8.0)
[2024-09-30 11:25] LABS: Creatinine Urine 230.72 mg/dL; Microalbum/Creatinine Ratio Ur 7.8 ug/mg cr (<30)
== END 2024-09-30 08:09 | disposition home or self-care (01) ==
LOC: HO.10HDL 08:08
PROVIDERS: Visit Provider Internal Medicine
DX: B35.1 Tinea unguium (principal); E03.8 Other specified hypothyroidism; E11.9 Type 2 diabetes mellitus without complications; E78.2 Mixed hyperlipidemia; I10 Essential (primary) hypertension
CPT/HCPCS: 36415; 80053; 82043; 82570; 83036; 84443

== ENCOUNTER 2024-11-22 11:53 | Day surgery (SDC) | payer OTHER, SELFPAY ==
[2024-11-22] VITALS (7 sets, daily range): BP systolic 101–132; BP diastolic 62–75; PULSE 71–95; RESP 16–18; TEMP 36.1–36.8; O2SAT 96–98; BMI 30.1
[2024-11-22] MEDS: Lactated Ringers 1,000 ML 80 ML IVCONT (12:47)
[2024-11-22 13:06] LABS: Glucose, Whole Blood 101 mg/dL (60-115)
--- NOTE | 2024-11-22 14:29 | MHC.SHP ---
Pre-Procedural Eval Section A - 24 Hr Update-Section A only Date of Service: 11/22/24 The patient is an INPATIENT: No Changes since office visit: No Cold of Flu in the past 2 weeks, No New Medical Problems, No Changes in Medication and No Patient answered all questions The patient has been examined within 24 hours of the surgical procedure. The History & Physical has been completed within 30 days and I have reviewed it.: Yes Section B - Complete if H&P > 30 days Chief Complaint: Unspecified urethral stricture, male, unspecified Details of Present Illness: Ureteral meatotomy with V-Y advancement Relevant Family History (Specify if Yes): No Relevant Social History: None Present Medications: see Short Stay Collaborative assessment Medical History: No relevant PMH History of Previous Operations: No relevant previous surgery Allergies: Allergies Allergy/AdvReac Type Severity Reaction Status Date / Time No Known Allergies Allergy Verified 11/22/24 13:00 [No Known Allergies*] Review of Systems Sugical H&P ROS: Negative: Constitution, Cardiovascular, Respiratory, Neurological, Psychiatric, Hem-Onc, Allergic/Immunologic, Gastrointestinal, Genitourinary, Musculoskeletal, Integumentary, Endocrine and Eyes/Ears/Nose/Throat Exam Surgical H&P Exam: Normal: HEENT, Normal: Heart, Normal: Lungs, Normal: Extremities, Normal: Abdomen, Normal: Skin and Normal: Neurological Plan Diagnosis/Plan: Unchanged (uretrhal meatotomy with V-Y advancement) I have reviewed the history and physical and performed a pertinent physical examination on my patient. No changes have occurred unless specified. Time Spent With Patient Time: Total time managing care of this patient today ____ minutes.
--- NOTE | 2024-11-22 14:35 | P.CONAN_ITS ---
[facility] Active Problems Active Problems: All Active Problems Urethral meatal stenosis (Acute) Bladder outlet obstruction (Acute) Complicated urinary tract infection (Acute) Abnormal stress test (Acute) Hiatal hernia (Acute) Onychomycosis (Acute) Lumbar degenerative disc disease (Acute) Lumbar radiculopathy (Acute) Gastritis (Acute) Screening for colon cancer (Acute) Lumbar back pain with radiculopathy affecting left lower extremity (Acute) Creatinine elevation (Acute) Type 2 diabetes mellitus (Acute) Hypothyroidism (Acute) Hypertension (Acute) Hyperlipidemia (Acute) Vitamin D deficiency (Acute) Past Medical History Medical History GERD (gastroesophageal reflux disease) Lumbar degenerative disc disease Hypothyroid Diabetes Elevated cholesterol HTN (hypertension) Vitamin D deficiency Family History Family History Mother Gangrene Father Diabetes Brother Diabetes Sister Diabetes Family history of problems with anesthesia: No Surgical History Surgical History History of prostate surgery History of esophagogastroduodenoscopy (EGD) H/O colonoscopy History of Problems with Anesthesia: No Social History Social History Household Members Other:: daughter Housing: Apartment Are you a primary caregiver assisted living to a significant other at home: No Do you presently have visiting nurse or other home services: No Alcohol intake: current Alcohol intake frequency: holidays/special occasions only Patient Tobacco Use Status: Former Tobacco user Tobacco use type: Cigarette Years Smoked: Quit 6 years ago. e-Cigarette/Vaping Use: Never Used Second Hand Smoke Exposure: No Have you been hit, kicked, punched, or otherwise hurt by someone within the past year? If so, by whom?: No Are you DNR?: No Advance Directives: No Advance Directives Information Provided: Yes Poor oral hygiene: No service: No Current occupational status: retired Cognitive needs: No Hearing needs: No Vision needs: Yes (reading glasses) Meds Allergies Allergy/AdvReac Type Severity Reaction Status Date / Time No Known Allergies Allergy Verified 11/22/24 13:00 [No Known Allergies*] Active Medications: Current Medications Lactated Ringer's (Lr) 1,000 mls @ 80 mls/hr IVCONT .[id number] JOJO Last Admin: 11/22/24 12:47 Dose: 80 mls/hr Home Medications ?Medication ?Instructions ?Recorded ?Confirmed ?Last Taken ?Type pantoprazole 40 mg tablet,delayed 40 mg PO DAILY 06/17/23 11/22/24 Unknown H istory release Exam Height,Weight and Vital Signs: Height 5 ft 6 in Weight 84.7 kg Last Vital Signs Temp 98.2 F 11/22/24 12:58 Pulse 71 11/22/24 12:58 Resp 18 11/22/24 12:58 BP 101/62 11/22/24 12:58 Pulse Ox 96 11/22/24 12:58 O2 Del Method Room Air 11/22/24 12:58 Pertinent Lab Results Pertinent Lab Results: Laboratory Tests 11/22/24 12:52 POC Glucose 101 Airway Mallampati Class: III TM Dist: >3cm Neck ROM: Full Heart: rrr Lungs: cta Assessment and Plan Assessment Anesthesia Assessment: Anesthesia Plan Discussed and Chart Reviewed Final Anesthetic Review Family History of Problems with Anesthesia: No History of Problems with Anesthesia: No NPO: Yes ASA Class: III Final Preanesthetic Review: No Changes in Pt Med Stat, Meds/Allgs Chart Reviewed and Consent Obtained/Reviewed Patient Risk: Intermediate Procedure Risk: Low Anesthetic Plan Anesthetic Plan: GA Disposition: Standard PACU
[2024-11-22] MEDS: ceFAZolin Sodium/Dextrose,Iso 2 GM/50 ML PIGGYBACK IV (14:48)
--- NOTE | 2024-11-22 15:25 | P.CONAN_ITS ---
[facility] Active Problems Active Problems: All Active Problems Urethral meatal stenosis (Acute) Bladder outlet obstruction (Acute) Complicated urinary tract infection (Acute) Abnormal stress test (Acute) Hiatal hernia (Acute) Onychomycosis (Acute) Lumbar degenerative disc disease (Acute) Lumbar radiculopathy (Acute) Gastritis (Acute) Screening for colon cancer (Acute) Lumbar back pain with radiculopathy affecting left lower extremity (Acute) Creatinine elevation (Acute) Type 2 diabetes mellitus (Acute) Hypothyroidism (Acute) Hypertension (Acute) Hyperlipidemia (Acute) Vitamin D deficiency (Acute) Past Medical History Medical History GERD (gastroesophageal reflux disease) Lumbar degenerative disc disease Hypothyroid Diabetes Elevated cholesterol HTN (hypertension) Vitamin D deficiency Family History Family History Mother Gangrene Father Diabetes Brother Diabetes Sister Diabetes Family history of problems with anesthesia: No Surgical History Surgical History History of prostate surgery History of esophagogastroduodenoscopy (EGD) H/O colonoscopy History of Problems with Anesthesia: No Social History Social History Household Members Other:: daughter Housing: Apartment Are you a primary ambulatory care coordinator to a significant other at home: No Do you presently have visiting nurse or other home services: No Alcohol intake: current Alcohol intake frequency: holidays/special occasions only Patient Tobacco Use Status: Former Tobacco user Tobacco use type: Cigarette Years Smoked: Quit 6 years ago. e-Cigarette/Vaping Use: Never Used Second Hand Smoke Exposure: No Have you been hit, kicked, punched, or otherwise hurt by someone within the past year? If so, by whom?: No Are you DNR?: No Advance Directives: No Advance Directives Information Provided: Yes Poor oral hygiene: No service: No Current occupational status: retired Cognitive needs: No Hearing needs: No Vision needs: Yes (reading glasses) Meds Allergies Allergy/AdvReac Type Severity Reaction Status Date / Time No Known Allergies Allergy Verified 11/22/24 13:00 [No Known Allergies*] Active Medications: Current Medications Lactated Ringer's (Lr) 1,000 mls @ 80 mls/hr IVCONT .[id number] JOJO Last Admin: 11/22/24 12:47 Dose: 80 mls/hr Home Medications ?Medication ?Instructions ?Recorded ?Confirmed ?Last Taken ?Type pantoprazole 40 mg tablet,delayed 40 mg PO DAILY 06/17/23 11/22/24 Unknown History release Exam Height,Weight and Vital Signs: Height 5 ft 6 in Weight 84.7 kg Last Vital Signs Temp 98.2 F 11/22/24 12:58 Pulse 71 11/22/24 12:58 Resp 18 11/22/24 12:58 BP 101/62 11/22/24 12:58 Pulse Ox 96 11/22/24 12:58 O2 Del Method Room Air 11/22/24 12:58 Pertinent Lab Results Pertinent Lab Results: Laboratory Tests 11/22/24 12:52 POC Glucose 101 Airway Mallampati Class: III TM Dist: >3cm Neck ROM: Full Heart: RRR Lungs: CTA Assessment and Plan Assessment Anesthesia Assessment: Anesthesia Plan Discussed Final Anesthetic Review Family History of Problems with Anesthesia: No History of Problems with Anesthesia: No NPO: Yes ASA Class: III Final Preanesthetic Review: Meds/Allgs Chart Reviewed, Consent Obtained/Reviewed and Anes Risks/Benef Reviewed Patient Risk: Intermediate Procedure Risk: Low Anesthetic Plan Anesthetic Plan: GA Disposition: Standard PACU
--- NOTE | 2024-11-22 15:37 | P.OP_ITS ---
Operative Note Operative Note Date of Service: 11/22/24 Narrative: PreOperative Diagnosis: urethral meatal stenosis Post Operative Diagnosis: urethral meatal stenosis Procedure: Urethral meatotomy with V-Y advancement Surgeon: Dr Faisal Diego Anesthesia: General Indications for procedure: Meatal stenosis presumed secondary to lichen sclerosis Procedure: After informed consent was verified the patient was brought to the operating room and placed in a supine position. Anesthesia was administered per protocol. The patient was prepped and draped in a sterile fashion. Safety pause time-out was performed. Antibiotics being given. Local anesthetic placed at base of penis. Tourniquet using quarter-inch [place] was placed. The urethral meatus was examined. Significant stenosis. A small snap was passed and gently widened in order to define edges of the meatus. Holding sutures with 4-0 chromic were placed at the 09:00 and 15:00 position on the penile glans in order to elevate the meatus. The glans was elevated. Using tenotomy scissors meatotomy was made initially at the 06:00 position followed by the 12 o'clock position. The meatotomy was taken deep enough in order to widen the meatus to accommodate approximately 16-18 American. Six interrupted sutures were placed starting at the 12 o'clock position using 6.0 Vicryl. These were used to elevate the urethral mucosa to the skin edge creating a neomeatus. At this stage puckering is caused by thickness of the glans spongiosis. After the creation of the neomeatus a V-Y advancement was performed to relax puckering. Using an 11 blade an inverted V shaped relieving incision is made with the apex of the V close to the proximal limit of the dorsal meatotomy. The edges were mobilized with sharp dissection. Opposing left and right inner edges were closed with continuous 6 0 Vicryl. Outer layers of the glans epithelium were opposed with interrupted 6 0 Vicryl sutures. The caliber of the final meatus was reviewed and could still accept a 16 American catheter. The stay sutures removed. Antibiotic cream was applied. The patient tolerated the procedure well. He was extubated in operating room and transferred in stable condition to the recovery area. Pathology: Drains:
[2024-11-22] MEDS: Ketorolac Tromethamine 15 MG/ML VIAL IVPUSH (16:09)
== END 2024-11-22 16:58 | disposition home or self-care (01) ==
PROVIDERS: PCP Internal Medicine; Visit Provider Urology
PROC: (CPT 53450; principal; 2024-11-22 14:30)
DX: N35.919 Unspecified urethral stricture, male, unspecified site (principal); N35.811 Other urethral stricture, male, meatal; R33.9 Retention of urine, unspecified; N48.0 Leukoplakia of penis; I10 Essential (primary) hypertension; E11.9 Type 2 diabetes mellitus without complications; E78.00 Pure hypercholesterolemia, unspecified; E55.9 Vitamin D deficiency, unspecified; Z79.899 Other long term (current) drug therapy; Z79.82 Long term (current) use of aspirin; Z79.84 Long term (current) use of oral hypoglycemic drugs; Z98.890 Other specified postprocedural states; Z87.891 Personal history of nicotine dependence
CPT/HCPCS: 53450; 82947; J0131; J0690; J1100; J1885; J2003; J2250; J2405; J2704; J2795; J3010

== ENCOUNTER → 2024-11-22 11:53 | Outpatient (BNV) | payer OTHER, SELFPAY | PROVIDERS: PCP Internal Medicine; Visit Provider Urology | DX: N35.811 Other urethral stricture, male, meatal (principal) | CPT/HCPCS: 53450 ==

== ENCOUNTER 2024-12-03 11:38 | Emergency (ER) | payer OTHER, SELFPAY ==
[2024-12-03 12:16] VITALS: BP 113/55; PULSE 83; RESP 18; TEMP 36.4; O2SAT 96
--- NOTE | 2024-12-03 12:16 | ED_ITS ---
HPI - Male Genitourinary General Chief complaint: Urogenital-Male Stated complaint: unable to urinate Time Seen by Provider: 12/03/24 12:39 Source: patient Mode of arrival: ambulatory Limitations: no limitations History of Present Illness ED Provider: Litzy Victor NP HPI Narrative: Patient is a 64-year-old male presents emergency department for evaluation, on 11/22/2024 he underwent urethral meatotomy with V- Y advancement with Dr. Deigo. He states that he has been able to urinate without difficulty since then. However since yesterday morning he has not been able to void except for very small amounts dribbling amounts, with pain/discomfort during urination. He feels as though the opening at the tip of the penis is starting to close. Denies hematuria, fevers, chills, abdominal pain, nausea, vomiting, back/ flank pain. Related Data Home Medications ?Medication ?Instructions ?Recorded ?Confirmed pantoprazole 40 mg tablet,delayed 40 mg PO DAILY 06/17/23 11/22/24 release Previous Rx's ?Medication ?Instructions ?Recorded amlodipine 5 mg tablet 5 mg PO DAILY #30 tabs 06/17/23 atorvastatin 20 mg tablet 20 mg PO DAILY #30 tabs 06/17/23 fenofibrate micronized 134 mg 134 mg PO DAILY #30 caps 06/17/23 capsule levothyroxine 125 mcg tablet 125 mcg PO DAILY #30 tabs 06/17/23 losartan 100 mg tablet 100 mg PO DAILY #30 tabs 06/17/23 metformin 850 mg tablet 850 mg PO DAILY #30 tabs 06/17/23 aspirin 81 mg tablet,delayed 81 mg PO DAILY #30 tabs 12/05/23 release betamethasone dipropionate 0.05 % 1 appl topical BID #15 grams 07/02/24 topical ointment tamsulosin 0.4 mg capsule 0.4 mg PO BEDTIME 90 days #90 caps 07/02/24 oxycodone-acetaminophen 5 mg-325 1 tab PO Q6H PRN mild pain (scale 11/22/24 mg tablet (Percocet) score 1-4) #8 tabs sulfamethoxazole 400 1 tab PO DAILY #10 tabs 11/22/24 mg-trimethoprim 80 mg tablet (Bactrim) Allergies Allergy/AdvReac Type Severity Reaction Status Date / Time No Known Allergies Allergy Verified 12/03/24 12:17 [No Known Allergies*] Review of Systems 2 Review of Systems: Yes all other systems are reviewed and are negative [facility] Past Medical History Attestation statement: The following information was validated with the patient. Source: old records reviewed Medical History GERD (gastroesophageal reflux disease) Lumbar degenerative disc disease Hypothyroid Diabetes Elevated cholesterol HTN (hypertension) Vitamin D deficiency Surgical History History of prostate surgery History of esophagogastroduodenoscopy (EGD) H/O colonoscopy Family History Family History Mother Gangrene Father Diabetes Brother Diabetes Sister Diabetes Social History Social History Household Members Other:: daughter Housing: Apartment Are you a primary skin care specialist to a significant other at home: No Do you presently have visiting nurse or other home services: No Alcohol intake: current Alcohol intake frequency: holidays/special occasions only Patient Tobacco Use Status: Former Tobacco user Tobacco use type: Cigarette Years Smoked: Quit 6 years ago. Smoked in Last 30 Days: No e-Cigarette/Vaping Use: Never Used Second Hand Smoke Exposure: No Use of substances other than those prescribed or required for medical reasons: No Advance Directives: No Advance Directives Information Provided: Yes Do you have a plan to hurt others: No Plan service: No Current occupational status: retired Cognitive needs: No Hearing needs: No Vision needs: Yes (reading glasses) Physical Exam 2 Vital Signs: Vital Signs: Last Vital Signs Temp 97.7 F 12/03/24 14:16 Pulse 78 12/03/24 14:16 Resp 16 12/03/24 14:16 BP 132/73 12/03/24 14:16 Pulse Ox 97 12/03/24 14:16 O2 Del Method Room Air 12/03/24 14:16 BMI result Body Mass Index 30.0 Appearance: Alert.?Oriented to person, place and time. No acute distress.?Normal affect. Eyes: Pupils equal, round and reactive to light.? ENT: Pharynx normal.?? Neck: Normal inspection.? Neck supple.?? CVS: Heart sounds normal. Normal heart rate and rhythm.? Pulses normal.?? Respiratory: No respiratory distress.? Lung sounds clear to auscultation bilaterally?? Abdomen: Soft and non-tender. Normoactive bowel sounds. Genitourinary: Performed with soda dispenser ED criminalist technician Mark; urethral meatus is overall well-appearing, sutures appear intact, no erythema or warmth, no purulent discharge.?? Skin: Skin warm and dry.? Normal skin color.? ?? Extremities: No lower extremity edema.? Neuro: Moves all extremities spontaneously. Sensation intact bilaterally. Ambulates with normal steady gait. Course Course Course Narrative: This is a Rapid Medical Exam performed in triage by Nidhi Castelan PA-C. Full HPI, ROS and PE to be performed by primary ED provider. 64-year-old Tunisian-speaking male with a past medical history of GERD, hypothyroid, diabetes, HLD, HTN, s/p Urethral meatotomy with V-Y advancement by Dr. Diego on 11/22/24 presenting to the ED c/o decreased UOP since last night & only dripping to urinate this AM. States he noted the hole of penis is closing. +dysuria PE: area not evaluated in triage Plan: UA, bladder scan, Labs Reevaluation(s) Reevaluation #1: nursing staff was unable to place a 16 Chadian Temple catheter. I attempted a 14 Chadian Temple catheter with Uro jet was unsuccessful in being able to pass the urethral meatus. I was able to instill the Uro jet without it pouring outwards. Spoke again with Dr. Diego who will come to bedside to evaluate patient Reevaluation #2: Dr. Diego was able to place Temple catheter at bedside with the use of guidewire. Urinalysis is without evidence of infection. Plan for discharge home and outpatient follow-up. Strict return precautions advised. Medications Administered Discontinued Medications Generic Name Dose Route Start Last Admin Trade Name Freq PRN Reason Stop Dose Admin Lidocaine HCl 10 ml 12/03/24 14:42 12/03/24 15:36 Lidocaine Hcl 2 % Urojet 10 Ml Jel.Pf.Grace TOPICAL 12/03/24 14:43 10 ml ONCE ONE Administration Lidocaine HCl 10 ml 12/03/24 15:25 12/03/24 15:47 Lidocaine Hcl 2 % Urojet 10 Ml Jel.Pf.Grace TOPICAL 12/03/24 15:26 10 ml ONCE ONE Administration Medical Decision Making Medical Decision Making [facility] Narrative: patient is a 64-year-old male with past medical history of GERD, hypothyroid, diabetes, HLD, HTN, s/p Urethral meatotomy with V-Y advancement by Dr. Diego on 11/22/24 presenting with reported decrease in urinary output and dysuria since yesterday as per HPI. Overall he is well-appearing, nontoxic, afebrile. Has a benign abdominal examination. No CVA tenderness. Urogenital examination appears overall benign, sutures are intact at the urethral meatus, there is no swelling erythema warmth or purulent discharge. At the time of initial evaluation he had a bladder scan revealing 269 mL, states that he was able to void a small amount in the restroom, unfortunately did not make staff aware of this and therefore urinalysis was not obtained at this time, however repeat PVR bladder scan Revealing 300 mL, will consult with urology Differential Diagnosis Differential Diagnoses: The differential diagnosis associated with the presentation includes ( urinary retention, urethral stricture/ stenosis, urinary tract infection) Admission/Observation Consideration of admission/observation: Escalation of care including admission/observation considered Consult Healthcare Provider Management of the patient was discussed with: Behavioral Scientist urology, Dr. Diego; advises placement of 16 Chadian Temple catheter, initiating Flomax and outpatient follow-up with Urology Lab Data [facility] Lab Attestation statement: I reviewed the patient's lab results. 12/03/24 14:03 12/03/24 14:03 Labs: Lab Results 12/03/24 12/03/24 Range/Units 14:03 16:37 WBC 7.4 (4.8-10.8) X10*3/uL RBC 4.46 L (4.60-5.80) X10*6/uL Hgb 13.3 L (14.0-18.0) g/dl Hct 38.2 L (42.0-52.0) % MCV 85.7 (80.0-98.0) fL MCH 29.8 (27.0-33.0) pg MCHC 34.8 (31.0-36.0) g/dl RDW 11.9 (11.0-16.0) % Plt Count 271 (160-400) X10*3/uL MPV 11.0 (9.4-12.4) fL Immature Gran % (Auto) 0.4 (0.0-0.4) % Neut % (Auto) 69.5 (45-73) % Lymph % (Auto) 19.4 L (20-40) % Granite % (Auto) 8.9 (2-11) % Eos % (Auto) 1.3 (0-4) % Baso % (Auto) 0.5 (0-2) % Lymph # (Auto) 1.4 (1.2-4.9) X10*3/uL Granite # (Auto) 0.7 (0.1-1.2) X10*3/uL Eos # (Auto) 0.1 (0.0-0.4) X10*3/uL Baso # (Auto) 0.0 (0.0-0.2) X10*3/uL Abs Immat Gran (auto) 0.03 (0.00-0.03) X10*3/uL Absolute Neuts (auto) 5.2 (2.0-8.3) x10*3/uL Absolute Nucleated RBC 0.000 (0.0-0.012) X10*3/uL Nucleated RBC % (auto) 0.0 (0.0-0.2) /100WBC Sodium 140 (135-145) mmol/L Potassium 3.9 (3.3-5.1) mmol/L Chloride 103 (96-108) mmol/L Carbon Dioxide 28 (22-29) mmol/L Anion Gap 13 (12-20) BUN 14 (9-16) mg/dL Creatinine 1.13 (0.5-1.4) mg/dL Estim Creat Clear Calc 65.5 Estimated GFR > 60 Random Glucose 154 H (60-115) mg/dL Calcium 9.6 (8.4-10.2) mg/dL Urine Color Yellow Urine Appearance Clear Urine pH 6.0 (5.0-9.0) Ur Specific [place] 1.015 (1.005-1.025) Urine Protein Negative (Neg-Trace) mg/dL Urine Glucose (UA) Negative (Negative) mg/dL Urine Ketones Trace (Negative) mg/dL Urine Blood Negative (Negative) Urine Nitrite Negative (Negative) Ur Leukocyte Esterase Negative (Negative) External Record Review External record reviewed: Outpatient record Chronic Conditions Patient?s care impacted by: Other ( see narrative above) Discharge Plan Discharge Clinical Impression: Acute urinary retention Patient Disposition: Home, Self-Care Instructions: Temple Catheter Placement and Care (ED) Additional Instructions: Temple catheter was placed while in the emergency department, as discussed you should receive a call from the urology office on Friday or Friday to schedule a sooner outpatient follow-up appointment. If you do not hear from them by Friday please contact their office directly. Prescriptions: No Action aspirin 81 mg tablet,delayed release (DR/EC) 81 mg PO DAILY Qty: 30 3RF sulfamethoxazole-trimethoprim [Bactrim] 400-80 mg tablet 1 tab PO DAILY Qty: 10 0RF oxycodone-acetaminophen [Percocet] 5-325 mg tablet 1 tab PO Q6H PRN (Reason: mild pain (scale score 1-4)) Qty: 8 0RF Rx Instructions: Partial Fill upon patient request. pantoprazole 40 mg tablet,delayed release (DR/EC) 40 mg PO DAILY amlodipine 5 mg tablet 5 mg PO DAILY Qty: 30 3RF atorvastatin 20 mg tablet 20 mg PO DAILY Qty: 30 3RF fenofibrate micronized 134 mg capsule 134 mg PO DAILY Qty: 30 3RF levothyroxine 125 mcg tablet 125 mcg PO DAILY Qty: 30 3RF losartan 100 mg tablet 100 mg PO DAILY Qty: 30 3RF metformin 850 mg tablet 850 mg PO DAILY Qty: 30 3RF tamsulosin 0.4 mg capsule 0.4 mg PO BEDTIME 90 Days Qty: 90 1RF betamethasone dipropionate 0.05 % ointment 1 appl topical BID Qty: 15 0RF Rx Instructions: Thin coat 2 times per day Referrals: Faisal Diego MD [Physician] - Print Language: Tunisian
--- NOTE | 2024-12-03 13:45 | PC.NURSE ---
Informed PA of pt's bladder scan of 300 ml.
[2024-12-03 14:10] LABS: MANUAL DIFF FLAG NO
[2024-12-03 14:15] LABS: Basophils Percent Auto 0.5 % (0-2); Eosinophils Absolute Auto 0.1 X10*3/uL (0.0-0.4); Eosinophils Percent Auto 1.3 % (0-4); Hematocrit 38.2 % (42.0-52.0); Hemoglobin 13.3 g/dl (14.0-18.0); Imm Gran Abs Auto 0.03 X10*3/uL (0.00-0.03); Imm Gran Pct Auto 0.4 % (0.0-0.4); Lymphocytes Absolute Auto 1.4 X10*3/uL (1.2-4.9); Lymphocytes Percent Auto 19.4 % (20-40); Mean Corpuscular HGB Conc 34.8 g/dl (31.0-36.0); Mean Corpuscular Hemoglobin 29.8 pg (27.0-33.0); Mean Corpuscular Volume 85.7 fL (80.0-98.0); Monocytes Absolute Auto 0.7 X10*3/uL (0.1-1.2); Monocytes Percent Auto 8.9 % (2-11); Neutrophils Absolute Auto 5.2 x10*3/uL (2.0-8.3); Neutrophils Percent Auto 69.5 % (45-73); Platelet Count 271 X10*3/uL (160-400); Red Blood Count 4.46 X10*6/uL (4.60-5.80); Red Cell Distribution Width 11.9 % (11.0-16.0); White Blood Count 7.4 X10*3/uL (4.8-10.8)
[2024-12-03 14:16] VITALS: BP 132/73; PULSE 78; RESP 16; TEMP 36.5; O2SAT 97
[2024-12-03 14:27] LABS: Anion Gap 13 (12-20); Blood Urea Nitrogen 14 mg/dL (9-16); Calcium 9.6 mg/dL (8.4-10.2); Carbon Dioxide 28 mmol/L (22-29); Chloride 103 mmol/L (96-108); Creatinine Clr Calc Pharmacy 65.5; Estimated Glomerular Filt Rate > 60; Glucose Random 154 mg/dL (60-115); Potassium 3.9 mmol/L (3.3-5.1); Sodium 140 mmol/L (135-145)
[2024-12-03] MEDS: Lidocaine HCl 2 % Urojet 10 ML JEL.PF.APP TOPICAL ×2 (15:36→15:47)
--- NOTE | 2024-12-03 15:55 | MHC.EDTECH ---
I helped the doctor put the Temple Cath in, urine took out 500mL , Patient tolerated very well, he resting quietly in his bed , call guido within his reach.
[2024-12-03 16:48] LABS: Appearance Urine Clear; Color Urine Yellow; Glucose Urine UA Negative (Negative); Leukocyte Esterase Urine Negative (Negative); Nitrite Urine Negative (Negative); Specific Gravity - Urine 1.015 (1.005-1.025); Urine Blood Negative (Negative); Urine Ketones Trace mg/dL (Negative); Urine Protein Negative (Neg-Trace)
[2024-12-03 17:14] VITALS: BP 135/75; PULSE 79; RESP 16; TEMP 36.6; O2SAT 96
--- NOTE | 2024-12-03 17:14 | PC.NURSE ---
Per MD Green, leg bag applied. Pt. educated on leg bag.
--- NOTE | 2024-12-03 17:15 | PC.NURSE ---
leg bag provided to pt- in addition to overnight drainage bag- pt verbalizes understanding
== END 2024-12-03 17:16 | disposition home or self-care (01) ==
PROVIDERS: Nurse Practitioner Family; Physician Assistant; Emergency Provider Emergency Medicine Emergency Medical Services; PCP Internal Medicine
DX: R33.9 Retention of urine, unspecified (principal); Z79.899 Other long term (current) drug therapy
CPT/HCPCS: 36415; 51702; 51798; 80048; 81003; 85025; 99284; 99285

== ENCOUNTER 2024-12-23 10:42 | Outpatient (AMB) | payer OTHER, SELFPAY ==
--- NOTE | 2024-12-23 10:50 | A.OFFVIS_ITS ---
Intake Visit Reasons: Urethral Meatotomy F/U Intake Note: Patient is present for URETHRAL MEATOTOMY F/U Urology Medication:TAMSULOSIN Antibiotic Allergy:NONE Blood Thinner:ASPIRIN Security System Analyst Required: No Allergies No Known Allergies [No Known Allergies*] Allergy (Verified 12/23/24 10:56) HPI Comments Details: Edd is a pleasant male. He is seen for the following urologic conditions. - urinary retention - lichen sclerosis Follow-up from meatotomy advancement Had swelling of glans resulting in catheter placement Catheter removed today Lower urinary tract symptoms Episode of urinary retention - had thought it may have been part of urinary tract infection however culture negative. Prior prostate procedure 2021 Retrograde ejaculation Lichen sclerosis penile tip Prior betamethasone Diabetic laboratories 09/14 - HbA1c 6.2 - testosterone 510 - PSA 1.6 PFSH Medical History GERD (gastroesophageal reflux disease) Lumbar degenerative disc disease Hypothyroid Diabetes Elevated cholesterol HTN (hypertension) Vitamin D deficiency Surgical History History of prostate surgery History of esophagogastroduodenoscopy (EGD) H/O colonoscopy Family History Mother Gangrene Father Diabetes Brother Diabetes Sister Diabetes Social History Household Members Other:: daughter Housing: Apartment Are you a primary care consultant to a significant other at home: No Do you presently have visiting nurse or other home services: No Alcohol intake: current Alcohol intake frequency: holidays/special occasions only Patient Tobacco Use Status: Former Tobacco user Tobacco use type: Cigarette Years Smoked: Quit 6 years ago. e-Cigarette/Vaping Use: Never Used Second Hand Smoke Exposure: No service: No Current occupational status: retired Cognitive needs: No Hearing needs: No Vision needs: Yes (reading glasses) Review of Systems Const Denies chills and Denies fever(s) Card Reports no additional complaints and Denies syncope Resp Denies cough GI Denies abdominal pain and Denies heartburn Reports as per HPI and Denies change in libido Neuro Denies syncope Psych Denies change in libido Endo Denies change in libido Physical Exam Const General: cooperative, healthy appearing, comfortable and no acute distress Orientation/consciousness: patient oriented x3 HEENT Face and sinus: Yes normal facial exam Mouth: moist mucous membranes Neck Neck: Yes normal visual inspection, Yes full ROM and Yes trachea midline Chest Chest palpation & inspection: normal inspection of the chest Resp Effort & Inspection: normal respiratory effort, able to speak in complete sentences and no respiratory distress GI Inspection: Yes normal to inspection Back/Spine/Pelvis Cervical Spine: normal cervical lordosis Thoracic/Lumbar Spine: thoracic and lumbar spine normal to inspection Skin General skin exam: no rashes or lesions noted Neuro General: patient oriented x3, gait normal, tone normal and moves all extremities Extrem General: Yes normal to inspection and Yes capillary refill normal Assessment & Plan Assessment & Plan (1) Bladder outlet obstruction: Code(s): N32.0 - Bladder-neck obstruction Category: Medical (2) Urethral meatal stenosis: Code(s): N35.919 - Unspecified urethral stricture, male, unspecified site Category: Medical Plan Six-month follow-up Medications: Refilled tamsulosin 0.4 mg PO BEDTIME 90 days 90 caps 1RF N13.8 - Other obstructive and reflux uropathy, N39.0 - Urinary tract infection, site not specified, N40.1 - Benign prostatic hyperplasia with lower urinary tract symptoms Patient Instructions: This note is constructed using voice recognition software. While every effort has been made to ensure accuracy mechanical system technician errors may have been included. Imaging studies, laboratory and physical exam results were discussed and reviewed in detail. No major barriers to patient understanding were identified. An opportunity to ask questions regarding the treatment plan was provided. All questions were answered. The patient expressed understanding and agreement with the above treatment plan. The patient is aware they should contact our office by phone for worsening of their current condition or the appearance of new urologic symptoms. Compliance is encouraged with any medications and followup testing that is ordered. It is a privilege to participate in the urologic care of your patient. If you have any questions or concerns regarding treatment for the above conditions, or other urologic issues, please do not hesitate to contact me. The office telephone contact is [phone]. Sincerely, Dr Faisal Diego MD, [facility] - Urology Compassionate Specialist Care for the Genitourinary System Coding Level of Care Code Est Pt Level 3 (56304) Diagnoses Bladder outlet obstruction N32.0 Urethral meatal stenosis N35.919
== END 2024-12-23 11:19 | disposition home or self-care (01) ==
LOC: HO.HUSH 10:42
PROVIDERS: Visit Provider Urology
DX: N32.0 Bladder-neck obstruction (principal); N35.919 Unspecified urethral stricture, male, unspecified site
CPT/HCPCS: 99024

== ENCOUNTER → 2024-12-23 10:42 | Outpatient (BNVA) | payer OTHER, SELFPAY | PROVIDERS: Visit Provider Urology | DX: N32.0 Bladder-neck obstruction (principal); N35.919 Unspecified urethral stricture, male, unspecified site | CPT/HCPCS: 99212 ==

== ENCOUNTER 2024-12-30 08:04 | Outpatient (REF) | payer OTHER, SELFPAY ==
[2024-12-30 09:47] LABS: MANUAL DIFF FLAG NO
[2024-12-30 10:01] LABS: Basophils Percent Auto 0.6 % (0-2); Eosinophils Percent Auto 1.2 % (0-4); Hematocrit 35.5 % (42.0-52.0); Imm Gran Abs Auto 0.03 X10*3/uL (0.00-0.03); Imm Gran Pct Auto 0.4 % (0.0-0.4); Lymphocytes Percent Auto 24.9 % (20-40); Mean Corpuscular HGB Conc 33.8 g/dl (31.0-36.0); Mean Corpuscular Hemoglobin 29.1 pg (27.0-33.0); Mean Corpuscular Volume 86.2 fL (80.0-98.0); Mean Platelet Volume 10.8 fL (9.4-12.4); Monocytes Percent Auto 6.3 % (2-11); Neutrophils Absolute Auto 4.6 x10*3/uL (2.0-8.3); Neutrophils Percent Auto 66.6 % (45-73); Platelet Count 312 X10*3/uL (160-400); Red Blood Count 4.12 X10*6/uL (4.60-5.80); Red Cell Distribution Width 11.7 % (11.0-16.0)
[2024-12-30 10:02] LABS: Eosinophils Absolute Auto 0.1 X10*3/uL (0.0-0.4); Lymphocytes Absolute Auto 1.7 X10*3/uL (1.2-4.9); Monocytes Absolute Auto 0.4 X10*3/uL (0.1-1.2)
[2024-12-30 10:17] LABS: Alanine Aminotransferase 22 U/L (0-40); Albumin Level 4.5 g/dL (3.5-5.0); Alkaline Phosphatase 53 U/L (39-117); Anion Gap 11 (12-20); Aspartate Amino Transferase 27 U/L (5-37); Bilirubin Total 0.5 mg/dL (0.0-1.0); Blood Urea Nitrogen 13 mg/dL (9-16); Calcium 9.2 mg/dL (8.4-10.2); Carbon Dioxide 30 mmol/L (22-29); Chloride 103 mmol/L (96-108); Estimated Glomerular Filt Rate > 60; Glucose Random 139 mg/dL (60-115); Potassium 4.2 mmol/L (3.3-5.1); Sodium 140 mmol/L (135-145); Total Protein 6.9 g/dL (6.5-8.0)
[2024-12-30 10:33] LABS: Prostate Specific Antigen 2.41 ng/mL (<0.05-4.0)
[2025-01-03 17:47] LABS: Testosterone, Total 290 ng/dL (250-1100)
== END 2024-12-30 08:05 | disposition home or self-care (01) ==
LOC: HO.10HDL 08:04
PROVIDERS: Urology; Visit Provider Internal Medicine
DX: Z00.00 Encounter for general adult medical examination without abnormal findings (principal); N32.0 Bladder-neck obstruction; N35.919 Unspecified urethral stricture, male, unspecified site; E03.8 Other specified hypothyroidism; E11.9 Type 2 diabetes mellitus without complications; I10 Essential (primary) hypertension; Z12.5 Encounter for screening for malignant neoplasm of prostate
CPT/HCPCS: 36415; 80053; 84153; 84403; 85025

== ENCOUNTER 2025-04-01 08:18 | Outpatient (REF) | payer OTHER, SELFPAY ==
[2025-04-01 10:40] LABS: Hemoglobin A1C 163.7299 umol/L; Total Hemoglobin (HGBA1C) 3491.6513 umol/L
[2025-04-01 10:46] LABS: Alanine Aminotransferase 21 U/L (0-40); Albumin Level 4.7 g/dL (3.5-5.0); Alkaline Phosphatase 62 U/L (39-117); Anion Gap 13 (12-20); Aspartate Amino Transferase 29 U/L (5-37); Blood Urea Nitrogen 13 mg/dL (9-16); Calcium 9.3 mg/dL (8.4-10.2); Carbon Dioxide 28 mmol/L (22-29); Chloride 102 mmol/L (96-108); Estimated Glomerular Filt Rate > 60; Potassium 3.7 mmol/L (3.3-5.1); Sodium 139 mmol/L (135-145); Total Protein 7.3 g/dL (6.5-8.0)
[2025-04-01 11:03] LABS: Thyroid Stimulating Hormone 5.49 uIU/mL (0.32-4.0)
== END 2025-04-01 08:19 | disposition home or self-care (01) ==
LOC: HO.10HDL 08:18
PROVIDERS: Visit Provider Internal Medicine
DX: E03.8 Other specified hypothyroidism (principal); E11.9 Type 2 diabetes mellitus without complications; I10 Essential (primary) hypertension
CPT/HCPCS: 36415; 80053; 83036; 84443

== ENCOUNTER 2025-05-21 22:53 | Emergency (ER) | payer OTHER, SELFPAY ==
[2025-05-21 23:14] VITALS: BP 149/77; PULSE 86; RESP 18; TEMP 36.3; O2SAT 97; BMI 28.3
--- NOTE | 2025-05-22 00:27 | ED.MALEGU ---
HPI - Male Genitourinary General Chief complaint: Urogenital-Male Stated complaint: unable to urinate Time Seen by Provider: 05/22/25 00:27 Source: patient Mode of arrival: ambulatory Limitations: no limitations History of Present Illness ED Provider: Dr. Busby HPI Narrative: This is a 65-year-old male history of ureteral strictures, bladder outlet obstruction presented hospital today for evaluation of increased urinary frequency. He has unable to urinate today therefore he presents to the ER for evaluation. However upon presentation to the ER patient has been to urinate without any issues. He is feeling much better. Related Data Home Medications ?Medication ?Instructions ?Recorded ?Confirmed pantoprazole 40 mg tablet,delayed 40 mg PO DAILY 06/17/23 11/22/24 release Previous Rx's ?Medication ?Instructions ?Recorded amlodipine 5 mg tablet 5 mg PO DAILY #30 tabs 06/17/23 atorvastatin 20 mg tablet 20 mg PO DAILY #30 tabs 06/17/23 fenofibrate micronized 134 mg 134 mg PO DAILY #30 caps 06/17/23 capsule levothyroxine 125 mcg tablet 125 mcg PO DAILY #30 tabs 06/17/23 losartan 100 mg tablet 100 mg PO DAILY #30 tabs 06/17/23 metformin 850 mg tablet 850 mg PO DAILY #30 tabs 06/17/23 aspirin 81 mg tablet,delayed 81 mg PO DAILY #30 tabs 12/05/23 release betamethasone dipropionate 0.05 % 1 appl topical BID #15 grams 07/02/24 topical ointment oxycodone-acetaminophen 5 mg-325 1 tab PO Q6H PRN mild pain (scale 11/22/24 mg tablet (Percocet) score 1-4) #8 tabs sulfamethoxazole 400 1 tab PO DAILY #10 tabs 11/22/24 mg-trimethoprim 80 mg tablet (Bactrim) tamsulosin 0.4 mg capsule 0.4 mg PO BEDTIME 90 days #90 caps 12/23/24 cephalexin 500 mg capsule 500 mg PO Q8H 7 days #21 caps 05/22/25 tamsulosin 0.4 mg capsule 0.4 mg PO BEDTIME 30 days #30 caps 05/22/25 Allergies Allergy/AdvReac Type Severity Reaction Status Date / Time No Known Allergies (No Known Allergy Verified 05/21/25 23:24 Allergies*) Review of Systems Review of Systems: Pertinent review of systems as mentioned in HPI. All other system otherwise negative. [facility] Past Medical History [facility] Narrative: Medical history as mentioned in HPI Medical History GERD (gastroesophageal reflux disease) Lumbar degenerative disc disease Hypothyroid Diabetes Elevated cholesterol HTN (hypertension) Vitamin D deficiency Surgical History History of prostate surgery History of esophagogastroduodenoscopy (EGD) H/O colonoscopy Family History Family History Mother Gangrene Father Diabetes Brother Diabetes Sister Diabetes Social History Social History Household Members Other:: daughter Housing: Apartment Are you a primary healthcare network pricing consultant to a significant other at home: No Do you presently have visiting nurse or other home services: No Alcohol intake: current Alcohol intake frequency: holidays/special occasions only Patient Tobacco Use Status: Former Tobacco user Tobacco use type: Cigarette Years Smoked: Quit 6 years ago. e-Cigarette/Vaping Use: Never Used Second Hand Smoke Exposure: No Advance Directives: No Advance Directives Information Provided: Yes Do you have a plan to hurt others: No Plan service: No Current occupational status: retired Cognitive needs: No Hearing needs: No Vision needs: Yes (reading glasses) Physical Exam Exam: Exam: General: Pleasant, no distress, interacting appropriately Head: Normacephalic, atraumatic Gastrointestinal: Soft, non distended, non tender, non guarding Neurological: Awake and alert, no facial droop noted Skin: Warm and dry Psychiatric: Appropriate mood and thoughts Vital Signs: Vital Signs: Last Vital Signs Temp 97.3 F 05/21/25 23:14 Pulse 86 05/21/25 23:14 Resp 18 05/21/25 23:14 BP 149/77 H 05/21/25 23:14 Pulse Ox 97 05/21/25 23:14 O2 Del Method Room Air 05/21/25 23:14 BMI result Body Mass Index 28.3 Medications Administered Discontinued Medications Generic Name Dose Route Start Last Admin Trade Name Freq PRN Reason Stop Dose Admin Tamsulosin HCl 0.4 mg 05/22/25 01:12 EST 05/22/25 01:09 EST Tamsulosin Hcl 0.4 Mg Capsule PO 05/22/25 01:13 EST 0.4 mg ONCE ONE Administration Medical Decision Making Medical Decision Making [facility] Narrative: This is a 65-year-old male presented hospital today for difficulty urinating. Patient is able to urinate upon arrival. UA did show signs of UTI. Keflex will be given to the patient. We will start patient on tamsulosin as well. We will plan to prescribe patient a course of Keflex he taking tamsulosin. Patient does follow Urology Clinic. He will plan to call to follow up with them. station engineer chief was used for this encounter. All questions were addressed. Differential Diagnosis Differential Diagnoses: The differential diagnosis associated with the presentation includes Urinary retention, UTI Lab Data [facility] Lab Attestation statement: I reviewed the patient's lab results. Labs: Lab Results 05/22/25 Range/Units 01:55 EST Urine Color Yellow Urine Appearance Clear Urine pH 8.0 (5.0-9.0) Ur Specific [place] 1.015 (1.005-1.025) Urine Protein Trace (Neg-Trace) mg/dL Urine Glucose (UA) Negative (Negative) mg/dL Urine Ketones Negative (Negative) mg/dL Urine Blood Small (1+) H (Negative) Urine Nitrite Positive H (Negative) Ur Leukocyte Esterase Large (3+) H (Negative) Prescription Management I considered prescription management with: Antibiotic Discharge Plan Discharge Clinical Impression: UTI (urinary tract infection) Qualifiers: Urinary tract infection type: site unspecified Hematuria presence: without hematuria Qualified Code(s): N39.0 - Urinary tract infection, site not specified Patient Disposition: Home, Self-Care Prescriptions: New cephalexin 500 mg capsule 500 mg PO Q8H 7 Days Qty: 21 0RF tamsulosin 0.4 mg capsule 0.4 mg PO BEDTIME 30 Days Qty: 30 0RF No Action aspirin 81 mg tablet,delayed release (DR/EC) 81 mg PO DAILY Qty: 30 3RF sulfamethoxazole-trimethoprim [Bactrim] 400-80 mg tablet 1 tab PO DAILY Qty: 10 0RF oxycodone-acetaminophen [Percocet] 5-325 mg tablet 1 tab PO Q6H PRN (Reason: mild pain (scale score 1-4)) Qty: 8 0RF Rx Instructions: Partial Fill upon patient request. pantoprazole 40 mg tablet,delayed release (DR/EC) 40 mg PO DAILY amlodipine 5 mg tablet 5 mg PO DAILY Qty: 30 3RF atorvastatin 20 mg tablet 20 mg PO DAILY Qty: 30 3RF fenofibrate micronized 134 mg capsule 134 mg PO DAILY Qty: 30 3RF levothyroxine 125 mcg tablet 125 mcg PO DAILY Qty: 30 3RF losartan 100 mg tablet 100 mg PO DAILY Qty: 30 3RF metformin 850 mg tablet 850 mg PO DAILY Qty: 30 3RF tamsulosin 0.4 mg capsule 0.4 mg PO BEDTIME 90 Days Qty: 90 1RF betamethasone dipropionate 0.05 % ointment 1 appl topical BID Qty: 15 0RF Rx Instructions: Thin coat 2 times per day Print Language: Bahamian
[2025-05-22 01:02] LABS: Appearance Urine Clear; Glucose Urine UA Negative (Negative); PH 8.0 (5.0-9.0); Specific Gravity - Urine 1.015 (1.005-1.025)
[2025-05-22 02:37] LABS: UACC Culture Trigger YES
[2025-05-22 02:43] VITALS: BP 132/79; PULSE 87; RESP 18; TEMP 36.4; O2SAT 98
--- NOTE | 2025-05-26 15:15 | ED.MALEGU ---
HPI - Male Genitourinary General Chief complaint: Urogenital-Male Stated complaint: unable to urinate Time Seen by Provider: 05/22/25 00:27 Source: patient Mode of arrival: ambulatory Limitations: no limitations Related Data Home Medications ?Medication ?Instructions ?Recorded ?Confirmed pantoprazole 40 mg tablet,delayed 40 mg PO DAILY 06/17/23 11/22/24 release Previous Rx's ?Medication ?Instructions ?Recorded amlodipine 5 mg tablet 5 mg PO DAILY #30 tabs 06/17/23 atorvastatin 20 mg tablet 20 mg PO DAILY #30 tabs 06/17/23 fenofibrate micronized 134 mg 134 mg PO DAILY #30 caps 06/17/23 capsule levothyroxine 125 mcg tablet 125 mcg PO DAILY #30 tabs 06/17/23 losartan 100 mg tablet 100 mg PO DAILY #30 tabs 06/17/23 metformin 850 mg tablet 850 mg PO DAILY #30 tabs 06/17/23 aspirin 81 mg tablet,delayed 81 mg PO DAILY #30 tabs 12/05/23 release betamethasone dipropionate 0.05 % 1 appl topical BID #15 grams 07/02/24 topical ointment oxycodone-acetaminophen 5 mg-325 1 tab PO Q6H PRN mild pain (scale 11/22/24 mg tablet (Percocet) score 1-4) #8 tabs sulfamethoxazole 400 1 tab PO DAILY #10 tabs 11/22/24 mg-trimethoprim 80 mg tablet (Bactrim) tamsulosin 0.4 mg capsule 0.4 mg PO BEDTIME 90 days #90 caps 12/23/24 cephalexin 500 mg capsule 500 mg PO Q8H 7 days #21 caps 05/22/25 tamsulosin 0.4 mg capsule 0.4 mg PO BEDTIME 30 days #30 caps 05/22/25 Allergies Allergy/AdvReac Type Severity Reaction Status Date / Time No Known Allergies (No Known Allergy Verified 05/21/25 23:24 Allergies*) [facility] Past Medical History Medical History GERD (gastroesophageal reflux disease) Lumbar degenerative disc disease Hypothyroid Diabetes Elevated cholesterol HTN (hypertension) Vitamin D deficiency Surgical History History of prostate surgery History of esophagogastroduodenoscopy (EGD) H/O colonoscopy Family History Family History Mother Gangrene Father Diabetes Brother Diabetes Sister Diabetes Social History Social History Household Members Other:: daughter Housing: Apartment Are you a primary physician assistant primary care to a significant other at home: No Do you presently have visiting nurse or other home services: No Alcohol intake: current Alcohol intake frequency: holidays/special occasions only Patient Tobacco Use Status: Former Tobacco user Tobacco use type: Cigarette Years Smoked: Quit 6 years ago. e-Cigarette/Vaping Use: Never Used Second Hand Smoke Exposure: No Advance Directives: No Advance Directives Information Provided: Yes Do you have a plan to hurt others: No Plan service: No Current occupational status: retired Cognitive needs: No Hearing needs: No Vision needs: Yes (reading glasses) Physical Exam Vital Signs: Vital Signs: Last Vital Signs Temp 97.6 F 05/22/25 02:43 Pulse 87 05/22/25 02:43 Resp 18 05/22/25 02:43 BP 132/79 05/22/25 02:43 Pulse Ox 98 05/22/25 02:43 O2 Del Method Room Air 05/22/25 02:43 BMI result Body Mass Index 28.3 Course Reevaluation(s) Reevaluation #1: Patient seen in the department recently for urinary retention. UA culture positive for E coli. Patient is sent home with cephalexin, and pathogen is susceptible to this antibiotic. Time: 15:15 Medications Administered Discontinued Medications Generic Name Dose Route Start Last Admin Trade Name Freq PRN Reason Stop Dose Admin Cephalexin HCl 500 mg 05/22/25 01:34 EST 05/22/25 02:21 Cephalexin 500 Mg Capsule PO 05/22/25 01:35 EST 500 mg ONCE ONE Administration Tamsulosin HCl 0.4 mg 05/22/25 01:12 EST 05/22/25 01:09 EST Tamsulosin Hcl 0.4 Mg Capsule PO 05/22/25 01:13 EST 0.4 mg ONCE ONE Administration Medical Decision Making Lab Data Labs: Lab Results 05/22/25 Range/Units 01:55 EST Urine Color Yellow Urine Appearance Clear Urine pH 8.0 (5.0-9.0) Ur Specific [place] 1.015 (1.005-1.025) Urine Protein Trace (Neg-Trace) mg/dL Urine Glucose (UA) Negative (Negative) mg/dL Urine Ketones Negative (Negative) mg/dL Urine Blood Small (1+) H (Negative) Urine Nitrite Positive H (Negative) Ur Leukocyte Esterase Large (3+) H (Negative) Urine RBC 6-10 H (0-2) /HPF Urine WBC >50 (0-5) /HPF Ur Squamous Epith Cells 0-2 (0-2) /HPF Urine Bacteria 1+ (None Seen) Hyaline Casts 0-2 (0-2) /LPF Discharge Plan Discharge Clinical Impression: UTI (urinary tract infection) Patient Disposition: Home, Self-Care Prescriptions: New cephalexin 500 mg capsule 500 mg PO Q8H 7 Days Qty: 21 0RF tamsulosin 0.4 mg capsule 0.4 mg PO BEDTIME 30 Days Qty: 30 0RF No Action aspirin 81 mg tablet,delayed release (DR/EC) 81 mg PO DAILY Qty: 30 3RF sulfamethoxazole-trimethoprim [Bactrim] 400-80 mg tablet 1 tab PO DAILY Qty: 10 0RF oxycodone-acetaminophen [Percocet] 5-325 mg tablet 1 tab PO Q6H PRN (Reason: mild pain (scale score 1-4)) Qty: 8 0RF Rx Instructions: Partial Fill upon patient request. pantoprazole 40 mg tablet,delayed release (DR/EC) 40 mg PO DAILY amlodipine 5 mg tablet 5 mg PO DAILY Qty: 30 3RF atorvastatin 20 mg tablet 20 mg PO DAILY Qty: 30 3RF fenofibrate micronized 134 mg capsule 134 mg PO DAILY Qty: 30 3RF levothyroxine 125 mcg tablet 125 mcg PO DAILY Qty: 30 3RF losartan 100 mg tablet 100 mg PO DAILY Qty: 30 3RF metformin 850 mg tablet 850 mg PO DAILY Qty: 30 3RF tamsulosin 0.4 mg capsule 0.4 mg PO BEDTIME 90 Days Qty: 90 1RF betamethasone dipropionate 0.05 % ointment 1 appl topical BID Qty: 15 0RF Rx Instructions: Thin coat 2 times per day Interventions: ED Discharge Assessment Last Done: 05/22/25 02:43 Discharge Date/Time: 05/22/25 02:45 Print Language: Upper Sorbian
== END 2025-05-22 02:45 | disposition home or self-care (01) ==
PROVIDERS: Emergency Provider Student in an Organized Health Care Education/Training Program; PCP Internal Medicine
DX: N39.0 Urinary tract infection, site not specified (principal); R33.9 Retention of urine, unspecified; Z79.899 Other long term (current) drug therapy; Z87.891 Personal history of nicotine dependence
CPT/HCPCS: 81001; 87086; 87088; 87186; 99282; 99283

== ENCOUNTER 2025-06-24 11:06 | Outpatient (AMB) | payer OTHER, SELFPAY ==
--- NOTE | 2025-06-24 11:29 | MHC.OFFVIS ---
Intake Visit Reasons: [facility]- Retention/UTI(No Temple)set Intake Note: Reason for Visit: [facility] 05/22/2025- Urinary Retention/UTI Urology Meds: Tamsulosin Blood Thinners: Aspirin Labs: PSA- 2.41 Total Testosterone- 290 (12/30/2024) Urine Culture: 05/22/2025 Imaging: None Last PVR: 49mls PVR: 185ml Nurse Research Required: No Accompanied by: Self / Same As Patient Allergies No Known Allergies (No Known Allergies*) Allergy (Verified 06/24/25 11:31) HPI Comments Details: Edd is a pleasant male. He is seen for the following urologic conditions. - urinary retention - lichen sclerosis Early follow-up Episode of UTI Urinary retention Pansensitive E coli Treated with antibiotics PVR today 180 cc Has progressive lichen sclerosis Penile meatus is doing well Using 14 Afghan female catheter well lubricated was placed in penile meatus narrowing encountered approximately 2 cm from penile tip Encouraged to dilate once per week CPT 02760 Lower urinary tract symptoms Episode of urinary retention - had thought it may have been part of urinary tract infection however culture negative. Prior prostate procedure 2021 Retrograde ejaculation Lichen sclerosis penile tip Prior betamethasone V-Y advancement for meatal stricture Diabetic laboratories 09/14, HbA1c 6.2, testosterone 510, PSA 1.6 PFSH Medical History GERD (gastroesophageal reflux disease) Lumbar degenerative disc disease Hypothyroid Diabetes Elevated cholesterol HTN (hypertension) Vitamin D deficiency Surgical History History of prostate surgery History of esophagogastroduodenoscopy (EGD) H/O colonoscopy Family History Mother Gangrene Father Diabetes Brother Diabetes Sister Diabetes Social History Household Members Other:: daughter Housing: Apartment Are you a primary child care associate to a significant other at home: No Do you presently have visiting nurse or other home services: No Alcohol intake: current Alcohol intake frequency: holidays/special occasions only Patient Tobacco Use Status: Former Tobacco user Tobacco use type: Cigarette Years Smoked: Quit 6 years ago. e-Cigarette/Vaping Use: Never Used Second Hand Smoke Exposure: No service: No Current occupational status: retired Cognitive needs: No Hearing needs: No Vision needs: Yes (reading glasses) Review of Systems Const Denies chills and Denies fever(s) Card Reports no additional complaints and Denies syncope Resp Denies cough GI Denies abdominal pain and Denies heartburn Reports as per HPI and Denies change in libido Neuro Denies syncope Psych Denies change in libido Endo Denies change in libido Physical Exam Const General: cooperative, healthy appearing, comfortable and no acute distress Orientation/consciousness: patient oriented x3 HEENT Face and sinus: Yes normal facial exam Mouth: moist mucous membranes Neck Neck: Yes normal visual inspection, Yes full ROM and Yes trachea midline Chest Chest palpation & inspection: normal inspection of the chest Resp Effort & Inspection: normal respiratory effort, able to speak in complete sentences and no respiratory distress GI Inspection: Yes normal to inspection Back/Spine/Pelvis Cervical Spine: normal cervical lordosis Thoracic/Lumbar Spine: thoracic and lumbar spine normal to inspection Skin General skin exam: no rashes or lesions noted Neuro General: patient oriented x3, gait normal, tone normal and moves all extremities Extrem General: Yes normal to inspection and Yes capillary refill normal Office Procedures Post Void Residual Post Residual Void Post Void Residual (PVR): [id number] Void Residual by ultrasound Procedure Thyroid Biopsy Procedural Documentation: urethral dilatation initial see above CPT 23577 Results AMB Urinalysis, Automated UA Leukoctes 0 Sally/uL Last Edit by MELA Thomas on 06/24/25 11:41 UA Nitrite Negative Last Edit by MELA Thomas on 06/24/25 11:41 UA Urobilinogen 0.2 mg/dL Last Edit by MELA Thomas on 06/24/25 11:41 UA Protein 15 mg/dL Last Edit by MELA Thomas on 06/24/25 11:41 UA pH 6.0 Last Edit by MELA Thomas on 06/24/25 11:41 UA Blood 0 Yeyo/uL Last Edit by MELA Thomas on 06/24/25 11:41 UA Specific [place] 1.015 Last Edit by MELA Thomas on 06/24/25 11:41 UA Ketone Negative Last Edit by Kim Hatch, RMA on 06/24/25 11:41 UA Bilirubin 0 mg/dL Last Edit by Kim Hatch, RMA on 06/24/25 11:41 UA Glucose 0 mg/dL Last Edit by Kim Hatch, RMA on 06/24/25 11:41 Results Reviewed Results Reviewed: Laboratory Last Values Urine pH (Auto) 6.0 06/24/25 11:40 Specific [place] (Auto) 1.015 06/24/25 11:40 Urine Protein (Auto) 15 mg/dL 06/24/25 11:40 Glucose (UA)(Auto) 0 mg/dL 06/24/25 11:40 Urine Ketones (Auto) Negative 06/24/25 11:40 Urine Blood (Auto) 0 Yeyo/uL 06/24/25 11:40 Urine Nitrite (Auto) Negative 06/24/25 11:40 Urine Bilirubin (Auto) 0 mg/dL 06/24/25 11:40 Urine Urobilinogen (Auto) 0.2 mg/dL 06/24/25 11:40 Leukocyte Esterase (Auto) 0 Sally/uL 06/24/25 11:40 Assessment & Plan Assessment & Plan (1) Urethral meatal stenosis: Code(s): N35.919 - Unspecified urethral stricture, male, unspecified site Category: Medical (2) Bladder outlet obstruction: Code(s): N32.0 - Bladder-neck obstruction Category: Medical Plan Dilate weekly Six-month follow-up Orders: Orders AMB Post Void Residual by ultrasound Today N32.0 - Bladder-neck obstruction AMB Urinalysis Automated Today Z13.9 - Encounter for screening, unspecified Patient Instructions: This note is constructed using voice recognition software. While every effort has been made to ensure accuracy vacuum frame operator errors may have been included. Imaging studies, laboratory and physical exam results were discussed and reviewed in detail. No major barriers to patient understanding were identified. An opportunity to ask questions regarding the treatment plan was provided. All questions were answered. The patient expressed understanding and agreement with the above treatment plan. The patient is aware they should contact our office by phone for worsening of their current condition or the appearance of new urologic symptoms. Compliance is encouraged with any medications and followup testing that is ordered. It is a privilege to participate in the urologic care of your patient. If you have any questions or concerns regarding treatment for the above conditions, or other urologic issues, please do not hesitate to contact me. The office telephone contact is [phone]. Sincerely, Dr Faisal Diego MD, [facility] - Urology Compassionate Specialist Care for the Genitourinary System Coding Level of Care Code Est Pt Level 3 (10173) Diagnoses Urethral meatal stenosis N35.919 Bladder outlet obstruction N32.0 CPT Codes Post Residual Void - PVR CPT Code: 65785-Tgak Void Residual by ultrasound ([id number])
== END 2025-06-24 11:56 | disposition home or self-care (01) ==
LOC: HO.HUSH 11:07
PROVIDERS: Visit Provider Urology
DX: N35.919 Unspecified urethral stricture, male, unspecified site (principal); N32.0 Bladder-neck obstruction; Z13.9 Encounter for screening, unspecified
CPT/HCPCS: 99213

== ENCOUNTER → 2025-06-24 11:06 | Outpatient (BNVA) | payer OTHER, SELFPAY | PROVIDERS: Visit Provider Urology | DX: N32.0 Bladder-neck obstruction (principal); N35.919 Unspecified urethral stricture, male, unspecified site | CPT/HCPCS: 51798; 81003; 99212 ==